=== PATIENT | female | born 1970 | race Caucasian/White ===

== ENCOUNTER 2016-10-09 15:42 | Inpatient (IN) | payer MEDICAID ==
[~2016-10-09] VITALS: Ht 165.1 cm; Wt 57.0 kg
[2016-10-09] VITALS (16 sets, daily range): BP systolic 95–118; BP diastolic 57–73; PULSE 82–90; RESP 13–22; TEMP 98.1; Ht 165.1 cm; Wt 57.0 kg
[2016-10-09] MEDS ORDERED: ONDANSETRON 4 MG INJ IV STA (16:05)
[2016-10-09] MEDS ORDERED: morphine 4 MG/ML VIAL IV STA (16:05)
[2016-10-09] MEDS ORDERED: SOD CHLORIDE 0.9% 1,000 ML IV STA (16:05)
[2016-10-09 16:20] LABS: BASOPHIL # 0.1 10^3/ul (0.0-0.1); BASOPHILS % 0.2 % (0.0-2.0); HEMATOCRIT 44.1 % (37.0-47.0); HEMOGLOBIN 15.4 g/dl (12.0-16.0); LYMPHOCYTES # 0.8 10^3/ul (0.8-2.9); LYMPHOCYTES % 3.7 % (15.0-51.0); MEAN CORPUSCULAR HEMOGLOBIN 30.4 pg (29.0-33.0); MEAN CORPUSCULAR HGB CONC 34.9 g/dl (32.0-37.0); MEAN PLATELET VOLUME 10.4 fl (7.4-10.4); MONOCYTE # 0.4 10^3/ul (0.3-0.9); NEUTROPHIL # 19.4 10^3/ul (1.6-7.5); NEUTROPHILS % 93.6 % (39.0-77.0); PLATELET COUNT 308 10^3/UL (140-415); RED BLOOD COUNT 5.07 10^6/ul (4.20-5.40); RED CELL DISTRIBUTION WIDTH 13.2 % (11.5-14.5); WHITE BLOOD COUNT 20.8 10^3/ul (4.8-10.8)
[2016-10-09 16:29] LABS: ADD UMIC YES; UR ASCORBIC ACID NEGATIVE (NEGATIVE); UR BACTERIA FEW /HPF (NONE SEEN); UR BILIRUBIN (Dip) NEGATIVE (NEGATIVE); UR BLOOD (Dip) 1+ mg/dL (NEGATIVE); UR CLARITY SLIGHTLY CLOUDY (CLEAR); UR COLOR YELLOW (YELLOW); UR GLUCOSE (Dip) NEGATIVE (NEGATIVE); UR KETONES (Dip) 2+ mg/dL (NEGATIVE); UR LEUKOCYTE ESTERASE (Dip) NEGATIVE Leu/ul (NEGATIVE); UR MUCUS MANY /HPF (NONE SEEN); UR NITRITE (Dip) NEGATIVE (NEGATIVE); UR RBC 3 /HPF (0-5); UR SPECIFIC GRAVITY (Dip) 1.025 (1.003-1.030); UR TOTAL PROTEIN (Dip) 1+ mg/dl (NEGATIVE); UR UROBILINOGEN (Dip) NEGATIVE (NEGATIVE)
[2016-10-09 16:39] LABS: ALBUMIN 4.7 g/dl (3.3-4.9); ALBUMIN/GLOBULIN RATIO 1.23; CALCIUM 9.5 mg/dl (8.4-10.2); CREATININE 0.61 mg/dl (0.44-1.00); POTASSIUM 3.5 mmol/L (3.5-5.1); TOTAL PROTEIN 8.5 g/dl (6.1-8.1)
--- NOTE | 2016-10-09 17:15 | RADRPT ---
PROCEDURE: CT Abdomen and Pelvis without contrast. CLINICAL INDICATION: Abdominal pain TECHNIQUE: CT scan of the abdomen and pelvis without contrast was performed. The patient was scann ed without intravenous contrast. Coronal and sagittal reformatted images were obtained from the axi al source images. Use of iterative reconstruction technique was employed. Images were reviewed on a high-resolution PACS workstation. images. The calculated radiation dose measures 325.28 mGy centimet ers. The CTDI measures 6.34 mGy. One or more of the following dose reduction techniques were used: - Automated exposure control. - Adjustment of the mA and/or kV according to patient size . - Use of iterative reconstruction technique. Images were reviewed on a high-resolution PACS workstation COMPARISON: None. FINDINGS: CT abdomen: The lung bases are clear. The heart size is normal, without pericardial thickening or effusion. Th e liver is normal in size and density without focal mass or intrahepatic biliary dilatation. The sp gary is normal in size and homogeneous in density. The stomach is partially collapsed, but is gross ly unremarkable. The pancreas as visualized is normal. The gallbladder and biliary tree are unrem arkable and there is no evidence for biliary dilatation. The adrenal glands are symmetric and ruben l. The kidneys are symmetrically unremarkable as well. No renal calculus or obstructive uropathy o r mass lesion is seen. The aorta is of normal caliber. There is no retroperitoneal lymphadenopathy. The tosha hepatis la on is clear. The bowel and mesentery, as visualized, are equally unremarkable. CT pelvis: The small bowel loops situated within the pelvis are unremarkable. The pelvic organs are normal. Th ere is a markedly thickened appendix with surrounding mesenteric inflammation. There are also a sma ll foci of extraluminal air at the tip of the appendix. No nodes are present in the mesentery in th e right lower quadrant. No drainable fluid collection is identified. The surrounding osseous structures are intact. Sclerotic foci are seen in the right and left ilium, presumably bone islands. In addition is for a over the IMPRESSION: 1. Evidence of acute appendicitis with findings of microperforation at the tip noting small foci of extraluminal air. No drainable fluid collection is identified. 2. Reactive mesenteric lymphadenopathy. 3. Multiple, benign-appearing sclerotic foci presumably bone islands. No further follow-up is nece ssary unless there are focal symptoms in this region or if there is history of malignancy. In this i s the case a non emergent MRI of the pelvis may be obtained for further assessment. RPTAT: PP .Wilder Hansen MD, MD Date Time Electronically viewed and signed by .Wilder Hansen MD, on 10/09/2016 17:15 .d/
--- NOTE | 2016-10-09 18:12 | ERA ---
ER Documentation Chief Complaint Date/Time DATE: 10/09/16 TIME: 18:08 Chief Complaint RT LOWER ABD PAIN X 2 DAYS WITH VOMITING , SENT BY PMD TO [facility] This 45-year-old female presents with right lower quadrant abdominal pain for 2- 3 days. She has had some episodes of vomiting. She has not been able to eat since yesterday around 7 PM. She did see her primary care doctor who sent her to the emergency room out of worry for appendicitis. Pain is described as a sharp pain. ROS All systems reviewed and are negative except as per history of present illness. Medications Home Meds No Active Prescriptions or Reported Meds Allergies Allergies: Coded Allergies: No Known Allergy (Unverified , 10/09/16) PMhx/Soc Medical and Surgical Hx: pt denies Medical Hx History of Surgery: Yes (HYSTERECTOMY) Anesthesia Reaction: No Hx Alcohol Use: No Hx Substance Use: No Hx Tobacco Use: No Smoking Status: Never smoker Physical Exam Vitals Vital Signs Date Time Temp Pulse Resp B/P Pulse Ox O2 Delivery O2 Flow Rate FiO2 10/09/16 17:03 95 22 120/70 99 Room Air 10/09/16 16:15 98.1 83 18 116/74 100 Room Air 10/09/16 15:46 99.6 92 18 127/57 100 Physical Exam Const: [] Mild distress Head: Atraumatic Eyes: Normal Conjunctiva ENT: Normal External Ears, Nose and Mouth. Neck: Full range of motion..~ No meningismus. Resp: Clear to auscultation bilaterally Cardio: Regular rate and rhythm, no murmurs Abd: Soft, moderate right lower quadrant and mid abdominal tenderness with mild voluntary guarding, non distended. Normal bowel sounds Skin: No petechiae or rashes Back: No midline or flank tenderness Ext: No cyanosis, or edema Neur: Awake and alert Psych: Normal Mood and Affect Result Diagram: 10/09/16 1600 10/09/16 1600 Results 24 hrs Laboratory Tests Test 10/09/16 16:00 White Blood Count 20.810^3/ul Red Blood Count 5.0710^6/ul Hemoglobin 15.4g/dl Hematocrit 44.1% Mean Corpuscular Volume 87.0fl Mean Corpuscular Hemoglobin 30.4pg Mean Corpuscular Hemoglobin Concent 34.9g/dl Red Cell Distribution Width 13.2% Platelet Count 02104^3/UL Mean Platelet Volume 10.4fl Neutrophils % 93.6% Lymphocytes % 3.7% Monocytes % 2.0% Eosinophils % 0.0% Basophils % 0.2% Nucleated Red Blood Cells % 0.0/100WBC Neutrophils # 19.410^3/ul Lymphocytes # 0.810^3/ul Monocytes # 0.410^3/ul Eosinophils # 0.010^3/ul Basophils # 0.110^3/ul Nucleated Red Blood Cells # 0.010^3/ul Urine Color YELLOW Urine Clarity SLIGHTLY CLOUDY Urine pH 5.0 Urine Specific [place] 1.025 Urine Ketones 2+mg/dL Urine Nitrite NEGATIVEmg/dL Urine Bilirubin NEGATIVEmg/dL Urine Urobilinogen NEGATIVEmg/dL Urine Leukocyte Esterase NEGATIVELeu/ul Urine Microscopic RBC 3/HPF Urine Microscopic WBC 2/HPF Urine Bacteria FEW/HPF Urine Mucus MANY/HPF Urine Hemoglobin 1+mg/dL Urine Glucose NEGATIVEmg/dL Urine Total Protein 1+mg/dl Sodium Level 142mmol/L Potassium Level 3.5mmol/L Chloride Level 99mmol/L Carbon Dioxide Level 24mmol/L Anion Gap 23 Blood Urea Nitrogen 12mg/dl Creatinine 0.61mg/dl Glucose Level 123mg/dl Calcium Level 9.5mg/dl Total Bilirubin 1.0mg/dl Direct Bilirubin 0.00mg/dl Indirect Bilirubin 1.0mg/dl Aspartate Amino Transf (AST/SGOT) 27IU/L Alanine Aminotransferase (ALT/SGPT) 36IU/L Alkaline Phosphatase 87IU/L Total Protein 8.5g/dl Albumin 4.7g/dl Globulin 3.80g/dl Albumin/Globulin Ratio 1.23 Lipase 32U/L Current Medications Medications (Trade) Dose Ordered Sig/Kofi Route PRN Reason Start Time Stop Time Status Last Admin Dose Admin Sodium Chloride (NS) 1,000 ml @ 1,000 mls/hr Q1H STAT IV 10/09/16 16:05 10/09/16 17:04 DC 10/09/16 16:20 Morphine Sulfate (morphine) 4 mg ONCE STAT IV 10/09/16 16:05 10/09/16 16:08 DC 10/09/16 16:20 Ondansetron HCl (Zofran Inj) 4 mg ONCE STAT IV 10/09/16 16:05 10/09/16 16:08 DC 10/09/16 16:20 Ceftriaxone Sodium 1 gm 1 gm ONCE ONCE IM 10/09/16 18:30 10/09/16 18:31 Metronidazole 100 ml @ 100 mls/hr ONCE ONCE IVPB 10/09/16 18:30 10/09/16 19:29 Sodium Chloride (NS) 1,000 ml @ 1,000 mls/hr Q1H ONCE IV 10/09/16 18:30 10/09/16 19:29 Procedures/MDM Acute appendicitis. Patient was given 2 L of fluid as well as Zofran, morphine. Rocephin and Flagyl IV also. Her pain was helped but not resolved her nausea was completely resolved. I spoke with Dr. Rm Fried, general surgeon personnel generalist manager who is in the OR and asked that the patient be sent immediately to the operating room. She is being admitted to Dr. Ray. CT abdomen pelvis interpretation: Acute appendicitis, no bowel obstruction, mild microperforation evidence, no fractures Departure Diagnosis: Primary Impression: Acute appendicitis Condition: Serious RAYMON CARUSO DO Oct 09, 2016 18:12
[2016-10-09] MEDS ORDERED: metroNIDAZOLE 500 MG/NS (PMX) 100 ML IVPB ONE (18:30)
[2016-10-09] MEDS ORDERED: ONDANSETRON 4 MG INJ IV PRN ×3 (18:30→19:30)
[2016-10-09] MEDS ORDERED: SOD CHLORIDE 0.9% 1,000 ML IV ONE (18:30)
[2016-10-09] MEDS ORDERED: ACETAMINOPHEN 325 MG TAB PO PRN ×2 (18:30→19:30)
[2016-10-09] MEDS ORDERED: CEFTRIAXONE 1 GM INJ IM ONE (18:30)
[2016-10-09] MEDS ORDERED: PROPOFOL 20 ML ONE (18:41)
[2016-10-09] MEDS ORDERED: GLYCOPYRROLATE 0.4 MG INJ ONE (18:41)
[2016-10-09] MEDS ORDERED: NEOSTIGMINE 3 MG/3 ML SYRINGE ONE (18:41)
[2016-10-09] MEDS ORDERED: CEFAZOLIN 1 GM INJ ONE (18:41)
[2016-10-09] MEDS ORDERED: ROCURONIUM 50 MG INJ ONE (18:41)
[2016-10-09] MEDS ORDERED: DEXAMETHASONE 4 MG/ML 1 ML INJ ONE (18:42)
[2016-10-09] MEDS ORDERED: FENTAnyl 50 MCG/ML VIAL ONE (18:42)
[2016-10-09] MEDS ORDERED: ONDANSETRON 4 MG INJ ONE (18:42)
[2016-10-09] MEDS ORDERED: MIDAZOLAM 1 MG/ML 2 ML INJ ONE (18:42)
--- NOTE | 2016-10-09 18:42 | OPR ---
Date/Time of Note Date/Time of Note DATE: 10/09/16 TIME: 18:41 Operative Report Procedure Description [facility] CONS[facility] DATE OF SERVICE: 10/09/2016 PLACE OF SERVICE: [facility], preoperative area ASSESSMENT AND PLAN: A very-pleasant and otherwise healthy 45-year-old lady without significant known comorbidities her past history, presenting to the emergency department at [facility] for signs and symptoms consistent with acute appendicitis as demonstrated by her history and physical, elevated white blood cell count to [address] scan findings possibly pointing to localized perforation of appendix with no drainable abscess. This is despite her relatively otherwise normal-appearing laboratory values. I counseled her regarding undergoing laparoscopic, possible open appendectomy, reviewed the operation in details including the risks, benefits and alternatives and answered all of her questions. Patient appeared to understand and wish to proceed with surgery. With above assessment, I've recommended the followin. To the operating room for above Thank you very much for having me involved in the care of this very pleasant patient and wonderful family. If you have any questions, please feel free to contact me at [phone]. Nature of presenting problem: Moderate severity Please note that, given the limited number of diagnoses or management options, the moderate amount and/or complexity of data needed to be reviewed, and moderate risk of complications and/or morbidity or mortality, this qualifies as moderate complexity type of decision-making. Disclaimer: Inadvertent spelling and grammatical errors are likely due to EHR/ dictation software use and do not reflect on the quality of delivered patient care. Also, please note that the electronic time recorded on this node does not necessarily reflect the actual time of the visit. Updated clinical summary: Patient is a very-pleasant and otherwise healthy 45-year-old lady without significant known comorbidities her past history, presenting to the emergency department at [facility] for signs and symptoms consistent with acute appendicitis as demonstrated by her history and physical, elevated white blood cell count to [address] scan findings possibly pointing to localized perforation of appendix with no drainable abscess. This is despite her relatively otherwise normal-appearing laboratory values. Comorbidities: 1. Hysterectomy for fibroids at [place] 2017 CONSULTATION REQUESTED BY: Lisa Ray MD HISTORY OF PRESENT ILLNESS: The patient is very-pleasant and otherwise healthy 45-year-old lady without significant known comorbidities her past history, presenting to the emergency department at [facility] for signs and symptoms consistent with acute appendicitis as demonstrated by her history and physical, elevated white blood cell count to [address] scan findings possibly pointing to localized perforation of appendix with no drainable abscess. This is despite her relatively otherwise normal-appearing laboratory values. Her pain started about 2 days ago. There was associated nausea and vomiting (approximately 10 episodes). She also reported having fevers. She was seen at her primary care physician's office and she was sent to the emergency room for workup regarding appendicitis. Pain was described as periumbilical with radiation to right lower quadrant. Some nausea but no significant vomiting and no blood in the stool or urine. No fevers or chills reported. No other major complaints. ALLERGIES: NO KNOWN DRUG ALLERGIES MEDICATIONS Documented in the electronic records and reviewed by me. Please see the electronic records for details, as well as details for inpatient medications which were also reviewed by me. SOCIAL HISTORY: The patient lives with family.-Tob;-ETOH;-IVDU FAMILY HISTORY: There are no significant medical, surgical or oncologic issues in the family as reported by the patient or reflected in the chart. REVIEW OF SYSTEMS: Other than mentioned above, there were no other pertinent positives or pertinent negatives in an otherwise complete 14 point review of systems. PHYSICAL EXAMINATION GENERAL: The patient appears to be a very pleasant lady of descent lying in bed, appearing stated age, and otherwise in no acute distress. BMI: 23 VITAL SIGNS: AVSS (please also see auto important data if available as well as the electronic records) HEENT: Normocephalic and atraumatic. Extraocular muscles and hearing are grossly intact bilaterally and symmetrically. Sclerae are nonicteric. Oral cavity is clear; oral mucosa appear to be pink and moist. Dentition: fair. NECK: Supple. There is no lymphadenopathy or JVD. There is no submental, submandibular or supraclavicular lymphadenopathy. CHEST: Rises symmetrically with each breath; patient is breathing comfortably. There are no audible wheezes, rales or rhonchi on the gross exam. HEART: Pulse is regular and palpable on the right wrist. Capillary refill is normal. Carotid pulses are palpable bilaterally and symmetrically in the neck. EXTREMITIES: Lower extremities contain no pitting edema around the ankles bilaterally and symmetrically. ABDOMEN: Abdomen is soft, mild to moderately tender in the right lower quadrant and nondistended. No evidence of ascites, organomegaly, caput medusae , engorged subcutaneous veins, or other abnormalities. There are no peritoneal signs or guarding. SKIN: Appears to be pink and feels warm to touch. NEUROLOGIC: Awake, alert, and follows commands appropriately. LABORATORY DATA: White blood cell count 20.8, hemoglobin 15.4, platelets 308. Electrolytes are normal. CO2 24. Creatinine 0.61. Liver function and injury parameters normal. Albumin 4.7 before resuscitation. Lipase 32. Urinalysis showed no nitrite or leukocyte Estrace. IMAGING: See electronic chart. Please note that I've personally reviewed all pertinent available images and I agree in general with their overall reported findings. CT scan abdomen and pelvis [facility] 10/09/2016 IMPRESSION: 1. Evidence of acute appendicitis with findings of microperforation at the tip noting small foci of extraluminal air. No drainable fluid collection is identified. 2. Reactive mesenteric lymphadenopathy. 3. Multiple, benign-appearing sclerotic foci presumably bone islands. No further follow-up is necessary unless there are focal symptoms in this region or if there is history of malignancy. In this is the case a non emergent MRI of the pelvis may be obtained for further assessment. VIDAL ARROYO M.D. Oct 09, 2016 18:42
[2016-10-09 18:57] LABS: INR 0.95; PROTIME 12.7 Sec (12.2-14.2)
[2016-10-09] MEDS ORDERED: PHENYLephrine (100 MCG/ML) 5ML SYG ONE (19:01)
[2016-10-09] MEDS ORDERED: SOD CHLORIDE 0.9% 1,000 ML IV SCH (19:08)
[2016-10-09] MEDS ORDERED: BUPIVACAINE 0.25%/EPI (SDV) 30 ML INJ INJ ONE (19:13)
[2016-10-09] MEDS ORDERED: KETOROLAC 30 MG INJ ONE (19:17)
[2016-10-09] MEDS ORDERED: LABETALOL HCL 20MG INJ IV PRN (19:30)
[2016-10-09] MEDS ORDERED: DIPHENHYDRAMINE 50 MG INJ IV PRN (19:30)
[2016-10-09] MEDS ORDERED: hydrALAzine 20 MG INJ IV PRN (19:30)
[2016-10-09] MEDS ORDERED: IPRATROPIUM (NEB) 0.5 MG/2.5 ML AMP HHN PRN (19:30)
[2016-10-09] MEDS ORDERED: ALBUTEROL 0.083% (NEB) 2.5 MG/3 ML AMP HHN PRN (19:30)
[2016-10-09] MEDS ORDERED: HYDROCODONE/APAP (5/325) TAB PO PRN (19:30)
[2016-10-09] MEDS ORDERED: LORAZEPAM 2 MG INJ IV PRN (19:30)
[2016-10-09] MEDS ORDERED: NITROGLYCERIN (SL) 0.4 MG TAB SL PRN (19:30)
[2016-10-09] MEDS ORDERED: NACL 0.9% 3 ML SYG IV SCH (19:30)
[2016-10-09] MEDS ORDERED: NA PHOSPHATE/BIPHOS 133 ML ENEMA PR PRN ×2 (19:30→20:00)
[2016-10-09] MEDS ORDERED: HYDROmorphONE (0.2 MG/ML) 10ML SYG IV PRN ×3 (19:30)
[2016-10-09] MEDS ORDERED: OXYCODONE/ACETAMINOPHEN (5/325) TAB PO PRN ×2 (19:30)
[2016-10-09] MEDS ORDERED: FENTAnyl 50 MCG/ML VIAL IV PRN ×3 (19:30)
[2016-10-09] MEDS ORDERED: MEPERIDINE 25 MG INJ IV PRN (19:30)
[2016-10-09] MEDS ORDERED: morphine 2 MG INJ IV PRN (19:30)
[2016-10-09] MEDS ORDERED: EPHEDrine SULFATE 50 MG/5 ML SYG IV PRN (19:30)
[2016-10-09] MEDS ORDERED: ALBUTEROL/IPRATROPIUM (NEB) 3 ML AMP HHN PRN (19:30)
[2016-10-09] MEDS ORDERED: MAGNESIUM HYDROXIDE 30ML CUP PO PRN (19:30)
[2016-10-09] MEDS ORDERED: DOCUSATE SODIUM 100 MG CAP PO PRN ×2 (19:30→20:00)
[2016-10-09] MEDS ORDERED: MIDAZOLAM 1 MG/ML 2 ML INJ IV PRN (19:30)
[2016-10-09] MEDS ORDERED: TRIMETHOBENZAMIDE 100 MG/ML VIAL IM PRN (19:30)
[2016-10-09] MEDS ORDERED: BISACODYL 10 MG SUPP PR PRN (20:00)
[2016-10-09] MEDS ORDERED: HYDROmorphONE 1 MG/ML SYG IV PRN (20:00)
--- NOTE | 2016-10-09 20:10 | OPR ---
Date/Time of Note Date/Time of Note DATE: 10/09/16 TIME: 20:10 Operative Report Procedure Description [facility]IENT [facility] PLACE OF SERVICE: [facility] DATE OF SURGERY: 10/09/2016 PREOPERATIVE DIAGNOSIS: 1. Acute appendicitis with possible perforation 2. Hysterectomy for fibroids at [place] [address] POSTOPERATIVE DIAGNOSIS: 1. Acute appendicitis with likely sealed perforation and presence of intra- abdominal pus 2. Hysterectomy for fibroids at [place] 2016 OPERATION: 1. Laparoscopic appendectomy SURGEON: Vidal Arroyo M.D. AUTISM MOTOR SPECIALIST: Hever ANESTHESIA: General endotracheal tube anesthesia ANESTHESIOLOGIST: Marco A Rendon M.D. BRIEF SUMMARY: An otherwise uncomplicated laparoscopic appendectomy was performed with findings of likely sealed perforation of appendix with presence of pus in the abdominal cavity. Updated clinical summary: Patient is a very-pleasant and otherwise healthy 45-year-old lady without significant known comorbidities her past history, presenting to the emergency department at [facility] for signs and symptoms consistent with acute appendicitis as demonstrated by her history and physical, elevated white blood cell count to [address] scan findings possibly pointing to localized perforation of appendix with no drainable abscess. This is despite her relatively otherwise normal-appearing laboratory values. Comorbidities: 1. Hysterectomy for fibroids at [place] [address] BRIEF HISTORY: The patient is a very-pleasant and otherwise healthy 45-year-old lady without significant known comorbidities her past history, presenting to the emergency department at [facility] for signs and symptoms consistent with acute appendicitis as demonstrated by her history and physical, elevated white blood cell count to [address] scan findings possibly pointing to localized perforation of appendix with no drainable abscess. This is despite her relatively otherwise normal-appearing laboratory values. I met with the patient and family (daughter) and counseled them regarding the possible options of treatment, and I strongly suggested a laparoscopic, possible open appendectomy. We reviewed the operation in detail as well as the risks, benefits , alternatives, and expected outcomes of this operation. After careful consideration of all the risks, benefits, and alternatives, the patient and family appeared to understand those risks and wished to proceed with surgery. For a detailed report of my consultation with patient and family, please refer to my separate consultation note. STATEMENT OF THE INFORMED CONSENT: The patient and family appeared to understand the risks of the operation to include, but not be limited to risk of postoperative pain and scar tissue, possible infection or bleeding requiring other interventions such as opening the wound, placement of drainage catheters, or other operative interventions; possible injury to surrounding to structures including bowel, bladder, bile duct, or blood vessels, or solid organs such as liver, kidney, or pancreas requiring other interventions or procedures; possible leakage of bowel from anastomotic sites or suture lines causing significant increase in morbidity and mortality and requiring multiple interventions including but not limited to, placement of drainage catheters, imaging studies, as well as operative interventions; possible other source of sepsis such as urinary tract infections or pneumonias, or other sources of potentially life threatening problems such as deep venous thrombus formation causing pulmonary embolism, myocardial arrhythmias and infarctions, and even . After careful consideration of all their options, the patient and family appeared to understand and wished to proceed with surgery. DESCRIPTION OF PROCEDURE: After obtaining informed consent, the patient was brought into the operating room and was placed in a normal supine position, where successful general endotracheal tube anesthesia was performed. Intravenous access was already in place and intravenous antimicrobials had been appropriately chosen and dosed prior to the operation. The patient's abdominal skin was prepped and draped from the nipple line down to the level of the upper thighs in the usual sterile fashion. We then called a surgical time-out where the patient's identification, date of , nature of the operation, allergies , presence of intravenous antimicrobials, presence of needed equipment, and any other concerns were reviewed and agreed upon by all members of the operating room team. We then started the operation by placing a 5 mm skin incision in the left lower quadrant and then introduced a 5 mm [employer] trocar into the peritoneal space, visualizing all the layers of the abdominal wall as we entered. Note that there was no indication of any injury to underlying structures with our entry into the peritoneal space. We insufflated the abdominal cavity to a maximum pressure of 15 mmHg and again inspected the area of insertion and ensured no obvious injury to underlying structures prior to inspecting the abdominal cavity and showing no obvious pus, bowel contents, or other abnormal features. We could not see the appendix very well. There was evidence of pus in the abdominal cavity. We, therefore, injected the future sites of our other trocars with 0.25% Marcaine with epinephrine and placed a 5 mm [employer] trocar into the midline suprapubic area, taking care not to injure the bladder. We also placed a 12 mm trocar in the umbilical midline area, all under direct visualization. With our instruments in place, we had excellent visualization and access to the right lower quadrant. We then identified the appendix, which was inflamed but had a normal base coming out of the cecum. There was pus in the abdominal cavity and in the pelvis that we suctioned off. The appendix appeared to be focally necrotic in the middle of the body and adherent onto the right pelvic sidewall, but no organized abscess was found around it. The base appeared to be healthy. I then went ahead and used judicious amount of cautery as well as mostly blunt dissection to circumferentially isolate the base of the appendix and then transected this using one firing of the white load of the Endo-RUTH stapler. We also repeated the firing on the mesentery of the appendix and completely disconnected the organ from the colon, delivered this out through the 12 mm trocar site inside of an EndoCatch bag without having to enlarge the fascial defect as well as without contaminating the wound. The specimen was sent to Pathology for further analysis. We then ensured adequate hemostasis and bile stasis, suctioned off any remaining purulent fluid from the pelvis and abdominal cavity, removed all our equipment including the pneumoperitoneum from the abdominal cavity prior to closing the infraumbilical fascia with 1 figure-of -eight 0 Vicryl suture on a UR-6 needle, washing the wounds with copious amounts of normal saline, injecting the initial insertion point of the trocar with 0.25% Marcaine with epinephrine, and then closing the skin using interrupted 4-0 Monocryl sutures. Light dressing was then applied. At the end of the operation, both the sponge count and needle count were reportedly correct x2. The patient tolerated the procedure without any reported complications. ESTIMATED BLOOD LOSS: Less than 10 mL. BLOOD OR BLOOD PRODUCT TRANSFUSIONS: None to my knowledge. SPECIMENS: 1. Appendix COMPLICATIONS: None. DISPOSITION: Recovery area. Disclaimer: Inadvertent spelling and grammatical errors are likely due to EHR/ dictation software use and do not reflect on the quality of delivered patient care. VIDAL ARROYO M.D. Oct 09, 2016 20:10
[2016-10-09 20:54] LABS: INR 1.09; PROTIME 14.1 Sec (12.2-14.2); PT RATIO 1.1
[2016-10-09 20:55] LABS: PARTIAL THROMBOPLASTIN TIME 27.5 Sec (25.0-35.0)
[2016-10-09] MEDS: HYDROmorphONE 1 MG/ML SYG IV PRN (22:00)
[2016-10-09] MEDS: HEPARIN 5,000 UNIT/0.5 ML VIAL SC SCH (22:04)
[2016-10-09] MEDS: D5W-0.45 NACL + KCL 20 MEQ 1,000 ML IV SCH (22:05)
[2016-10-10] MEDS: PIPER-TAZO 3.375 GM IV (PMX) 100 ML IVPB SCH ×5 (00:07→20:46)
[2016-10-10 02:07] VITALS: BP 124/68; PULSE 94; RESP 18
[2016-10-10] MEDS: HYDROmorphONE 1 MG/ML SYG IV PRN ×4 (02:47→22:31)
[2016-10-10 04:17] VITALS: BP 95/65; PULSE 74; RESP 18
--- NOTE | 2016-10-10 05:37 | HP ---
Date/Time of Note Date/Time of Note DATE: 10/10/16 TIME: 05:28 Assessment/Plan VTE Prophylaxis VTE Prophylaxis Intervention: SCD's Lines/Catheters IV [facility]from [facility]): Peripheral IV Assessment/Plan Assessment/Plan 1. Acute appendicitis with likely sealed perforation and presence of intra- abdominal pus: Status post successful laparoscopic appendectomy - patient is in stable condition and has been tolerating water intake. - will continue Zosyn for now. Will provide pain medication and antiemetics as needed. 2. Sepsis, as evidenced by leukocytosis and tachycardia: Secondary to perforated appendicitis and likely UTI from yeast infection (cottage cheese like discharge from vagina) -Continue Zosyn. I will start patient on fluconazole. Will follow up on urine culture and blood culture results. 3. Urinary retention: As a result of post surgery vs UTI - s/p in-n-out cath with over 800 cc of urine. We will monitor for now without placement of Correa catheter. 4. History of uterine fibroids: Status post JOSE several months ago. HPI/ROS Admit Date/Time Admit Date/Time Hx of Present Illness This is a 45-year-old female with a history of uterine fibroid status post total abdominal hysterectomy several months ago who presented to the emergency department with 2 days history of right-sided abdominal pain and vomiting. CT abdomen/pelvis showed acute appendicitis with microperforation. She had WBC of almost 21,000. She was taken to the OR and she is now status post laparoscopic appendectomy. Postop diagnosis is Acute appendicitis with likely sealed perforation and presence of intra-abdominal pus. After patient was brought to the floor she was feeling well with only minimal abdominal pain with movement. Later on however patient had difficulty with urination. Bladder scan showed about 600 cc of urine. We just did in-n-out cath and 800 cc of urine was obtained. Per nurse, it appears that patient has a yeast infection was cottage cheese like discharge from her vagina. Overall however patient is feeling well with minimal pain at the surgical site. She denied chest pain, shortness of breath, fever/chills nausea or vomiting. . PMH/Family/Social Social History Smoking Status: Never smoker Exam/Review of Systems Vital Signs Vitals Vital Signs Date Time Temp Pulse Resp B/P Pulse Ox O2 Delivery O2 Flow Rate FiO2 10/10/16 04:17 98.3 74 18 95/65 98 Room Air 7/22/17 20:48 2.0 Intake and Output 10/09/16 10/09/16 10/10/16 15:00 23:00 07:00 Intake Total 1500 ml 100 ml Output Total 15 ml Balance 1485 ml 100 ml Exam Constitutional: alert, oriented, well developed Head: atraumatic, normocephalic Eyes: EOMI, PERRL Respiratory: clear to auscultation, normal air movement Cardiovascular: nl pulses, regular rate and rhythm Gastrointestinal: other (minimal tenderness around surgical sites), soft, surgical scars Extremities: normal pulses Labs Result Diagram: 10/09/16 1600 10/09/16 1600 Medications Medications Current Medications Ondansetron HCl (Zofran Inj) 4 mg Q6H PRN IV NAUSEA AND/OR VOMITING; Start at 19:30 Acetaminophen (Tylenol Tab) 650 mg Q6H PRN PO PAIN LEVEL 1-3 OR FEVER; Start at 19:30 Magnesium Hydroxide (Milk Of Mag) 30 ml DAILY PRN PO CONSTIPATION; Start at 19:30 Heparin Sodium (Porcine) (Heparin (5000 Units/0.5 ml)) 5,000 unit Q12 SC Last administered on 10/09/16 22:04; Admin Dose 5,000 UNIT; Start 10/09/16 at 21:00 ; Status Future hold Lorazepam 0.5 mg 0.5 mg Q6H PRN IV ANXIETY; Start 10/09/16 at 19:30 Piperacillin Sod/ Tazobactam Sod (Zosyn 3.375gm/ 100 ml (Pmx)) 100 ml @ 200 mls /hr Q6 IVPB Last administered on 10/10/16 05:22; Admin Dose 200 MLS/HR; Start 10/10/16 at 00:00 Hydralazine HCl (Apresoline) 10 mg Q6H PRN IV ELEVATED BLOOD PRESSURE; Start at 19:30 Nitroglycerin 1 tab 1 tab Q5M PRN SL ANGINA; Start 10/09/16 at 19:30 Potassium Chloride/Dextrose/ Sod Cl (D5-1/2ns + KCl 20 Meq) 1,000 ml @ 100 mls/ hr Q10H IV Last administered on 10/09/16 22:05; Admin Dose 100 MLS/HR; Start 10/09/16 at 19:53 Acetaminophen/ Hydrocodone Bitart ([place] (5/325)) 1 tab Q4H PRN PO PAIN LEVEL 4 -7; Start 10/09/16 at 20:00 Acetaminophen/ Hydrocodone Bitart ([place] (5/325)) 2 tab Q4H PRN PO PAIN LEVEL 7 -10; Start 10/09/16 at 20:00 Hydromorphone HCl (Dilaudid) 0.5 mg Q2H PRN IV PAIN; Start 10/09/16 at 20:00 Hydromorphone HCl (Dilaudid) 1 mg Q2H PRN IV PAIN Last administered on t 02:47; Admin Dose 1 MG; Start 10/09/16 at 20:00 Docusate Sodium (Colace) 100 mg BID PRN PO CONSTIPATION; Start 10/09/16 at 20: 00 Bisacodyl (Dulcolax Supp) 10 mg BID PRN [place] CONSTIPATION; Start 10/09/16 at 20: 00 Sodium Biphosphate/ Sodium Phosphate (Fleet Enema) 133 ml BID PRN [place] CONSTIPATION; Start 10/09/16 at 20:00 Famotidine (Pepcid Iv) 20 mg DAILY IV ; Start 10/10/16 at 09:00 YAS ESTRADA MD Oct 10, 2016 05:37
[2016-10-10 05:38] LABS: INR 1.3; PARTIAL THROMBOPLASTIN TIME 27.6 Sec (25.0-35.0); PROTIME 16.3 Sec (12.2-14.2); PT RATIO 1.3
[2016-10-10 05:46] LABS: CHOL/HDL RATIO 2.7 RATIO
[2016-10-10] MEDS: D5W-0.45 NACL + KCL 20 MEQ 1,000 ML IV SCH (05:55)
[2016-10-10] MEDS ORDERED: PANTOPRAZOLE 40 MG INJ IV SCH (06:00)
[2016-10-10 06:02] LABS: ALBUMIN 2.7 g/dl (3.3-4.9); ALBUMIN/GLOBULIN RATIO 1.03; BILIRUBIN,INDIRECT 1.2 mg/dl (0-1.1); BILIRUBIN,TOTAL 1.2 mg/dl (0.2-1.3); CALCIUM 7.8 mg/dl (8.4-10.2); CREATININE 0.64 mg/dl (0.44-1.00); POTASSIUM 4.1 mmol/L (3.5-5.1); TOTAL PROTEIN 5.3 g/dl (6.1-8.1)
[2016-10-10 06:16] LABS: THYROID STIMULATING HORMONE 1.15 MIU/L (0.465-4.680)
[2016-10-10] MEDS ORDERED: SOD CHLORIDE 0.9% 250 ML IV ONE (07:00)
[2016-10-10 07:44] LABS: ABNORMAL IP MESSAGE 1; BASOPHIL # 0.1 10^3/ul (0.0-0.1); BASOPHILS % 0.2 % (0.0-2.0); HEMATOCRIT 31.3 % (37.0-47.0); HEMOGLOBIN 10.7 g/dl (12.0-16.0); LYMPHOCYTES # 0.7 10^3/ul (0.8-2.9); LYMPHOCYTES % 3.2 % (15.0-51.0); MEAN CORPUSCULAR HEMOGLOBIN 30.8 pg (29.0-33.0); MEAN CORPUSCULAR HGB CONC 34.2 g/dl (32.0-37.0); MEAN CORPUSCULAR VOLUME 90.2 fl (82.0-101.0); MEAN PLATELET VOLUME 11.3 fl (7.4-10.4); MONOCYTE # 0.2 10^3/ul (0.3-0.9); MONOCYTES % 1.1 % (0.0-11.0); NEUTROPHIL # 20.2 10^3/ul (1.6-7.5); PLATELET COUNT 237 10^3/UL (140-415); RED BLOOD COUNT 3.47 10^6/ul (4.20-5.40); RED CELL DISTRIBUTION WIDTH 13.6 % (11.5-14.5); WHITE BLOOD COUNT 21.3 10^3/ul (4.8-10.8)
[2016-10-10 07:53] LABS: NEUTROPHILS % 94.9 % (39.0-77.0); POSITIVE DIFF @See below
[2016-10-10] MEDS ORDERED: FLUCONAZOLE 200 MG/NS (PMX) 100 ML IVPB SCH (08:00)
[2016-10-10] MEDS: HEPARIN 5,000 UNIT/0.5 ML VIAL SC SCH ×2 (08:42→21:01)
[2016-10-10] MEDS ORDERED: ENOXAPARIN 40 MG/0.4 ML SYG SC SCH (09:00)
[2016-10-10] MEDS ORDERED: FAMOTIDINE 20 MG INJ IV SCH (09:00)
[2016-10-10 09:18] LABS: CALCIUM 7.8 mg/dl (8.4-10.2); CREATININE 0.65 mg/dl (0.44-1.00); MAGNESIUM 1.6 mg/dl (1.7-2.5); POTASSIUM 4.2 mmol/L (3.5-5.1)
[2016-10-10 09:44] VITALS: BP 93/50; RESP 18
--- NOTE | 2016-10-10 11:44 | PN ---
Date/Time of Note Date/Time of Note DATE: 10/10/16 TIME: 11:44 Assessment/Plan Lines/Catheters IV Catheter Type (from [facility]): Peripheral IV Correa in Place (from [facility]): No Assessment/Plan Assessment/Plan [facility] Progress Note Date of Service: 10/10/2016 Place of service: [facility] fourth floor Today's Assessment & Plan: Overall stable and doing well. No evidence for obvious postoperative complications or surgical site infections. No indication for acute surgical intervention. Given the amount of pus in the abdomen, I recommend that we keep the patient in house at least 1 more day and monitor her carefully. With above assessment, I've recommended the following for today: 1. Keep in-house 2. Increased activity 3. Increase incentive spirometry 4. Labs in a.m. 5. Regular diet 6. Possible discharge plans for tomorrow 7. Continue antimicrobials for 3 more doses Thank you again for your great care of this very pleasant patient and wonderful family. If there are any questions, please feel free to call me at [phone]. Nature of presenting problem: High severity Please note that, given the multiple number of diagnoses or management options, the moderate amount and/or complexity of data needed to be reviewed, and I risk of complications and/or morbidity or mortality, this qualifies as moderate to high complexity type of decision-making. Disclaimer: Inadvertent spelling and grammatical errors are likely due to EHR/ dictation software use and do not reflect on the quality of delivered patient care. Also, please note that the electronic time recorded on this node does not necessarily reflect the actual time of the visit. Updated clinical summary: Patient is a very-pleasant and otherwise healthy 45-year-old lady without significant known comorbidities her past history, presenting to the emergency department at [facility] for signs and symptoms consistent with acute appendicitis as demonstrated by her history and physical, elevated white blood cell count to [address] scan findings possibly pointing to localized perforation of appendix with no drainable abscess. This is despite her relatively otherwise normal-appearing laboratory values. Status post an otherwise uncomplicated laparoscopic appendectomy was performed with findings of likely sealed perforation of appendix with presence of pus in the abdominal cavity at [facility] on 10/09/2016. Comorbidities: 1. Acute appendicitis with likely sealed perforation and presence of intra- abdominal pus. Status post an otherwise uncomplicated laparoscopic appendectomy was performed with findings of likely sealed perforation of appendix with presence of pus in the abdominal cavity at [facility] on 2016. 2. Hysterectomy for fibroids at [place] [id number] Subjective: No major events or complaints other than urinary retention that required straight cathing; no major abd pain and under control with medications; no n/v/d ; no sob or cp; + flatus; - BM; + activity Objective: Vitals: See below I's & O's: See below Exam: GENERAL: On exam, the patient was lying in bed and appeared to be comfortable and in no acute distress. ABDOMEN: Soft, nontender and nondistended. Incision dressings are clean, dry and intact without any evidence of obvious underlying erythema, edema, discharge , or hernia. There are no peritoneal signs or guarding. SKIN: Skin appears to be pink and feels warm to touch. NEUROLOGIC: Patient is awake, alert, and follows commands appropriately. Labs: See below Exam/Review of Systems Vital Signs Vitals Vital Signs Date Time Temp Pulse Resp B/P Pulse Ox O2 Delivery O2 Flow Rate FiO2 10/10/16 09:44 98.2 80 18 93/50 99 10/10/16 04:17 Room Air 10/09/16 20:48 2.0 Intake and Output 10/09/16 10/09/16 10/10/16 15:00 23:00 07:00 Intake Total 1500 ml 1400 ml Output Total 15 ml 900 ml Balance 1485 ml 500 ml Results Result Diagram: 10/10/16 0444 10/10/16 0445 VIDAL ARROYO M.D. Oct 10, 2016 11:44
--- NOTE | 2016-10-10 15:28 | PN ---
Date/Time of Note Date/Time of Note DATE: 10/10/16 TIME: 15:23 Assessment/Plan VTE Prophylaxis VTE Prophylaxis Intervention: ambulation Lines/Catheters [facility] Peripheral IV Urinary Cath still in place: No Assessment/Plan Chief Complaint/Hosp Course Patient is a 45-year-old female with a no significant past medical history except for uterine fibroids status post total abdominal hysterectomy who presents for abdominal pain found to have acute appendicitis. Assessment Acute appendicitis with perforation and intra-abdominal pus Sepsis Urinary retention Lactic acidosis, resolved Leukocytosis Plan -General surgery following, status post laparoscopic appendectomy with appendiceal perforation -Continue antibiotics for now -General surgery states possible DC tomorrow Kev Saldaña DO Problems: Subjective 24 Hr Interval Summary Free Text/Dictation abdominal pain, but mild. Exam/Review of Systems Vital Signs Vitals Vital Signs Date Time Temp Pulse Resp B/P Pulse Ox O2 Delivery O2 Flow Rate FiO2 10/10/16 09:44 98.2 80 18 93/50 99 10/10/16 04:17 Room Air 10/09/16 20:48 2.0 Intake and Output 10/09/16 10/09/16 10/10/16 15:00 23:00 07:00 Intake Total 1500 ml 1400 ml Output Total 15 ml 900 ml Balance 1485 ml 500 ml Exam Physical exam General: Patient is laying in bed and answers questions appropriately Mentation: Patient is alert and oriented 4, Head: Normocephalic atraumatic Eyes: EOMI, pupils reactive to light Neck: Supple, nontender, midline Respiratory: Clear to auscultation bilaterally Cardiovascular: regular rate, no obvious murmurs Gastrointestinal: mildly tender to palpation, bowel sounds heard. Neurological: Moves all extremities spontaneously Skin: No new skin lesions Results Result Diagram: 10/10/16 0444 10/10/16 0445 Results 24 hrs Laboratory Tests Test 10/09/16 16:00 10/09/16 20:30 10/10/16 04:44 10/10/16 04:45 White Blood Count 20.8 H 21.3 H Red Blood Count 5.07 3.47 #L Hemoglobin 15.4 10.7 #L Hematocrit 44.1 31.3 #L Mean Corpuscular Volume 87.0 90.2 Mean Corpuscular Hemoglobin 30.4 30.8 Mean Corpuscular Hemoglobin Concent 34.9 34.2 Red Cell Distribution Width 13.2 13.6 Platelet Count 308 237 # Mean Platelet Volume 10.4 11.3 H Neutrophils % 93.6 H 94.9 H Lymphocytes % 3.7 L 3.2 L Monocytes % 2.0 1.1 Eosinophils % 0.0 0.0 Basophils % 0.2 0.2 Nucleated Red Blood Cells % 0.0 0.0 Neutrophils # 19.4 H 20.2 H Lymphocytes # 0.8 0.7 L Monocytes # 0.4 0.2 L Eosinophils # 0.0 0.0 Basophils # 0.1 0.1 Nucleated Red Blood Cells # 0.0 0.0 Prothrombin Time 12.7 14.1 16.3 H Prothrombin Time Ratio 1.0 1.1 1.3 INR International Normalized Ratio 0.95 1.09 1.30 Activated Partial Thromboplast Time 26.0 27.5 27.6 Urine Color YELLOW Urine Clarity SLIGHTLY CLOUDY A Urine pH 5.0 Urine Specific [place] 1.025 Urine Ketones 2+ H Urine Nitrite NEGATIVE Urine Bilirubin NEGATIVE Urine Urobilinogen NEGATIVE Urine Leukocyte Esterase NEGATIVE Urine Microscopic RBC 3 Urine Microscopic WBC 2 Urine Bacteria FEW A Urine Mucus MANY A Urine Hemoglobin 1+ H Urine Glucose NEGATIVE Urine Total Protein 1+ H Sodium Level 142 138 Potassium Level 3.5 4.2 Chloride Level 99 103 Carbon Dioxide Level 24 21 Anion Gap 23 H 18 H Blood Urea Nitrogen 12 11 Creatinine 0.61 0.65 Glucose Level 123 232 H Calcium Level 9.5 7.8 L Total Bilirubin 1.0 1.2 Direct Bilirubin 0.00 0.00 Indirect Bilirubin 1.0 1.2 H Aspartate Amino Transf (AST/SGOT) 27 32 Alanine Aminotransferase (ALT/SGPT) 36 29 Alkaline Phosphatase 87 42 # Total Protein 8.5 H 5.3 #L Albumin 4.7 2.7 #L Globulin 3.80 H 2.60 Albumin/Globulin Ratio 1.23 1.03 Lipase 32 Free Thyroxine 1.19 Hemoglobin A1c 5.1 Lactic Acid Level 2.6 *H Phosphorus Level 3.0 Magnesium Level 1.6 L B-Type Natriuretic Peptide 505 H Triglycerides Level 27 Cholesterol Level 98 L LDL Cholesterol, Calculated 57 HDL Cholesterol 36 Cholesterol/HDL Ratio 2.7 Thyroid Stimulating Hormone (TSH) 1.150 Test 10/10/16 12:16 Lactic Acid Level 1.8 Medications Medications Current Medications Ondansetron HCl (Zofran Inj) 4 mg Q6H PRN IV NAUSEA AND/OR VOMITING; Start at 19:30 Acetaminophen (Tylenol Tab) 650 mg Q6H PRN PO PAIN LEVEL 1-3 OR FEVER; Start at 19:30 Magnesium Hydroxide (Milk Of Mag) 30 ml DAILY PRN PO CONSTIPATION; Start at 19:30 Heparin Sodium (Porcine) (Heparin (5000 Units/0.5 ml)) 5,000 unit Q12 SC Last administered on 10/10/16 08:42; Admin Dose 5,000 UNIT; Start 10/09/16 at 21:00 ; Status Future hold Lorazepam (Ativan) 0.5 mg Q6H PRN IV ANXIETY; Start 10/09/16 at 19:30 Hydralazine HCl (Apresoline) 10 mg Q6H PRN IV ELEVATED BLOOD PRESSURE; Start at 19:30 Nitroglycerin (Nitroglycerin (Sl Tab) 0.4 Mg) 1 tab Q5M PRN SL ANGINA; Start at 19:30 Acetaminophen/ Hydrocodone Bitart ([place] (5/325)) 1 tab Q4H PRN PO PAIN LEVEL 4 -7; Start 10/09/16 at 20:00 Acetaminophen/ Hydrocodone Bitart ([place] (5/325)) 2 tab Q4H PRN PO PAIN LEVEL 7 -10; Start 10/09/16 at 20:00 Hydromorphone HCl (Dilaudid) 0.5 mg Q2H PRN IV PAIN; Start 10/09/16 at 20:00 Hydromorphone HCl (Dilaudid) 1 mg Q2H PRN IV PAIN Last administered on 08:41; Admin Dose 1 MG; Start 10/09/16 at 20:00 Docusate Sodium (Colace) 100 mg BID PRN PO CONSTIPATION; Start 10/09/16 at 20: 00 Bisacodyl (Dulcolax Supp) 10 mg BID PRN [place] CONSTIPATION; Start 10/09/16 at 20: 00 Sodium Biphosphate/ Sodium Phosphate (Fleet Enema) 133 ml BID PRN [place] CONSTIPATION; Start 10/09/16 at 20:00 KEV SALDAÑA Oct 10, 2016 15:28
[2016-10-10 20:58] VITALS: BP 102/61; RESP 16
[2016-10-11] MEDS: PIPER-TAZO 3.375 GM IV (PMX) 100 ML IVPB SCH ×5 (01:30→17:15)
[2016-10-11] MEDS: HYDROmorphONE 1 MG/ML SYG IV PRN ×2 (01:45→06:12)
[2016-10-11 05:22] LABS: BASOPHILS % 0.1 % (0.0-2.0); EOSINOPHILS % 0.1 % (0.0-7.0); HEMATOCRIT 24.2 % (37.0-47.0); HEMOGLOBIN 8.2 g/dl (12.0-16.0); LYMPHOCYTES # 0.9 10^3/ul (0.8-2.9); LYMPHOCYTES % 5.5 % (15.0-51.0); MEAN CORPUSCULAR HEMOGLOBIN 30.8 pg (29.0-33.0); MEAN CORPUSCULAR HGB CONC 33.9 g/dl (32.0-37.0); MONOCYTE # 0.3 10^3/ul (0.3-0.9); MONOCYTES % 1.9 % (0.0-11.0); NEUTROPHIL # 15.6 10^3/ul (1.6-7.5); NEUTROPHILS % 91.6 % (39.0-77.0); PLATELET COUNT 189 10^3/UL (140-415); RED BLOOD COUNT 2.66 10^6/ul (4.20-5.40); RED CELL DISTRIBUTION WIDTH 13.9 % (11.5-14.5)
[2016-10-11 05:36] LABS: INR 1.22; PARTIAL THROMBOPLASTIN TIME 34.7 Sec (25.0-35.0); PROTIME 15.5 Sec (12.2-14.2); PT RATIO 1.2
[2016-10-11 05:37] LABS: ALBUMIN/GLOBULIN RATIO 0.93
[2016-10-11 06:20] LABS: ALBUMIN 2.7 g/dl (3.3-4.9); BILIRUBIN,INDIRECT 0.2 mg/dl (0-1.1); BILIRUBIN,TOTAL 0.2 mg/dl (0.2-1.3); CALCIUM 8.1 mg/dl (8.4-10.2); CREATININE 0.66 mg/dl (0.44-1.00); MAGNESIUM 1.8 mg/dl (1.7-2.5); PHOSPHORUS 2.5 mg/dl (2.5-4.9); POTASSIUM 3.6 mmol/L (3.5-5.1); TOTAL PROTEIN 5.6 g/dl (6.1-8.1)
[2016-10-11 06:25] LABS: CALCIUM 8.1 mg/dl (8.4-10.2); CREATININE 0.69 mg/dl (0.44-1.00); POTASSIUM 3.7 mmol/L (3.5-5.1)
[2016-10-11] MEDS: HYDROCODONE/APAP (5/325) TAB PO PRN ×2 (08:38→16:12)
[2016-10-11] MEDS: HEPARIN 5,000 UNIT/0.5 ML VIAL SC SCH ×2 (08:39→20:27)
[2016-10-11 09:30] VITALS: BP 102/64; RESP 18
--- NOTE | 2016-10-11 13:55 | PN ---
Date/Time of Note Date/Time of Note DATE: 10/11/16 TIME: 13:52 Assessment/Plan VTE Prophylaxis VTE Prophylaxis Intervention: heparin Lines/Catheters IV [facility] (from [facility] [place] Urinary Cath still in place: No Assessment/Plan Chief Complaint/Hosp Course 1. Acute appendicitis with likely sealed perforation and presence of intra- abdominal pus. Status post laparoscopic appendectomy on 10/09/2016. Continue antimicrobials. 2. Urinary retention. Probably secondary to the effects of anesthesia. Resolved. 3. Leukocytosis. Most probably secondary to #1. Continue antibiotics including coverage for anaerobes. 4. Normocytic, normochromic anemia. Etiology unclear. Monitor H&H closely. Transfuse as needed. 5. Lactic acidosis. Probably secondary to #1. Resolved. No evidence of any septic shock. 6. Fluids, electrolytes, and nutrition. Regular diet. 7. DVT prophylaxis. Subcutaneous heparin. 8. Gastrointestinal prophylaxis. H2 receptor blockers. 9. Plan. Patient continues to have leukocytosis. Patient also had a febrile episode in the morning. Patient will definitely benefit from 1 more day of IV antibiotics before discharging the patient home. Case discussed with Dr. Tim. Problems: Subjective 24 Hr Interval Summary Free Text/Dictation Abdominal pain well controlled. Tolerating oral intake. Passing gas. No bowel movements yet. Exam/Review of Systems Vital Signs Vitals Vital Signs Date Time Temp Pulse Resp B/P Pulse Ox O2 Delivery O2 Flow Rate FiO2 10/11/16 09:30 99.5 113 18 102/64 97 10/10/16 04:17 Room Air 10/09/16 20:48 2.0 Intake and Output 10/10/16 10/10/16 10/11/16 14:59 22:59 06:59 Intake Total 100 ml 820 ml Balance 100 ml 820 ml Exam General: Adequately build 45 year-old female lying in bed in no apparent distress. HEENT: Normocephalic, atraumatic. Eyes: Anicteric sclerae, conjunctivae clear. ENT: Nasal septum midline, oral mucosa moist. Neck supple, no JVD noticed. Respiratory: Bilaterally clear breath sounds. No use of accessory muscles of respiration. No adventitious breath sounds. Cardiovascular: S1, S2 heard. No murmurs or gallops. Abdomen: Soft and nondistended. Bowel sounds positive in all 4 quadrants. Laparoscopic incision sites clean, dry, and intact. Genitourinary: Deferred. Extremities: No cyanosis, no clubbing, no edema. Peripheral pulses palpable. Neurologic: Cranial nerves II through XII grossly intact. The patient is awake, alert, and oriented. Skin: Normal skin turgor. No skin rashes. Results Result Diagram: 10/11/16 0454 10/11/16 0454 Results 24 hrs Laboratory Tests Test 10/11/16 04:54 White Blood Count 17.0 #H Red Blood Count 2.66 #L Hemoglobin 8.2 #L Hematocrit 24.2 #L Mean Corpuscular Volume 91.0 Mean Corpuscular Hemoglobin 30.8 Mean Corpuscular Hemoglobin Concent 33.9 Red Cell Distribution Width 13.9 Platelet Count 189 # Mean Platelet Volume 11.0 H Neutrophils % 91.6 H Lymphocytes % 5.5 L Monocytes % 1.9 Eosinophils % 0.1 Basophils % 0.1 Nucleated Red Blood Cells % 0.0 Neutrophils # 15.6 H Lymphocytes # 0.9 Monocytes # 0.3 Eosinophils # 0.0 Basophils # 0.0 Nucleated Red Blood Cells # 0.0 Prothrombin Time 15.5 H Prothrombin Time Ratio 1.2 INR International Normalized Ratio 1.22 Activated Partial Thromboplast Time 34.7 Sodium Level 137 Potassium Level 3.7 Chloride Level 101 Carbon Dioxide Level 26 Anion Gap 14 Blood Urea Nitrogen 10 Creatinine 0.69 Glucose Level 105 Lactic Acid Level 0.9 Calcium Level 8.1 L Phosphorus Level 2.5 Magnesium Level 1.8 Total Bilirubin 0.2 Direct Bilirubin 0.00 Indirect Bilirubin 0.2 Aspartate Amino Transf (AST/SGOT) 30 Alanine Aminotransferase (ALT/SGPT) 33 Alkaline Phosphatase 51 B-Type Natriuretic Peptide 264 H Total Protein 5.6 L Albumin 2.7 L Globulin 2.90 Albumin/Globulin Ratio 0.93 Medications Medications Current Medications Ondansetron HCl (Zofran Inj) 4 mg Q6H PRN IV NAUSEA AND/OR VOMITING; Start at 19:30 Acetaminophen (Tylenol Tab) 650 mg Q6H PRN PO PAIN LEVEL 1-3 OR FEVER; Start at 19:30 Magnesium Hydroxide (Milk Of Mag) 30 ml DAILY PRN PO CONSTIPATION; Start at 19:30 Heparin Sodium (Porcine) (Heparin (5000 Units/0.5 ml)) 5,000 unit Q12 SC Last administered on 10/11/16 08:39; Admin Dose 5,000 UNIT; Start 10/09/16 at 21:00 ; Status Future hold Lorazepam (Ativan) 0.5 mg Q6H PRN IV ANXIETY; Start 10/09/16 at 19:30 Hydralazine HCl (Apresoline) 10 mg Q6H PRN IV ELEVATED BLOOD PRESSURE; Start at 19:30 Nitroglycerin (Nitroglycerin (Sl Tab) 0.4 Mg) 1 tab Q5M PRN SL ANGINA; Start at 19:30 Acetaminophen/ Hydrocodone Bitart ([place] (5/325)) 1 tab Q4H PRN PO PAIN LEVEL 4 -7; Start 10/09/16 at 20:00 Acetaminophen/ Hydrocodone Bitart ([place] (5/325)) 2 tab Q4H PRN PO PAIN LEVEL 7 -10 Last administered on 10/11/16 08:38; Admin Dose 2 TAB; Start 10/09/16 at 20 :00 Hydromorphone HCl (Dilaudid) 0.5 mg Q2H PRN IV PAIN; Start 10/09/16 at 20:00 Hydromorphone HCl (Dilaudid) 1 mg Q2H PRN IV PAIN Last administered on 06:12; Admin Dose 1 MG; Start 10/09/16 at 20:00 Docusate Sodium (Colace) 100 mg BID PRN PO CONSTIPATION; Start 10/09/16 at 20: 00 Bisacodyl (Dulcolax Supp) 10 mg BID PRN [place] CONSTIPATION; Start 10/09/16 at 20: 00 Sodium Biphosphate/ Sodium Phosphate 133 ml 133 ml BID PRN [place] CONSTIPATION; Start 10/09/16 at 20:00 Piperacillin Sod/ Tazobactam Sod (Zosyn 3.375gm/ 100 ml (Pmx)) 100 ml @ 200 mls /hr Q6 IVPB Last administered on 10/11/16 12:48; Admin Dose 200 MLS/HR; Start 10/10/16 at 16:00 EMILY MALONE NP Oct 11, 2016 13:55
--- NOTE | 2016-10-11 14:12 | PN ---
Date/Time of Note Date/Time of Note DATE: 10/11/16 TIME: 14:08 Assessment/Plan Lines/Catheters IV Catheter Type (from Nrs): Saline Lock Correa in Place (from Nrs): No Assessment/Plan Assessment/Plan [facility] Progress Note Date of Service: 10/11/2016 Place of service: [facility] fourth floor Today's Assessment & Plan: Overall stable and doing well. No evidence for obvious postoperative complications or surgical site infections. No indication for acute surgical intervention. Ok from my standpoint for patient do d/c home if ok medically. With above assessment, I've recommended the following for today: 1. D/c home when medically stable 2. Discharge instructions: "Please call [phone] if any of fever, nausea, vomiting, discharge from wound, wound redness, increase or sudden pain, blood in stool or vomit, or any other unusual signs or symptoms. Also, please call the same number in a few days to schedule an appointment for your follow up visit. Patient may remove dressings tomorrow. Showers OK starting tomorrow. No swimming , hot tub or bath for 2 weeks. No lifting more than 25 lbs for 8 weeks." Thank you again for your great care of this very pleasant patient and wonderful family. If there are any questions, please feel free to call me at [phone]. Nature of presenting problem: High severity Please note that, given the multiple number of diagnoses or management options, the moderate amount and/or complexity of data needed to be reviewed, and I risk of complications and/or morbidity or mortality, this qualifies as moderate to high complexity type of decision-making. Disclaimer: Inadvertent spelling and grammatical errors are likely due to EHR/ dictation software use and do not reflect on the quality of delivered patient care. Also, please note that the electronic time recorded on this node does not necessarily reflect the actual time of the visit. Updated clinical summary: Patient is a very-pleasant and otherwise healthy 45-year-old lady without significant known comorbidities her past history, presenting to the emergency department at [facility] for signs and symptoms consistent with acute appendicitis as demonstrated by her history and physical, elevated white blood cell count to [address] scan findings possibly pointing to localized perforation of appendix with no drainable abscess. This is despite her relatively otherwise normal-appearing laboratory values. Status post an otherwise uncomplicated laparoscopic appendectomy was performed with findings of likely sealed perforation of appendix with presence of pus in the abdominal cavity at [facility] on 10/09/2016. Comorbidities: 1. Acute appendicitis with likely sealed perforation and presence of intra- abdominal pus. Status post an otherwise uncomplicated laparoscopic appendectomy was performed with findings of likely sealed perforation of appendix with presence of pus in the abdominal cavity at [facility] on 2016. 2. Hysterectomy for fibroids at [place] 2017 Subjective: No major events or complaints; no major abd pain and under control with medications; no n/v/d; no sob or cp; + flatus; - BM; + activity Objective: Vitals: See below I's & O's: See below Exam: GENERAL: On exam, the patient was lying in bed and appeared to be comfortable and in no acute distress. ABDOMEN: Soft, nontender and nondistended. Incision dressings DC'd and incisions are clean, dry and intact without any evidence of obvious erythema, edema, discharge, or hernia. There are no peritoneal signs or guarding. SKIN: Skin appears to be pink and feels warm to touch. NEUROLOGIC: Patient is awake, alert, and follows commands appropriately. Labs: See below Exam/Review of Systems Vital Signs Vitals Vital Signs Date Time Temp Pulse Resp B/P Pulse Ox O2 Delivery O2 Flow Rate FiO2 10/11/16 09:30 99.5 113 18 102/64 97 10/10/16 04:17 Room Air 10/09/16 20:48 2.0 Intake and Output 10/10/16 10/10/16 10/11/16 15:00 23:00 07:00 Intake Total 100 ml 820 ml Balance 100 ml 820 ml Results Result Diagram: 10/11/16 0454 10/11/16 0454 VIDAL ARROYO M.D. Oct 11, 2016 14:12
[2016-10-11 16:06] VITALS: BP 139/71; PULSE 125; RESP 20
[2016-10-11 17:19] VITALS: BP 121/72; PULSE 134; RESP 20
[2016-10-11 18:55] VITALS: BP 109/72; PULSE 118; RESP 20
[2016-10-11 19:32] VITALS: BP 107/57; RESP 18
[2016-10-11] MEDS: FAMOTIDINE 20 MG TAB PO SCH (20:22)
[2016-10-12 05:06] LABS: BASOPHILS % 0.2 % (0.0-2.0); EOSINOPHILS % 0.3 % (0.0-7.0); HEMATOCRIT 25.5 % (37.0-47.0); HEMOGLOBIN 8.6 g/dl (12.0-16.0); LYMPHOCYTES # 0.7 10^3/ul (0.8-2.9); LYMPHOCYTES % 7.4 % (15.0-51.0); MEAN CORPUSCULAR HEMOGLOBIN 30.6 pg (29.0-33.0); MEAN CORPUSCULAR HGB CONC 33.7 g/dl (32.0-37.0); MEAN CORPUSCULAR VOLUME 90.7 fl (82.0-101.0); MEAN PLATELET VOLUME 10.8 fl (7.4-10.4); MONOCYTE # 0.4 10^3/ul (0.3-0.9); MONOCYTES % 3.7 % (0.0-11.0); NEUTROPHIL # 8.7 10^3/ul (1.6-7.5); NEUTROPHILS % 87.6 % (39.0-77.0); PLATELET COUNT 215 10^3/UL (140-415); RED BLOOD COUNT 2.81 10^6/ul (4.20-5.40); RED CELL DISTRIBUTION WIDTH 13.9 % (11.5-14.5); WHITE BLOOD COUNT 9.9 10^3/ul (4.8-10.8)
[2016-10-12 05:37] LABS: CALCIUM 8.1 mg/dl (8.4-10.2); CREATININE 0.63 mg/dl (0.44-1.00); POTASSIUM 3.6 mmol/L (3.5-5.1)
[2016-10-12 05:46] LABS: CHOL/HDL RATIO 3.5 RATIO; MAGNESIUM 1.9 mg/dl (1.7-2.5); PHOSPHORUS 2.5 mg/dl (2.5-4.9)
[2016-10-12] MEDS: HYDROCODONE/APAP (5/325) TAB PO PRN ×2 (06:34→13:01)
[2016-10-12] MEDS: PIPER-TAZO 3.375 GM IV (PMX) 100 ML IVPB SCH ×3 (06:35→12:53)
[2016-10-12 08:37] VITALS: BP 117/73; RESP 18
--- NOTE | 2016-10-12 09:04 | PDOCDIS ---
Discharge Instructions DIAGNOSIS Discharge Diagnosis Acute appendicitis. Status post laparoscopic appendectomy. CONDITION Patient Condition: Stable HOME CARE INSTRUCTIONS: Diet Instructions: Regular ACTIVITY: Activity Restrictions: Slowly Increase Activity Rest between Activity Avoid heavy lifting Bathing Restrictions: Shower FOLLOW UP/APPOINTMENTS Follow-up Plan Shahriar Viera MD Specialty General Surgery Office Address [id number] [place] [phone] Office OTHER ORDERS: Other Orders: 1. Regular diet as tolerated. 2. Keep incisions clean and dry. May shower. Avoid tub baths and swimming for 2 weeks. Use mild soap and pat dry the incisions. 3. Take medications as needed for pain. 4. Call the surgeon or go to the nearest ER if you have severe abdominal pain despite pain medications. 5. Call the surgeon or go to the nearest ER if you notice any bleeding or secretions coming out of the incision sites. Also call the surgeon if you notice any blood in stool, if you have persistent fevers, or any other unusual signs or symptoms. 6. Follow-up with the surgeon Dr. Viera in 7 days for incision check. 7. Avoid heavy lifting [more than 25 pounds] for 8 weeks. SCHOOL/WORK RELEASE May return to School/Work on: Oct 18, 2016 May return to School/Work with: With Restrictions (No lifting weights heavier than 25 pounds for 8 weeks) EMILY MALONE NP Oct 12, 2016 09:04
[2016-10-12] MEDS: FAMOTIDINE 20 MG TAB PO SCH (09:05)
[2016-10-12] MEDS ORDERED: HYDR-3498 PO (09:06)
[2016-10-12] MEDS ORDERED: AMOX1TAB10 PO (09:06)
--- NOTE | 2016-10-12 09:10 | DS ---
Date/Time of Note Date/Time of Note DATE: 10/12/16 TIME: 09:09 Discharge Summary Admission/Discharge Info Admit Date/Time Oct 09, 2016 at 18:11 Discharge Date/Time Discharge Diagnosis 1. Acute appendicitis with possible sealed perforation and intra-abdominal process. Status post laparoscopic appendectomy. 2. Urinary retention. Resolved. 3. Normocytic, normochromic anemia. Patient Condition: Stable Consults 1. Shahriar Viera MD, General Surgery. Procedures DATE OF SURGERY: 10/09/2016 PREOPERATIVE DIAGNOSIS: 1. Acute appendicitis with possible perforation 2. Hysterectomy for fibroids at [place] [address] POSTOPERATIVE DIAGNOSIS: 1. Acute appendicitis with likely sealed perforation and presence of intra- abdominal pus 2. Hysterectomy for fibroids at [place] [address] OPERATION: 1. Laparoscopic appendectomy CT Scan of the Abdomen and Pelvis IMPRESSION: 1. Evidence of acute appendicitis with findings of microperforation at the tip noting small foci of extraluminal air. No drainable fluid collection is identified. 2. Reactive mesenteric lymphadenopathy. 3. Multiple, benign-appearing sclerotic foci presumably bone islands. No further follow-up is necessary unless there are focal symptoms in this region or if there is history of malignancy. In this is the case a non emergent MRI of the pelvis may be obtained for further assessment. Hx of Present Illness This is a 45-year-old female with a history of uterine fibroid status post total abdominal hysterectomy several months ago who presented to the emergency department with 2 days history of right-sided abdominal pain and vomiting. CT abdomen/pelvis showed acute appendicitis with microperforation. She had WBC of almost 21,000. She was taken to the OR and she is now status post laparoscopic appendectomy. Postop diagnosis is Acute appendicitis with likely sealed perforation and presence of intra-abdominal pus. . Hospital Course Status post appendectomy, the patient was started on a clear liquid diet and the patient's diet was advanced as tolerated to regular consistency diet without any significant gastrointestinal symptoms. The patient had some underlying urinary retention status post laparoscopic appendectomy. This resolved on its own. This could have been most probably secondary to the effects of anesthesia. As per the operating report, the patient has an acute appendicitis with likely sealed perforation and there was presence of intra- abdominal abscess. Consequently, the patient was maintained on IV antibiotics including coverage for anaerobes. The patient continued to have some fevers. The patient continued to have leukocytosis. The patient's leukocytosis has resolved. Patient has remained fever free for at least 12 hours. The patient was cleared by surgery to be discharged home on oral antibiotics. Patient was also noticed to have normocytic, normochromic anemia. The patient' s H&H remained stable. The patient had a stable, but prolonged hospital course because of the presence of persistent leukocytosis and fevers. Discharge Instructions 1. Regular diet as tolerated. 2. Keep incisions clean and dry. May shower. Avoid tub baths and swimming for 2 weeks. Use mild soap and pat dry the incisions. 3. Take medications as needed for pain. 4. Call the surgeon or go to the nearest ER if you have severe abdominal pain despite pain medications. 5. Call the surgeon or go to the nearest ER if you notice any bleeding or secretions coming out of the incision sites. Also call the surgeon if you notice any blood in stool, if you have persistent fevers, or any other unusual signs or symptoms. 6. Follow-up with the surgeon Dr. Viera in 7 days for incision check. 7. Avoid heavy lifting [more than 25 pounds] for 8 weeks. The patient verbalized understanding of her discharge instructions Case discussed with Dr. Tim. Home Meds Active Scripts Famotidine* (Pepcid*) 20 Mg Tablet, 20 MG PO BID for 10 Days, #20 TAB Prov:EMILY MALONE NP 10/12/16 Docusate Sodium* (Colace*) 100 Mg Capsule, 100 MG PO BID for 10 Days, #20 CAP Prov:EMILY MALONE NP 10/12/16 Amoxicillin/Potassium Clav (Amox-Clav 875-125 mg Tablet) 875-125 mg Tab, 1 TAB PO BID for 7 Days, #14 TAB Prov:EMILY MALONE NP 10/12/16 Hydrocodone Bit-Acetaminophen (Hydrocodone Bit-APAP) 5-325MG Tablet, 1 TAB PO Q4H Y for PAIN LEVEL 4-7, #20 TAB Prov:EMILY MALONE NP 10/12/16 Follow-up Plan Follow-up with Dr. Viera in 1 week. Primary Care Provider Care Physician No Primary Time spent on discharge: > 30 minutes Pending Labs Laboratory Tests Test 10/12/16 04:38 White Blood Count 9.910^3/ul (4.8-10.8) Red Blood Count 2.8110^6/ul (4.20-5.40) Hemoglobin 8.6g/dl (12.0-16.0) Hematocrit 25.5% (37.0-47.0) Mean Corpuscular Volume 90.7fl (82.0-101.0) Mean Corpuscular Hemoglobin 30.6pg (29.0-33.0) Mean Corpuscular Hemoglobin Concent 33.7g/dl (32.0-37.0) Red Cell Distribution Width 13.9% (11.5-14.5) Platelet Count 61820^3/UL (140-415) Mean Platelet Volume 10.8fl (7.4-10.4) Neutrophils % 87.6% (39.0-77.0) Lymphocytes % 7.4% (15.0-51.0) Monocytes % 3.7% (0.0-11.0) Eosinophils % 0.3% (0.0-7.0) Basophils % 0.2% (0.0-2.0) Nucleated Red Blood Cells % 0.0/100WBC (0.0-0.0) Neutrophils # 8.710^3/ul (1.6-7.5) Lymphocytes # 0.710^3/ul (0.8-2.9) Monocytes # 0.410^3/ul (0.3-0.9) Eosinophils # 0.010^3/ul (0.0-0.5) Basophils # 0.010^3/ul (0.0-0.1) Nucleated Red Blood Cells # 0.010^3/ul (0.0-0.0) Sodium Level 139mmol/L (135-144) Potassium Level 3.6mmol/L (3.5-5.1) Chloride Level 101mmol/L (97-110) Carbon Dioxide Level 27mmol/L (21-31) Anion Gap 15 (8-16) Blood Urea Nitrogen 5mg/dl (7-20) Creatinine 0.63mg/dl (0.44-1.00) Glucose Level 104mg/dl (70-220) Hemoglobin A1c 5.1% (0-5.9) Calcium Level 8.1mg/dl (8.4-10.2) Phosphorus Level 2.5mg/dl (2.5-4.9) Magnesium Level 1.9mg/dl (1.7-2.5) Triglycerides Level 102mg/dl (0-149) Cholesterol Level 107mg/dl (100-200) LDL Cholesterol, Calculated 57mg/dl HDL Cholesterol 30mg/dl (34-88) Cholesterol/HDL Ratio 3.5EMILY SU NP Oct 12, 2016 09:10
[2016-10-12] MEDS: HEPARIN 5,000 UNIT/0.5 ML VIAL SC SCH (09:12)
--- NOTE | 2016-10-12 10:45 | PN ---
Date/Time of Note Date/Time of Note DATE: 10/12/16 TIME: 10:43 Assessment/Plan Lines/Catheters IV Catheter Type (from Nrs): Peripheral IV Corera in Place (from Nrs): No Assessment/Plan Assessment/Plan [facility] Progress Note Date of Service: 10/12/2016 Place of service: [facility] fourth floor Today's Assessment & Plan: Overall stable and doing well. No evidence for obvious postoperative complications or surgical site infections. No indication for acute surgical intervention. WBC normalized. Some epigastric discomfort, likely from stress of the clinical picture and temporary. Can benefit from short course home antacid therapy and follow with primary care physician. Ok from my standpoint for patient do d/c home if ok medically. With above assessment, I've recommended the following for today: 1. D/c home when medically stable 2. Discharge instructions: "Please call [phone] if any of fever, nausea, vomiting, discharge from wound, wound redness, increase or sudden pain, blood in stool or vomit, or any other unusual signs or symptoms. Also, please call the same number in a few days to schedule an appointment for your follow up visit. Patient may remove dressings tomorrow. Showers OK starting tomorrow. No swimming , hot tub or bath for 2 weeks. No lifting more than 25 lbs for 8 weeks." Thank you again for your great care of this very pleasant patient and wonderful family. If there are any questions, please feel free to call me at [phone]. Nature of presenting problem: High severity Please note that, given the multiple number of diagnoses or management options, the moderate amount and/or complexity of data needed to be reviewed, and I risk of complications and/or morbidity or mortality, this qualifies as moderate to high complexity type of decision-making. Disclaimer: Inadvertent spelling and grammatical errors are likely due to EHR/ dictation software use and do not reflect on the quality of delivered patient care. Also, please note that the electronic time recorded on this node does not necessarily reflect the actual time of the visit. Updated clinical summary: Patient is a very-pleasant and otherwise healthy 45-year-old lady without significant known comorbidities her past history, presenting to the emergency department at [facility] for signs and symptoms consistent with acute appendicitis as demonstrated by her history and physical, elevated white blood cell count to [address] scan findings possibly pointing to localized perforation of appendix with no drainable abscess. This is despite her relatively otherwise normal-appearing laboratory values. Status post an otherwise uncomplicated laparoscopic appendectomy was performed with findings of likely sealed perforation of appendix with presence of pus in the abdominal cavity at [facility] on 10/09/2016. Comorbidities: 1. Acute appendicitis with likely sealed perforation and presence of intra- abdominal pus. Status post an otherwise uncomplicated laparoscopic appendectomy was performed with findings of likely sealed perforation of appendix with presence of pus in the abdominal cavity at [facility] on 2016. 2. Hysterectomy for fibroids at [place] [address] Subjective: No major events or complaints; no major abd pain and under control with medications; no n/v/d; no sob or cp; + flatus; + BM; + activity Objective: Vitals: See below I's & O's: See below Exam: GENERAL: On exam, the patient was lying in bed and appeared to be comfortable and in no acute distress. ABDOMEN: Soft, nontender and nondistended. Incisions are clean, dry and intact without any evidence of obvious erythema, edema, discharge, or hernia. There are no peritoneal signs or guarding. SKIN: Skin appears to be pink and feels warm to touch. NEUROLOGIC: Patient is awake, alert, and follows commands appropriately. Labs: See below Exam/Review of Systems Vital Signs Vitals Vital Signs Date Time Temp Pulse Resp B/P Pulse Ox O2 Delivery O2 Flow Rate FiO2 10/12/16 08:37 98.3 107 18 117/73 96 10/12/16 04:50 21 10/11/16 18:55 Room Air 10/09/16 20:48 2.0 Intake and Output 10/11/16 10/11/16 10/12/16 15:00 23:00 07:00 Intake Total 1560 ml 500 ml Balance 1560 ml 500 ml Results Result Diagram: 10/12/16 0438 10/12/16 0438 VIDAL ARROYO M.D. Oct 12, 2016 10:45
[2016-10-12] MEDS ORDERED: FAMO-96 PO (10:51)
[2016-10-12] MEDS ORDERED: DOCU-144 PO (10:51)
[2016-10-12 16:14] VITALS: BP 112/67; RESP 18
== END 2016-10-12 17:00 | disposition home or self-care (01) | DRG 339 ==
LOC: E/R 15:42 → MS1 18:07 → SDS 18:10 → MS1 18:10
PROVIDERS: ADMIT Internal Medicine; ATTEND Internal Medicine
PROC: 0DTJ4ZZ Resection of Appendix, Percutaneous Endoscopic Approach (ICD-10-PCS; principal; 2016-10-09 19:00)
DX: K35.3 Acute appendicitis with localized peritonitis (principal); E87.2 Acidosis; D64.9 Anemia, unspecified; R33.9 Retention of urine, unspecified; R59.1 Generalized enlarged lymph nodes; Z90.710 Acquired absence of both cervix and uterus
CPT/HCPCS: 36415; 74176; 80048; 80053; 80061; 81001; 83036; 83605; 83690; 83735; 83880; 84100; 84439; 84443; 85025; 85610; 85730; 88304; 96374; 96375; A4310; J0690; J1100; J1170; J1644; J1885; J2250; J2270; J2370; J2405; J2543; J2710; J3010; J3480; J7030; J7040

== ENCOUNTER 2016-10-17 10:46 | Inpatient (IN) | payer MEDICAID ==
[~2016-10-17] VITALS: Ht 157.5 cm; Wt 61.0 kg
[~2016-10-17 10:46] MED LIST: AMOX1TAB10 PO; DOCU-144 PO; FAMO-96 PO; HYDR-3498 PO
[2016-10-17] MEDS ORDERED: SOD CHLORIDE 0.9% 1,000 ML IV STA (11:05)
[2016-10-17] MEDS ORDERED: ONDANSETRON 4 MG INJ IV STA ×2 (11:05→11:56)
[2016-10-17] MEDS ORDERED: morphine 4 MG/ML VIAL IV STA (11:05)
[2016-10-17 11:53] LABS: BASOPHILS % 0.2 % (0.0-2.0); EOSINOPHILS # 0.1 10^3/ul (0.0-0.5); EOSINOPHILS % 0.5 % (0.0-7.0); HEMATOCRIT 28.4 % (37.0-47.0); HEMOGLOBIN 9.6 g/dl (12.0-16.0); LYMPHOCYTES # 1.1 10^3/ul (0.8-2.9); LYMPHOCYTES % 5.6 % (15.0-51.0); MEAN CORPUSCULAR HEMOGLOBIN 29.7 pg (29.0-33.0); MEAN CORPUSCULAR HGB CONC 33.8 g/dl (32.0-37.0); MEAN CORPUSCULAR VOLUME 87.9 fl (82.0-101.0); MONOCYTE # 0.8 10^3/ul (0.3-0.9); MONOCYTES % 3.8 % (0.0-11.0); NEUTROPHIL # 17.1 10^3/ul (1.6-7.5); NEUTROPHILS % 84.9 % (39.0-77.0); NUCLEATED RED BLOOD CELLS # 0.1 10^3/ul (0.0-0.0); NUCLEATED RED BLOOD CELLS% 0.5 /100WBC (0.0-0.0); PLATELET COUNT 543 10^3/UL (140-415); RED BLOOD COUNT 3.23 10^6/ul (4.20-5.40); RED CELL DISTRIBUTION WIDTH 13.8 % (11.5-14.5); WHITE BLOOD COUNT 20.1 10^3/ul (4.8-10.8)
[2016-10-17] MEDS ORDERED: HYDROmorphONE 1 MG/ML SYG IV STA (11:56)
[2016-10-17 12:10] LABS: ALANINE AMINOTRANSFERASE 64 IU/L (13-69); ALBUMIN 3.5 g/dl (3.3-4.9); ALBUMIN/GLOBULIN RATIO 0.92; ALKALINE PHOSPHATASE 242 IU/L (42-121); AMYLASE 116 U/L (11-123); ANION GAP 15 (8-16); ASPARTATE AMINO TRANSFERASE 45 IU/L (15-46); BILIRUBIN,INDIRECT 0.7 mg/dl (0-1.1); BILIRUBIN,TOTAL 0.7 mg/dl (0.2-1.3); BLOOD UREA NITROGEN 13 mg/dl (7-20); CALCIUM 8.6 mg/dl (8.4-10.2); CARBON DIOXIDE 29 mmol/L (21-31); CHLORIDE 97 mmol/L (97-110); CREATININE 0.64 mg/dl (0.44-1.00); GLUCOSE 110 mg/dl (70-220); POTASSIUM 3.6 mmol/L (3.5-5.1); SODIUM 137 mmol/L (135-144); TOTAL PROTEIN 7.3 g/dl (6.1-8.1)
[2016-10-17 12:17] LABS: INR 1.1; PROTIME 14.2 Sec (12.2-14.2); PT RATIO 1.1
[2016-10-17 12:22] LABS: TROPONIN-I < 0.012 ng/ml (0.00-0.12)
[2016-10-17] MEDS ORDERED: IOHEXOL 300MG/ML 30 ML BTL ONE (12:44)
[2016-10-17] MEDS ORDERED: SOD CHLORIDE 0.9% 100 ML ONE (12:44)
--- NOTE | 2016-10-17 13:17 | RADRPT ---
PROCEDURE: CT abdomen and pelvis with intravenous contrast. CLINICAL INDICATION: Abdominal pain. Recent appendectomy. TECHNIQUE: Following intravenous contrast, spiral CT of the abdomen pelvis was performed and is re constructed at 2.5 mm contiguous axial intervals from the dome of the diaphragm to the inferior pubi c rami. Computer reformatted coronal and sagittal images are included. CT D I 11 millicurie Dose 615 millicurie per centimeter COMPARISON: Preoperative CT abdomen pelvis October 09 FINDINGS: There is plate-like atelectasis at the lung bases. Small left pleural effusion is present. No alve olar infiltrate is seen and there is no pneumothorax. The liver is of normal size, contour and attenuation with no mass or intrahepatic ductal dilatation. No gallstones are present. No splenic, adrenal or pancreatic abnormalities present. Kidneys excrete contrast symmetrically. No hydronephrosis, calculus or masses present. Ureters are of normal course and caliber with no stone. No bladder mass or stone is present. No adnexal masses present. No bowel mass or obstruction is seen. The patient is post appendectomy. There are multiple abscesses now present within the peritoneal ca vity, the largest of which extends from the right lower quadrant into the right pelvis lateral to th e fundus of the bladder. This collection measures approximately 10 cm in maximum transverse diamete r. A second 8 cm collection is seen in the left ankur pelvis. There is scattered smaller collection s throughout the abdomen and pelvis. A 4 cm collection is seen along the inferomedial aspect of the right lobe of the liver. No pneumoperitoneum is present. There is phlegmonous infiltration of the fat throughout the abdomen. No aneurysm is detected. There is no adenopathy. The osseous structures are intact. IMPRESSION: Multiple abdominal and pelvic abscesses in patient status post recent appendectomy. Bibasilar atelectasis with small left pleural effusion. .Nikos Gastelum MD, MD Date Time Electronically viewed and signed by .Nikos Gastelum MD, on 10/17/2016 13:17 .A/
[2016-10-17] MEDS ORDERED: PIPER-TAZO 3.375 GM IV (PMX) 100 ML IVPB STA (13:35)
--- NOTE | 2016-10-17 13:44 | ERA ---
ER Documentation Chief Complaint Date/Time DATE: 10/17/16 TIME: 13:42 Chief Complaint DC LAST TUESDAY S/P APPE STILL AP, NOT CONSTIPATED HPI This is a very pleasant 45-year-old female with past surgical history that includes hysterectomy secondary to fibroids at [facility] in 2017 and a laparoscopic appendectomy performed at [facility] [address] Viera. The patient indicates that she has been taking [place] for analgesic control. She ran out of her [place] yesterday and since that time states that she has been having severe abdominal discomfort. She states the pain is 10 out of 10 in intensity. She has had a bowel movement and has not experienced any constipation or diarrhea and is passing gas. She denies any fever shaking or chills. She has no shortness of breath at rest or exertion. She has had a decrease in appetite due to the pain. She indicates that the pain is worse with movement and touch. ROS All systems reviewed and are negative except as per history of present illness. Medications Home Meds Active Scripts Famotidine* (Pepcid*) 20 Mg Tablet, 20 MG PO BID for 10 Days, #20 TAB Prov:EMILY MALONE NP 10/12/16 Docusate Sodium* (Colace*) 100 Mg Capsule, 100 MG PO BID for 10 Days, #20 CAP Prov:EMILY MALONE NP 10/12/16 Amoxicillin/Potassium Clav (Amox-Clav 875-125 mg Tablet) 875-125 mg Tab, 1 TAB PO BID for 7 Days, #14 TAB Prov:EMILY MALONE NP 10/12/16 Discontinued Scripts Hydrocodone Bit-Acetaminophen (Hydrocodone Bit-APAP) 5-325MG Tablet, 1 TAB PO Q4H Y for PAIN LEVEL 4-7, #20 TAB Prov:EMILY MALONE NP 10/12/16 Allergies Allergies: Coded Allergies: No Known Allergy (Unverified , 10/17/16) PMhx/Soc History of Surgery: Yes (total hysterectomy 10 mo ago, appendectomy) Anesthesia Reaction: No Hx Neurological Disorder: No Hx Respiratory Disorders: No Hx Cardiac Disorders: No Hx Psychiatric Problems: No Hx Miscellaneous Medical Probl: No Hx Alcohol Use: No Hx Substance Use: No Hx Tobacco Use: No Smoking Status: Never smoker Physical Exam Vitals Vital Signs Date Time Temp Pulse Resp B/P Pulse Ox O2 Delivery O2 Flow Rate FiO2 10/17/16 10:51 98.1 116 20 113/67 99 Physical Exam Constitutional:Well-developed. Well-nourished. Nontoxic in appearance but appeared to be in a significant amount discomfort secondary to pain HEENT:Normocephalic. Atraumatic.Pupils were equal round reactive to light. Moist mucous membranes.No tonsillar exudates. Neck: No nuchal rigidity. No lymphadenopathy. No posterior cervical spine tenderness or step-offs. Respiratory: Not using accessory muscles of respiration.Lungs were clear to auscultation bilaterally. No rhonchi. No rales. No wheezing. Cardiovascular: Regular rate regular rhythm.No murmurs. No rubs were appreciated.S1, S2 normal. Distal pulses are palpable 2+ bilaterally. GI: Abdomen was soft. Tenderness in the right lower quadrant. No ecchymosis of the abdomen and laparoscopic scars are present from previous appendectomy with no surrounding erythema warmth or tenderness. Non Distended. No pulsatile abdominal masses or bruits. No rebound. No guarding. Bowel sounds were present and normal. Muscle skeletal: Full range of motion of both the upper and lower extremities bilaterally.Normal muscle tone.No assymetrical calf tenderness or swelling. Skin: No petechia, no purpura. No lesions on the palms or the soles of the feet. No maculopapular rash. NEURO: Patient was alert, awake, orientated x3.No facial droop. Gait observed and normal with no ataxia.Speech had regular rate and rhythm. No focal neurological deficits. Result Diagram: 10/17/16 1120 10/17/16 1120 Results 24 hrs Laboratory Tests Test 10/17/16 11:20 White Blood Count 20.110^3/ul Red Blood Count 3.2310^6/ul Hemoglobin 9.6g/dl Hematocrit 28.4% Mean Corpuscular Volume 87.9fl Mean Corpuscular Hemoglobin 29.7pg Mean Corpuscular Hemoglobin Concent 33.8g/dl Red Cell Distribution Width 13.8% Platelet Count 31502^3/UL Mean Platelet Volume 10.0fl Neutrophils % 84.9% Lymphocytes % 5.6% Monocytes % 3.8% Eosinophils % 0.5% Basophils % 0.2% Nucleated Red Blood Cells % 0.5/100WBC Neutrophils # 17.110^3/ul Lymphocytes # 1.110^3/ul Monocytes # 0.810^3/ul Eosinophils # 0.110^3/ul Basophils # 0.010^3/ul Nucleated Red Blood Cells # 0.110^3/ul Prothrombin Time 14.2Sec Prothrombin Time Ratio 1.1 INR International Normalized Ratio 1.10 Activated Partial Thromboplast Time 39.0Sec Sodium Level 137mmol/L Potassium Level 3.6mmol/L Chloride Level 97mmol/L Carbon Dioxide Level 29mmol/L Anion Gap 15 Blood Urea Nitrogen 13mg/dl Creatinine 0.64mg/dl Glucose Level 110mg/dl Calcium Level 8.6mg/dl Total Bilirubin 0.7mg/dl Direct Bilirubin 0.00mg/dl Indirect Bilirubin 0.7mg/dl Aspartate Amino Transf (AST/SGOT) 45IU/L Alanine Aminotransferase (ALT/SGPT) 64IU/L Alkaline Phosphatase 242IU/L Troponin I < 0.012ng/ml Total Protein 7.3g/dl Albumin 3.5g/dl Globulin 3.80g/dl Albumin/Globulin Ratio 0.92 Amylase Level 116U/L Current Medications Medications (Trade) Dose Ordered Sig/Kofi Route PRN Reason Start Time Stop Time Status Last Admin Dose Admin Sodium Chloride (NS) 1,000 ml @ 1,000 mls/hr Q1H STAT IV 10/17/16 11:05 10/17/16 12:04 DC 10/17/16 11:15 Morphine Sulfate (morphine) 4 mg ONCE STAT IV 10/17/16 11:05 10/17/16 11:07 DC 10/17/16 11:15 Ondansetron HCl (Zofran Inj) 4 mg ONCE STAT IV 10/17/16 11:05 10/17/16 11:07 DC 10/17/16 11:15 Hydromorphone HCl (Dilaudid) 0.5 mg ONCE STAT IV 10/17/16 11:56 10/17/16 11:58 DC 10/17/16 12:09 Ondansetron HCl (Zofran Inj) 4 mg ONCE STAT IV 10/17/16 11:56 10/17/16 11:58 DC 10/17/16 12:09 IV Flush 10 ml 10 ml STK-MED ONCE .ROUTE 10/17/16 12:44 10/17/16 12:45 DC Sodium Chloride (NS) 100 ml @ ud STK-MED ONCE .ROUTE 10/17/16 12:44 10/17/16 12:45 DC Iohexol 30 ml 30 ml STK-MED ONCE .ROUTE 10/17/16 12:44 10/17/16 12:45 DC Vancomycin HCl 250 ml @ 125 mls/hr ONCE ONCE IVPB 10/17/16 14:00 10/17/16 15:59 Cancel Piperacillin Sod/ Tazobactam Sod (Zosyn 3.375gm/ 100 ml (Pmx)) 100 ml @ 200 mls/hr ONCE STAT IVPB 10/17/16 13:35 10/17/16 14:04 Ondansetron HCl (Zofran Inj) 4 mg BRIDGE ORDER PRN IV NAUSEA AND/OR VOMITING 10/17/16 14:00 10/18/16 13:59 Acetaminophen (Tylenol Tab) 650 mg ER BRIDGE PRN PO MILD PAIN/FEVER 10/17/16 14:00 10/18/16 13:59 Procedures/MDM This patient presented to the emergency department with abdominal pain and was seen and evaluated by myself. My differential diagnosis included but was not limited to abdominal aortic aneurysm, appendicitis, pancreatitis, perforated peptic ulcer, perforated viscus, Boerhaaves syndrome or visceral pain such as diverticulitis, DKA, esophagitis, hepatitis or bowel obstruction. The patient was placed on a interior decorator painting, continuous pulse oximetry, and IV access was established by nursing staff. Patient received intravenous morphine and Zofran for analgesic control 12 Lead EKG tracing ordered and reviewed by myself showed: Normal sinus rhythm of 92 bpm and no arrhythmia. TX interval normal. QRS duration normal. No ST segment elevation No ST segment depression. No changes consistent with acute ischemia. I obtained a CT scan of the abdomen with IV contrast reviewed by the radiologist myself and indicated the following: Multiple abdominal and pelvic abscesses in patient status post recent appendectomy. Bibasilar atelectasis with small left pleural effusion. There is no pneumoperitoneum. I spoke with Dr. Viera who kindly stated he will evaluate the patient. Blood cultures were obtained and the patient was started on IV Zosyn. The patient will be admitted to the hospitalist Dr. Rodriguez in serious condition with an anticipated stay of greater than 2 midnights and the patient did require further analgesic medication for her pain. Departure Diagnosis: Primary Impression: Post-operative pain Additional Impression: Postoperative intra-abdominal abscess Qualified Code: T81.4XXA - Postoperative intra-abdominal abscess, initial encounter Condition: Serious TRACIE DAWSON Oct 17, 2016 13:44
[2016-10-17] MEDS ORDERED: VANCOMYCIN 1 GM (PMX) 250 ML IVPB ONE (14:00)
[2016-10-17] MEDS ORDERED: ONDANSETRON 4 MG INJ IV PRN (14:00)
[2016-10-17] MEDS ORDERED: ACETAMINOPHEN 325 MG TAB PO PRN (14:00)
[2016-10-17 14:12] LABS: ADD UMIC YES; UR ASCORBIC ACID NEGATIVE (NEGATIVE); UR BILIRUBIN (Dip) NEGATIVE (NEGATIVE); UR BLOOD (Dip) 2+ mg/dL (NEGATIVE); UR CLARITY CLEAR (CLEAR); UR COLOR YELLOW (YELLOW); UR GLUCOSE (Dip) NEGATIVE (NEGATIVE); UR KETONES (Dip) TRACE mg/dL (NEGATIVE); UR LEUKOCYTE ESTERASE (Dip) NEGATIVE Leu/ul (NEGATIVE); UR NITRITE (Dip) NEGATIVE (NEGATIVE); UR RBC 1 /HPF (0-5); UR TOTAL PROTEIN (Dip) NEGATIVE (NEGATIVE); UR UROBILINOGEN (Dip) NEGATIVE (NEGATIVE)
[2016-10-17 15:23] VITALS: BP 116/62; RESP 18
[2016-10-17 15:50] VITALS: Ht 157.5 cm; Wt 61.0 kg
--- NOTE | 2016-10-17 16:34 | HP ---
Date/Time of Note Date/Time of Note DATE: 10/17/16 TIME: 16:19 Assessment/Plan VTE Prophylaxis VTE Prophylaxis Intervention: SCD's Assessment/Plan Chief Complaint/Hosp Course 45 yo female with h/o c section and recent perforated appendicitis s/p appendectomy and washout presneting with recurrence of intrabdominal abscesses Intrabdominal abscesses: - IV zosyn - Dr Viera from surgery on board - Plan for attempt at IR drainage tomorrow - NPO - IV maintenance fluids Anemia of inflammation SCDs for ppx Problems: HPI/ROS Admit Date/Time Admit Date/Time Oct 17, 2016 at 13:50 Hx of Present Illness 45 yo female who is s/p recent admission for appendicitis with perforation and intrabdominal abscesses s/p surgery w washout who now returns with abdominal pain over past two days. Came to ED and CT shows intrabdominal abscesses. She has received IV zoysn and pain control. HD stable. PMH/Family/Social Past Surgical History Past Surgical Hx: appendectomy Family History Significant Family History: no pertinent family hx Social History Alcohol Use: none Smoking Status: Never smoker Drug Use: none Exam/Review of Systems Vital Signs Vitals Vital Signs Date Time Temp Pulse Resp B/P Pulse Ox O2 Delivery O2 Flow Rate FiO2 10/17/16 15:23 99.6 109 18 116/62 97 10/17/16 13:58 Room Air Exam Exam Comfortable appearing s/p opiates Nontoxic AOx3, pleasant RRR Abdomen soft, tender to palpation in RLQ primarily, also some tenderness in LLQ. No rebound no edema Labs reviewed imaging with intrabdoinal abscesses Labs Result Diagram: 10/17/16 1120 10/17/16 1120 Medications Medications Current Medications Piperacillin Sod/ Tazobactam Sod (Zosyn 3.375gm/ 100 ml (Pmx)) 100 ml @ 200 mls /hr Q6 IVPB ; Start 10/17/16 at 18:00 TORY LEE MD Oct 17, 2016 16:29
[2016-10-17] MEDS ORDERED: morphine 2 MG INJ IV PRN (17:00)
[2016-10-17] MEDS ORDERED: morphine 4 MG/ML VIAL IV PRN (17:57)
[2016-10-17] MEDS ORDERED: PIPER-TAZO 3.375 GM IV (PMX) 100 ML IVPB SCH (18:00)
[2016-10-17] MEDS: SOD CHLORIDE 0.45% 1,000 ML IV SCH (18:12)
[2016-10-17] MEDS: PIPER-TAZO 3.375 GM IV (PMX) 100 ML IVPB SCH ×2 (18:17→23:20)
[2016-10-17 19:54] VITALS: BP 118/72; RESP 20
[2016-10-17] MEDS: ACETAMINOPHEN 325 MG TAB PO PRN (20:10)
[2016-10-17] MEDS: morphine 4 MG/ML VIAL IV PRN (20:14)
[2016-10-18] VITALS (7 sets, daily range): BP systolic 95–115; BP diastolic 52–67; PULSE 113–115; RESP 16–19
[2016-10-18] MEDS: morphine 4 MG/ML VIAL IV PRN ×4 (03:27→21:15)
[2016-10-18] MEDS: PIPER-TAZO 3.375 GM IV (PMX) 100 ML IVPB SCH ×3 (05:37→18:05)
[2016-10-18 06:14] LABS: ABNORMAL IP MESSAGE 1; HEMATOCRIT 26.9 % (37.0-47.0); MEAN CORPUSCULAR HEMOGLOBIN 29.6 pg (29.0-33.0); MEAN CORPUSCULAR HGB CONC 33.5 g/dl (32.0-37.0); MEAN CORPUSCULAR VOLUME 88.5 fl (82.0-101.0); NUCLEATED RED BLOOD CELLS% 0.3 /100WBC (0.0-0.0); PLATELET COUNT 594 10^3/UL (140-415); RED BLOOD COUNT 3.04 10^6/ul (4.20-5.40); RED CELL DISTRIBUTION WIDTH 14.3 % (11.5-14.5); WHITE BLOOD COUNT 25.4 10^3/ul (4.8-10.8)
[2016-10-18] MEDS: SOD CHLORIDE 0.45% 1,000 ML IV SCH ×2 (06:18→18:00)
[2016-10-18 06:19] LABS: CALCIUM 8.2 mg/dl (8.4-10.2); CREATININE 0.57 mg/dl (0.44-1.00); POTASSIUM 3.6 mmol/L (3.5-5.1)
[2016-10-18 06:23] LABS: POSITIVE DIFF @See below
[2016-10-18 08:32] LABS: ANISOCYTOSIS 1+ (0-0); GIANT THROMBO% (M) 8 % (0-0); MONOCYTES % (M) 1 % (0-11); PLATELET ESTIMATE INCREASED; POLYCHROMASIA 3+ (0-0)
[2016-10-18] MEDS: SENNA TAB PO SCH ×2 (12:00→21:10)
[2016-10-18] MEDS: DOCUSATE SODIUM 100 MG CAP PO SCH ×2 (12:00→21:10)
--- NOTE | 2016-10-18 14:34 | PN ---
Date/Time of Note Date/Time of Note DATE: 10/18/16 TIME: 14:33 Assessment/Plan VTE Prophylaxis VTE Prophylaxis Intervention: SCD's Lines/Catheters IV Catheter Type (from Nrsg): Peripheral IV Assessment/Plan Chief Complaint/Hosp Course 1. Intrabdominal abscesses: - IV zosyn - Dr Viera from surgery on board - Plan for IR drainage today - NPO - IV maintenance fluids 2. Anemia of inflammation SCDs for ppx Problems: Subjective 24 Hr Interval Summary Gastrointestinal: pain Exam/Review of Systems Vital Signs Vitals Vital Signs Date Time Temp Pulse Resp B/P Pulse Ox O2 Delivery O2 Flow Rate FiO2 10/18/16 13:46 98.3 80 16 95/52 99 10/17/16 13:58 Room Air Intake and Output 10/17/16 10/17/16 10/18/16 15:00 23:00 07:00 Intake Total 1200 ml Output Total 1000 ml Balance 200 ml Exam Constitutional: alert Respiratory: clear to auscultation Cardiovascular: regular rate and rhythm Gastrointestinal: soft, No distended Musculoskeletal: nl extremities to inspection Results Result Diagram: 10/18/16 0446 10/18/16 0446 Results 24 hrs Laboratory Tests Test 10/18/16 04:46 White Blood Count 25.4 #H Red Blood Count 3.04 L Hemoglobin 9.0 L Hematocrit 26.9 L Mean Corpuscular Volume 88.5 Mean Corpuscular Hemoglobin 29.6 Mean Corpuscular Hemoglobin Concent 33.5 Red Cell Distribution Width 14.3 Platelet Count 594 H Mean Platelet Volume 10.0 Neutrophils % Segmented Neutrophils % (Manual) 95 H Band Neutrophils % (Manual) 1 Lymphocytes % Lymphocytes % (Manual) 3 L Monocytes % Monocytes % (Manual) 1 Eosinophils % Basophils % Nucleated Red Blood Cells % 0.3 H Neutrophils # Neutrophils # (Manual) 24.2 H Band Neutrophils # 0.2 Absolute Lymphocytes (Manual) 0.7 L Lymphocytes # Monocytes # Absolute Monocytes (Manual) 0.2 L Eosinophils # Basophils # Nucleated Red Blood Cells # Thrombocytosis 8 H Platelet Estimate INCREASED Polychromasia 3+ Anisocytosis 1+ Sodium Level 139 Potassium Level 3.6 Chloride Level 100 Carbon Dioxide Level 26 Anion Gap 17 H Blood Urea Nitrogen 9 Creatinine 0.57 Glucose Level 94 Calcium Level 8.2 L Medications Medications Current Medications Piperacillin Sod/ Tazobactam Sod 100 ml @ 200 mls/hr Q6 IVPB Last administered on 10/18/16 12:10; Admin Dose 200 MLS/HR; Start 10/17/16 at 18:00 Sodium Chloride (1/2 NS) 1,000 ml @ 80 mls/hr [id number] IV Last administered on 10/18/16 06:18; Admin Dose 80 MLS/HR; Start 10/17/16 at 17:00 Morphine Sulfate (morphine) 4 mg Q4H PRN IV pain Last administered on 12:10; Admin Dose 4 MG; Start 10/17/16 at 19:50 Acetaminophen (Tylenol Tab) 650 mg Q6H PRN PO PAIN AND OR ELEVATED TEMP Last administered on 10/17/16 20:10; Admin Dose 650 MG; Start 10/17/16 at 20:00 Docusate Sodium (Colace) 100 mg BID PO ; Start 10/18/16 at 12:00 Senna 1 tab 1 tab BID PO ; Start 10/18/16 at 12:00 Sodium Chloride (NS) 1,000 ml @ 1,000 mls/hr Q1H IV ; Start 10/18/16 at 16:00; Stop 10/18/16 at 17:00 RUSH DENNY Oct 18, 2016 14:34
[2016-10-18] MEDS ORDERED: SOD CHLORIDE 0.9% 500 ML ONE (15:31)
[2016-10-18] MEDS ORDERED: MIDAZOLAM 1 MG/ML 2 ML INJ ONE (15:31)
[2016-10-18] MEDS ORDERED: LIDOCAINE 1% (MDV) 20 ML INJ ONE (15:31)
[2016-10-18] MEDS ORDERED: FENTAnyl 50 MCG/ML VIAL ONE ×2 (15:31)
--- NOTE | 2016-10-18 15:47 | PN ---
Date/Time of Note Date/Time of Note DATE: 10/18/16 TIME: 15:45 Assessment/Plan Lines/Catheters IV Catheter Type (from Nrs): Peripheral IV Assessment/Plan Assessment/Plan [facility] Progress Note Date of Service: 10/18/2016 Place of service: [facility] fourth floor Today's Assessment & Plan: Postoperative abscess. Not unexpected given intraoperative findings. Patient scheduled for percutaneous drainage. I explained this in detail to the patient' s and her and answered all of their questions to the best of my ability. Patient and family appear to understand and agreed with the plans. With above assessment, I've recommended the following for today: 1. Proceed with percutaneous drainage of intra-abdominal abscess 2. Keep in-house 3. Continue broad-spectrum antimicrobials 4. Symptom control 5. Normal saline 1 L 6. Careful reassessment with possible need for reexploration with laparoscopic washout if drainage not successful Thank you again for your great care of this very pleasant patient and wonderful family. If there are any questions, please feel free to call me at [phone]. Nature of presenting problem: High severity Please note that, given the multiple number of diagnoses or management options, the moderate amount and/or complexity of data needed to be reviewed, and I risk of complications and/or morbidity or mortality, this qualifies as moderate to high complexity type of decision-making. Disclaimer: Inadvertent spelling and grammatical errors are likely due to EHR/ dictation software use and do not reflect on the quality of delivered patient care. Also, please note that the electronic time recorded on this node does not necessarily reflect the actual time of the visit. Updated clinical summary: Patient is a very-pleasant and otherwise healthy 45-year-old lady without significant known comorbidities her past history, presenting to the emergency department at [facility] for signs and symptoms consistent with acute appendicitis as demonstrated by her history and physical, elevated white blood cell count to [address] scan findings possibly pointing to localized perforation of appendix with no drainable abscess. This is despite her relatively otherwise normal-appearing laboratory values. Status post an otherwise uncomplicated laparoscopic appendectomy was performed with findings of likely sealed perforation of appendix with presence of pus in the abdominal cavity at [facility] on 10/09/2016. Readmitted to [facility] 10/17/2016 with intraoperative abscess but no evidence of obvious bowel perforation or stool leakage. Comorbidities: 1. Acute appendicitis with likely sealed perforation and presence of intra- abdominal pus. Status post an otherwise uncomplicated laparoscopic appendectomy was performed with findings of likely sealed perforation of appendix with presence of pus in the abdominal cavity at [facility] on 2016. 2. Hysterectomy for fibroids at [facility] 2017 Subjective: No major events or complaints since readmission except for fevers; mild to moderate abd pain and under control with medications; no n/v/d; no sob or cp; also difficulty with urination; - flatus; - BM; + activity Objective: Vitals: See below I's & O's: See below Exam: GENERAL: On exam, the patient was lying in bed and appeared to be comfortable and in no acute distress. ABDOMEN: Soft, mild to moderately tender and nondistended. Incisions are clean , dry and intact without any evidence of obvious erythema, edema, discharge, or hernia. There are no peritoneal signs or guarding. SKIN: Skin appears to be pink and feels warm to touch. NEUROLOGIC: Patient is awake, alert, and follows commands appropriately. Labs: See below Exam/Review of Systems Vital Signs Vitals Vital Signs Date Time Temp Pulse Resp B/P Pulse Ox O2 Delivery O2 Flow Rate FiO2 10/18/16 13:46 98.3 80 16 95/52 99 10/17/16 13:58 Room Air Intake and Output 10/17/16 10/17/16 10/18/16 15:00 23:00 07:00 Intake Total 1200 ml Output Total 1000 ml Balance 200 ml Results Result Diagram: 10/18/16 0446 10/18/16 0446 VIDAL ARROYO M.D. Oct 18, 2016 15:47
[2016-10-18] MEDS: SOD CHLORIDE 0.9% 1,000 ML IV SCH ×2 (17:00→18:05)
--- NOTE | 2016-10-18 17:00 | RADRPT ---
PROCEDURE: CT guided abdominal abscess drainage. CLINICAL INDICATION: Abdominal and pelvic pain. Pelvic abscesses. TECHNIQUE: Informed consent was obtained. The procedure, risks, benefits, complications and alternatives were explained to the patient. Risks including bleeding and infection were explained. The patient underst ood and was willing to proceed. A procedural pause was performed. The patient's name, date of , and procedure to be performed were verified. One or more of the following dose reduction techniq ues were used: Automated exposure control, adjustment of the mA and/or kV according to patient size, use of iterative reconstruction technique. Using local anesthetic, sterile technique and CT guidance, a 19-gauge Yueh needle was advanced into the fluid collection in the right side of the pelvis superiorly. CT scan was performed confirming p osition. Purulent fluid was also aspirated confirming position. The needle from the Yueh catheter was removed, leaving the Yueh catheter in place within the fluid collection. A 0.035-inch Amplatz g uidewire was advanced through the Yueh catheter into the fluid collection. The Yueh catheter was re moved. The tract was dilated to 8-[place]. An 8.5 [place] multipurpose drainage catheter was advance d over the guidewire into the fluid collection. The guidewire was removed. Additional scanning was performed confirming position. The catheter was then sutured to the patient's skin with 2-0 silk. Approximately 145 ml of purulent fluid was aspirated. The catheter was connected to a drainage bag . A dressing was applied. Using local anesthetic, sterile technique and CT guidance, a 19-gauge Yueh needle was advanced into the fluid collection in the left side of the pelvis inferiorly. CT scan was performed confirming po sition. Purulent fluid was also aspirated confirming position. The needle from the Yueh catheter w as removed, leaving the Yueh catheter in place within the fluid collection. A 0.035-inch Amplatz gu idewire was advanced through the Yueh catheter into the fluid collection. The Yueh catheter was rem quan. The tract was dilated to 8-[place]. An 8.5 [place] multipurpose drainage catheter was advanced over the guidewire into the fluid collection. The guidewire was removed. Additional scanning was performed confirming position. The catheter was then sutured to the patient's skin with 2-0 silk. Approximately 80 ml of purulent fluid was aspirated. The catheter was connected to a drainage bag. A dressing was applied. The patient tolerated procedure well. COMPARISON: None. FINDINGS: Final images demonstrate the drainage catheters in satisfactory position within the 2 fluid collecti ons in the pelvis. IMPRESSION: 1. Successful CT guided pelvic abscess drainages. RPTAT: QQ .Albin Whitmore MD, Date Time Electronically viewed and signed by .Albin Whitmore MD, on 10/18/2016 16:59 .R/
--- NOTE | 2016-10-18 18:05 | RADRPT ---
PROCEDURE: CT guided abdominal abscess drainage. CLINICAL INDICATION: Abdominal and pelvic pain. Pelvic abscesses. TECHNIQUE: Informed consent was obtained. The procedure, risks, benefits, complications and alternatives were e xplained to the patient. Risks including bleeding and infection were explained. The patient understo od and was willing to proceed. A procedural pause was performed. The patient's name, date of , and procedure to be performed were verified. One or more of the following dose reduction techniques were used: Automated exposure control, adjustment of the mA and/or kV according to patient size, use of iterative reconstruction technique. Using local anesthetic, sterile technique and CT guidance, a 19-gauge Yueh needle was advanced into the fluid collection in the right side of the pelvis superiorly. CT scan was performed confirming po sition. Purulent fluid was also aspirated confirming position. The needle from the Yueh catheter was removed, leaving the Yueh catheter in place within the fluid collection. A 0.035-inch Amplatz guide wire was advanced through the Yueh catheter into the fluid collection. The Yueh catheter was removed . The tract was dilated to 8-[place]. An 8.5 [place] multipurpose drainage catheter was advanced over the guidewire into the fluid collection. The guidewire was removed. Additional scanning was performe d confirming position. The catheter was then sutured to the patient's skin with 2-0 silk. Approximat [place] 145 ml of purulent fluid was aspirated. The catheter was connected to a drainage bag. A dressing was applied. Using local anesthetic, sterile technique and CT guidance, a 19-gauge Yueh needle was advanced into the fluid collection in the left side of the pelvis inferiorly. CT scan was performed confirming pos ition. Purulent fluid was also aspirated confirming position. The needle from the Yueh catheter was removed, leaving the Yueh catheter in place within the fluid collection. A 0.035-inch Amplatz guidew rosemary was advanced through the Yueh catheter into the fluid collection. The Yueh catheter was removed. The tract was dilated to 8-[place]ian. An 8.5 [place]ian multipurpose drainage catheter was advanced over t he guidewire into the fluid collection. The guidewire was removed. Additional scanning was performed confirming position. The catheter was then sutured to the patient's skin with 2-0 silk. Approximate ly 80 ml of purulent fluid was aspirated. The catheter was connected to a drainage bag. A dressing w as applied. The patient tolerated procedure well. COMPARISON: None. FINDINGS: Final images demonstrate the drainage catheters in satisfactory position within the 2 fluid collecti ons in the pelvis. IMPRESSION: 1. Successful CT guided pelvic abscess drainages. RPTAT: QQ .Albin Whtimore MD, Date Time Electronically viewed and signed by .Albin Whitmore MD, on 10/18/2016 18:04 .R/
[2016-10-18] MEDS: ACETAMINOPHEN 325 MG TAB PO PRN (22:36)
[2016-10-19] MEDS: PIPER-TAZO 3.375 GM IV (PMX) 100 ML IVPB SCH ×5 (00:11→23:33)
[2016-10-19] MEDS: SOD CHLORIDE 0.45% 1,000 ML IV SCH ×2 (00:29→17:23)
[2016-10-19 02:00] VITALS: BP 105/62; RESP 18
[2016-10-19 05:39] LABS: BASOPHILS % 0.2 % (0.0-2.0); EOSINOPHILS # 0.1 10^3/ul (0.0-0.5); EOSINOPHILS % 0.2 % (0.0-7.0); HEMATOCRIT 26.3 % (37.0-47.0); HEMOGLOBIN 8.9 g/dl (12.0-16.0); LYMPHOCYTES % 4.4 % (15.0-51.0); MEAN CORPUSCULAR HEMOGLOBIN 29.7 pg (29.0-33.0); MEAN CORPUSCULAR HGB CONC 33.8 g/dl (32.0-37.0); MEAN CORPUSCULAR VOLUME 87.7 fl (82.0-101.0); MEAN PLATELET VOLUME 9.6 fl (7.4-10.4); MONOCYTE # 0.9 10^3/ul (0.3-0.9); NEUTROPHIL # 19.8 10^3/ul (1.6-7.5); NEUTROPHILS % 87.7 % (39.0-77.0); NUCLEATED RED BLOOD CELLS% 0.2 /100WBC (0.0-0.0); PLATELET COUNT 623 10^3/UL (140-415); RED CELL DISTRIBUTION WIDTH 14.3 % (11.5-14.5); WHITE BLOOD COUNT 22.5 10^3/ul (4.8-10.8)
[2016-10-19 06:42] LABS: CALCIUM 7.9 mg/dl (8.4-10.2); CREATININE 0.57 mg/dl (0.44-1.00); MAGNESIUM 2.1 mg/dl (1.7-2.5); PHOSPHORUS 3.2 mg/dl (2.5-4.9); POTASSIUM 3.8 mmol/L (3.5-5.1)
[2016-10-19 07:32] VITALS: BP 107/64; RESP 18
[2016-10-19] MEDS: SENNA TAB PO SCH ×2 (08:25→20:53)
[2016-10-19] MEDS: DOCUSATE SODIUM 100 MG CAP PO SCH ×2 (08:25→20:53)
[2016-10-19] MEDS: morphine 4 MG/ML VIAL IV PRN ×4 (08:27→23:33)
[2016-10-19 14:07] VITALS: BP 112/69; PULSE 109; RESP 16
--- NOTE | 2016-10-19 15:36 | PN ---
Date/Time of Note Date/Time of Note DATE: 10/19/16 TIME: 15:34 Assessment/Plan VTE Prophylaxis VTE Prophylaxis Intervention: SCD's Lines/Catheters IV Catheter Type (from Nrs): Peripheral IV Assessment/Plan Chief Complaint/Hosp Course 1. Intrabdominal abscesses status post IR drainage -Continue drainage - IV zosyn - Dr Viera from surgery on board - IV maintenance fluids 2. Leukocytosis secondary #1 -Antibiotics 3. Anemia of inflammation SCDs for ppx Problems: Subjective 24 Hr Interval Summary Constitutional: no complaints Exam/Review of Systems Vital Signs Vitals Vital Signs Date Time Temp Pulse Resp B/P Pulse Ox O2 Delivery O2 Flow Rate FiO2 10/19/16 14:07 99.8 109 16 112/69 98 Room Air Intake and Output 10/18/16 10/18/16 10/19/16 15:00 23:00 07:00 Intake Total 800 ml 1350 ml 920 ml Output Total 450 ml Balance 800 ml 900 ml 920 ml Exam Constitutional: alert, oriented Respiratory: clear to auscultation Cardiovascular: regular rate and rhythm Gastrointestinal: soft, No distended Musculoskeletal: nl extremities to inspection Results Result Diagram: 10/19/16 0519 10/19/16 0516 Results 24 hrs Laboratory Tests Test 10/19/16 05:16 10/19/16 05:19 Sodium Level 138 Potassium Level 3.8 Chloride Level 101 Carbon Dioxide Level 26 Anion Gap 15 Blood Urea Nitrogen 6 L Creatinine 0.57 Glucose Level 98 Calcium Level 7.9 L Phosphorus Level 3.2 Magnesium Level 2.1 White Blood Count 22.5 H Red Blood Count 3.00 L Hemoglobin 8.9 L Hematocrit 26.3 L Mean Corpuscular Volume 87.7 Mean Corpuscular Hemoglobin 29.7 Mean Corpuscular Hemoglobin Concent 33.8 Red Cell Distribution Width 14.3 Platelet Count 623 H Mean Platelet Volume 9.6 Neutrophils % 87.7 H Lymphocytes % 4.4 L Monocytes % 4.0 Eosinophils % 0.2 Basophils % 0.2 Nucleated Red Blood Cells % 0.2 H Neutrophils # 19.8 H Lymphocytes # 1.0 Monocytes # 0.9 Eosinophils # 0.1 Basophils # 0.0 Nucleated Red Blood Cells # 0.0 Medications Medications Current Medications Piperacillin Sod/ Tazobactam Sod 100 ml @ 200 mls/hr Q6 IVPB Last administered on 10/19/16 11:46; Admin Dose 200 MLS/HR; Start 10/17/16 at 18:00 Sodium Chloride (1/2 NS) 1,000 ml @ 80 mls/hr [id number] IV Last administered on 10/19/16 00:29; Admin Dose 80 MLS/HR; Start 10/17/16 at 17:00 Morphine Sulfate (morphine) 4 mg Q4H PRN IV pain Last administered on 10/19/16 13:57; Admin Dose 4 MG; Start 10/17/16 at 19:50 Acetaminophen (Tylenol Tab) 650 mg Q6H PRN PO PAIN AND OR ELEVATED TEMP Last administered on 10/18/16 22:36; Admin Dose 650 MG; Start 10/17/16 at 20:00 Docusate Sodium (Colace) 100 mg BID PO Last administered on 10/19/16 08:25; Admin Dose 100 MG; Start 10/18/16 at 12:00 Senna (Senokot) 1 tab BID PO Last administered on 10/19/16 08:25; Admin Dose 1 TAB; Start 10/18/16 at 12:00 RUSH DENNY Oct 19, 2016 15:36
--- NOTE | 2016-10-19 15:46 | PN ---
Date/Time of Note Date/Time of Note DATE: 10/19/16 TIME: 08:40 Assessment/Plan Lines/Catheters IV Catheter Type (from Nrs): Peripheral IV Assessment/Plan Assessment/Plan [facility] Progress Note Date of Service: 10/19/2016 Place of service: [facility] fourth floor Today's Assessment & Plan: Postoperative abscess, s/p perc drain (x2); improved. No indication for acute surgical intervention. I explained this in detail to the patient's and her and answered all of their questions to the best of my ability. Patient and family appear to understand and agreed with the plans. With above assessment, I've recommended the following for today: 1. Continue current cares 2. Keep in-house 3. Continue broad-spectrum antimicrobials 4. Symptom control 5. Educated patient and family regarding drain care and set up home health in anticipation of discharge with drains in place Thank you again for your great care of this very pleasant patient and wonderful family. If there are any questions, please feel free to call me at [phone]. Nature of presenting problem: High severity Please note that, given the multiple number of diagnoses or management options, the moderate amount and/or complexity of data needed to be reviewed, and I risk of complications and/or morbidity or mortality, this qualifies as moderate to high complexity type of decision-making. Disclaimer: Inadvertent spelling and grammatical errors are likely due to EHR/ dictation software use and do not reflect on the quality of delivered patient care. Also, please note that the electronic time recorded on this node does not necessarily reflect the actual time of the visit. Updated clinical summary: Patient is a very-pleasant and otherwise healthy 45-year-old lady without significant known comorbidities her past history, presenting to the emergency department at [facility] for signs and symptoms consistent with acute appendicitis as demonstrated by her history and physical, elevated white blood cell count to [address] scan findings possibly pointing to localized perforation of appendix with no drainable abscess. This is despite her relatively otherwise normal-appearing laboratory values. Status post an otherwise uncomplicated laparoscopic appendectomy was performed with findings of likely sealed perforation of appendix with presence of pus in the abdominal cavity at [facility] on 10/09/2016. Readmitted to [facility] 10/17/2016 with intraoperative abscess but no evidence of obvious bowel perforation or stool leakage. Status post drain placement (2) percutaneously to drain intra-abdominal fluid collections at [facility] 10/18/2016. Comorbidities: 1. Acute appendicitis with likely sealed perforation and presence of intra- abdominal pus. Status post an otherwise uncomplicated laparoscopic appendectomy was performed with findings of likely sealed perforation of appendix with presence of pus in the abdominal cavity at [facility] on 2016. 2. Hysterectomy for fibroids at [place] [address] Subjective: No major events or complaints other than above mentioned drain placements; serosanguineous fluid being drained; cultures pending; minimal abd pain and under control with medications; no n/v/d; no sob or cp; also difficulty with urination; + flatus; - BM; + activity Objective: Vitals: See below I's & O's: See below Exam: GENERAL: On exam, the patient was lying in bed and appeared to be comfortable and in no acute distress. ABDOMEN: Soft, mildly tender and nondistended. Incisions are clean, dry and intact without any evidence of obvious erythema, edema, discharge, or hernia. Bilateral abdominal wall drains with serosanguineous output. There are no peritoneal signs or guarding. SKIN: Skin appears to be pink and feels warm to touch. NEUROLOGIC: Patient is awake, alert, and follows commands appropriately. Labs: See below Exam/Review of Systems Vital Signs Vitals Vital Signs Date Time Temp Pulse Resp B/P Pulse Ox O2 Delivery O2 Flow Rate FiO2 10/19/16 14:07 99.8 109 16 112/69 98 Room Air Intake and Output 10/18/16 10/18/16 10/19/16 15:00 23:00 07:00 Intake Total 800 ml 1350 ml 920 ml Output Total 450 ml Balance 800 ml 900 ml 920 ml Results Result Diagram: 10/19/16 0519 10/19/16 0516 VIDAL ARROYO M.D. Oct 19, 2016 15:46
[2016-10-19 20:13] VITALS: BP 110/70; RESP 18
[2016-10-20 02:00] VITALS: BP 104/61; RESP 18
[2016-10-20] MEDS: PIPER-TAZO 3.375 GM IV (PMX) 100 ML IVPB SCH ×4 (05:42→23:52)
[2016-10-20 06:43] LABS: BASOPHILS % 0.2 % (0.0-2.0); EOSINOPHILS # 0.1 10^3/ul (0.0-0.5); EOSINOPHILS % 0.6 % (0.0-7.0); HEMATOCRIT 25.4 % (37.0-47.0); HEMOGLOBIN 8.5 g/dl (12.0-16.0); LYMPHOCYTES # 1.1 10^3/ul (0.8-2.9); MEAN CORPUSCULAR HEMOGLOBIN 29.3 pg (29.0-33.0); MEAN CORPUSCULAR HGB CONC 33.5 g/dl (32.0-37.0); MEAN CORPUSCULAR VOLUME 87.6 fl (82.0-101.0); MONOCYTE # 0.8 10^3/ul (0.3-0.9); MONOCYTES % 4.8 % (0.0-11.0); NEUTROPHIL # 14.9 10^3/ul (1.6-7.5); NEUTROPHILS % 85.8 % (39.0-77.0); NUCLEATED RED BLOOD CELLS% 0.2 /100WBC (0.0-0.0); PLATELET COUNT 684 10^3/UL (140-415); RED CELL DISTRIBUTION WIDTH 14.4 % (11.5-14.5); WHITE BLOOD COUNT 17.4 10^3/ul (4.8-10.8)
[2016-10-20 07:07] LABS: CALCIUM 7.8 mg/dl (8.4-10.2); CREATININE 0.49 mg/dl (0.44-1.00); POTASSIUM 3.3 mmol/L (3.5-5.1)
[2016-10-20] MEDS: SOD CHLORIDE 0.45% 1,000 ML IV SCH ×2 (07:30→17:40)
[2016-10-20] MEDS: DOCUSATE SODIUM 100 MG CAP PO SCH ×2 (08:37→20:11)
[2016-10-20] MEDS: SENNA TAB PO SCH ×2 (08:37→20:11)
--- NOTE | 2016-10-20 09:06 | CONS ---
Date/Time of Note Date/Time of Note DATE: 10/20/16 TIME: 09:05 Consultation Date/Type/Reason Admit Date/Time Oct 17, 2016 at 13:50 Date of Consultation: Oct 20, 2016 Type of Consultation: ID Reason for Consultation Antibiotic management Constitutional: no complaints Gastrointestinal: pain Past Surgical History Past Surgical Hx: appendectomy Social History Alcohol Use: none Smoking Status: Never smoker Drug Use: none Exam/Review of Systems Vital Signs Vitals Vital Signs Date Time Temp Pulse Resp B/P Pulse Ox O2 Delivery O2 Flow Rate FiO2 10/20/16 02:00 99.3 104 18 104/61 97 10/19/16 14:07 Room Air Intake and Output 10/19/16 10/19/16 10/20/16 15:00 23:00 07:00 Intake Total 1560 ml 950 ml Output Total 80 ml Balance 1480 ml 950 ml Results Result Diagram: 10/20/16 0537 10/20/16 0536 Results 24 hrs Laboratory Tests Test 10/20/16 05:36 10/20/16 05:37 Sodium Level 138 Potassium Level 3.3 L Chloride Level 101 Carbon Dioxide Level 26 Anion Gap 14 Blood Urea Nitrogen 6 L Creatinine 0.49 Glucose Level 102 Calcium Level 7.8 L White Blood Count 17.4 #H Red Blood Count 2.90 L Hemoglobin 8.5 L Hematocrit 25.4 L Mean Corpuscular Volume 87.6 Mean Corpuscular Hemoglobin 29.3 Mean Corpuscular Hemoglobin Concent 33.5 Red Cell Distribution Width 14.4 Platelet Count 684 H Mean Platelet Volume 10.0 Neutrophils % 85.8 H Lymphocytes % 6.0 L Monocytes % 4.8 Eosinophils % 0.6 Basophils % 0.2 Nucleated Red Blood Cells % 0.2 H Neutrophils # 14.9 H Lymphocytes # 1.1 Monocytes # 0.8 Eosinophils # 0.1 Basophils # 0.0 Nucleated Red Blood Cells # 0.0 Medications Medications Current Medications Piperacillin Sod/ Tazobactam Sod 100 ml @ 200 mls/hr Q6 IVPB Last administered on 10/20/16 05:42; Admin Dose 200 MLS/HR; Start 10/17/16 at 18:00 Sodium Chloride (1/2 NS) 1,000 ml @ 80 mls/hr [id number] IV Last administered on 10/19/16 17:23; Admin Dose 80 MLS/HR; Start 10/17/16 at 17:00 Morphine Sulfate (morphine) 4 mg Q4H PRN IV pain Last administered on 10/19/16 23:33; Admin Dose 4 MG; Start 10/17/16 at 19:50 Acetaminophen (Tylenol Tab) 650 mg Q6H PRN PO PAIN AND OR ELEVATED TEMP Last administered on 10/18/16 22:36; Admin Dose 650 MG; Start 10/17/16 at 20:00 Docusate Sodium (Colace) 100 mg BID PO Last administered on 10/20/16 08:37; Admin Dose 100 MG; Start 10/18/16 at 12:00 Senna (Senokot) 1 tab BID PO Last administered on 10/20/16 08:37; Admin Dose 1 TAB; Start 10/18/16 at 12:00 HANK SPENCE MD Oct 20, 2016 09:06
[2016-10-20 09:13] VITALS: BP 102/62; RESP 18
[2016-10-20] MEDS ORDERED: POTASSIUM CHLORIDE (SR) 20 MEQ TAB PO STA (09:42)
[2016-10-20] MEDS: morphine 4 MG/ML VIAL IV PRN ×3 (12:09→22:31)
--- NOTE | 2016-10-20 13:06 | CONS ---
DATE OF ADMISSION: 10/17/2016 DATE OF CONSULTATION: 10/20/2016 REASON FOR CONSULTATION: Antibiotic management. HISTORY OF PRESENT ILLNESS: Huyen Morse is a 45-year-old female, with recent admission for appendicitis with perforation and intra-abdominal abscess. Status post surgery with washout. She now returns with abdominal pain over the past few days. She came to the emergency room. CT scan shows intra-abdominal abscesses. She was placed on Zosyn and pain control. PAST MEDICAL HISTORY: Status post appendectomy. PAST SURGICAL HISTORY: As outlined. FAMILY HISTORY: Noncontributory. SOCIAL HISTORY: She does not smoke, drink, or abuse drugs. ALLERGIES: NONE TO PENICILLIN, SULFA, OR FOODS. MEDICATION: Per chart review. REVIEW OF SYSTEMS: As per HPI. HOSPITAL COURSE: The patient has a postoperative abscess. I have recommended percutaneous drainage of intra-abdominal abscess by Dr. Viera. Careful reassessment with possible need for re- exploration with laparoscopic washout if drainage is not successful. On 10/19/2016, the patient had postoperative abscess status post percutaneous drainage x2. No indication for acute surgical intervention. Patient is currently on Zosyn. The urine culture is growing E coli 10,000-20,000 colony-forming units of yeast. The E coli from the wound is sensitive to cefotaxime and to Levaquin. FAMILY HISTORY: Noncontributory. PHYSICAL EXAMINATION: GENERAL APPEARANCE: Patient is a pleasant female, alert, responsive, in no acute distress. VITAL SIGNS: Vital signs are stable. She is afebrile. SKIN: Skin without generalized rash. HEENT: HEENT within normal limits. NECK: Neck is supple. Lymph nodes not palpable. LUNGS: Decreased breath sounds at the bases. HEART: Without murmur or gallop. ABDOMEN: Abdomen is soft. It is slightly tender. She has an a catheter in place in the right lower quadrant. EXTREMITIES: Extremities without cyanosis, clubbing, or edema. RECTAL AND GENITAL: Deferred. NEUROLOGIC: No focal neurological abnormalities. IMPRESSION: Huyen Morse is a 45-year-old female, status post perforated appendix. Once she is slightly more stable, we can switch her over either to ceftriaxone or even to Levaquin, and then arrange for her to go home. I will dictate my findings to the hospitalist and to Dr. Viera. Dictated By: Lonnie Grijalva MD JD/kalyn/janice /Document#: [id number]
--- NOTE | 2016-10-20 14:10 | PN ---
Date/Time of Note Date/Time of Note DATE: 10/20/16 TIME: 14:08 Assessment/Plan VTE Prophylaxis VTE Prophylaxis Intervention: SCD's Lines/Catheters IV Catheter Type (from Nrs): Peripheral IV Assessment/Plan Chief Complaint/Hosp Course 1. Intrabdominal abscesses status post IR drainage -Continue drainage - IV zosyn - Dr Viera from surgery on board - ID consultation appreciated 2. Leukocytosis secondary #1-improved -Antibiotics 3. Anemia of inflammation SCDs for ppx Discharge planning: Anticipate DC home in 1-2 days, case hardener to arrange for home health, patient may need IV antibiotics upon discharge Problems: Subjective 24 Hr Interval Summary Constitutional: no complaints Exam/Review of Systems Vital Signs Vitals Vital Signs Date Time Temp Pulse Resp B/P Pulse Ox O2 Delivery O2 Flow Rate FiO2 10/20/16 09:13 97.3 81 18 102/62 97 10/19/16 14:07 Room Air Intake and Output 10/19/16 10/19/16 10/20/16 15:00 23:00 07:00 Intake Total 1560 ml 950 ml Output Total 80 ml Balance 1480 ml 950 ml Exam Constitutional: alert Respiratory: clear to auscultation Cardiovascular: regular rate and rhythm Gastrointestinal: soft, No distended Musculoskeletal: nl extremities to inspection Results Result Diagram: 10/20/16 0537 10/20/16 0536 Results 24 hrs Laboratory Tests Test 10/20/16 05:36 10/20/16 05:37 Sodium Level 138 Potassium Level 3.3 L Chloride Level 101 Carbon Dioxide Level 26 Anion Gap 14 Blood Urea Nitrogen 6 L Creatinine 0.49 Glucose Level 102 Calcium Level 7.8 L White Blood Count 17.4 #H Red Blood Count 2.90 L Hemoglobin 8.5 L Hematocrit 25.4 L Mean Corpuscular Volume 87.6 Mean Corpuscular Hemoglobin 29.3 Mean Corpuscular Hemoglobin Concent 33.5 Red Cell Distribution Width 14.4 Platelet Count 684 H Mean Platelet Volume 10.0 Neutrophils % 85.8 H Lymphocytes % 6.0 L Monocytes % 4.8 Eosinophils % 0.6 Basophils % 0.2 Nucleated Red Blood Cells % 0.2 H Neutrophils # 14.9 H Lymphocytes # 1.1 Monocytes # 0.8 Eosinophils # 0.1 Basophils # 0.0 Nucleated Red Blood Cells # 0.0 Medications Medications Current Medications Piperacillin Sod/ Tazobactam Sod 100 ml @ 200 mls/hr Q6 IVPB Last administered on 10/20/16 12:08; Admin Dose 200 MLS/HR; Start 10/17/16 at 18:00 Sodium Chloride (1/2 NS) 1,000 ml @ 80 mls/hr [id number] IV Last administered on 10/19/16 17:23; Admin Dose 80 MLS/HR; Start 10/17/16 at 17:00 Morphine Sulfate (morphine) 4 mg Q4H PRN IV pain Last administered on 10/20/16 12:09; Admin Dose 4 MG; Start 10/17/16 at 19:50 Acetaminophen (Tylenol Tab) 650 mg Q6H PRN PO PAIN AND OR ELEVATED TEMP Last administered on 10/18/16 22:36; Admin Dose 650 MG; Start 10/17/16 at 20:00 Docusate Sodium (Colace) 100 mg BID PO Last administered on 10/20/16 08:37; Admin Dose 100 MG; Start 10/18/16 at 12:00 Senna (Senokot) 1 tab BID PO Last administered on 10/20/16 08:37; Admin Dose 1 TAB; Start 10/18/16 at 12:00 RUSH DENNY Oct 20, 2016 14:10
[2016-10-20 15:30] VITALS: BP 101/58; RESP 18
--- NOTE | 2016-10-20 21:33 | PN ---
Date/Time of Note Date/Time of Note DATE: 10/20/16 TIME: 21:32 Assessment/Plan Lines/Catheters IV Catheter Type (from Nrs): Peripheral IV Assessment/Plan Assessment/Plan [facility] Progress Note Date of Service: 10/20/2016 Place of service: [facility] fourth floor Today's Assessment & Plan: Postoperative abscess, s/p perc drain (x2); improved. No indication for acute surgical intervention. I explained this in detail to the patient and answered all of her questions to the best of my ability. Patient appeared to understand and agreed with the plans. With above assessment, I've recommended the following for today: 1. Continue current cares 2. Keep in-house 3. Continue broad-spectrum antimicrobials 4. Symptom control 5. Educated patient and family regarding drain care and set up home health in anticipation of discharge with drains in place Thank you again for your great care of this very pleasant patient and wonderful family. If there are any questions, please feel free to call me at [phone]. Nature of presenting problem: High severity Please note that, given the multiple number of diagnoses or management options, the moderate amount and/or complexity of data needed to be reviewed, and I risk of complications and/or morbidity or mortality, this qualifies as moderate to high complexity type of decision-making. Disclaimer: Inadvertent spelling and grammatical errors are likely due to EHR/ dictation software use and do not reflect on the quality of delivered patient care. Also, please note that the electronic time recorded on this node does not necessarily reflect the actual time of the visit. Updated clinical summary: Patient is a very-pleasant and otherwise healthy 45-year-old lady without significant known comorbidities her past history, presenting to the emergency department at [facility] for signs and symptoms consistent with acute appendicitis as demonstrated by her history and physical, elevated white blood cell count to [address] scan findings possibly pointing to localized perforation of appendix with no drainable abscess. This is despite her relatively otherwise normal-appearing laboratory values. Status post an otherwise uncomplicated laparoscopic appendectomy was performed with findings of likely sealed perforation of appendix with presence of pus in the abdominal cavity at [facility] on 10/09/2016. Readmitted to [facility] 10/17/2016 with intraoperative abscess but no evidence of obvious bowel perforation or stool leakage. Status post drain placement (2) percutaneously to drain intra-abdominal fluid collections at [facility] 10/18/2016. Comorbidities: 1. Acute appendicitis with likely sealed perforation and presence of intra- abdominal pus. Status post an otherwise uncomplicated laparoscopic appendectomy was performed with findings of likely sealed perforation of appendix with presence of pus in the abdominal cavity at [facility] on 2016. 2. Hysterectomy for fibroids at [place] [address] Subjective: No major events or complaints; reported feeling better; serosanguineous fluid being drained; minimal abd pain and under control with medications; no n/v/d; no sob or cp; also difficulty with urination; + flatus; - BM; + activity Objective: Vitals: See below I's & O's: See below Exam: GENERAL: On exam, the patient was lying in bed and appeared to be comfortable and in no acute distress. ABDOMEN: Soft, mildly tender and nondistended. Incisions are clean, dry and intact without any evidence of obvious erythema, edema, discharge, or hernia. Bilateral abdominal wall drains with serosanguineous output. There are no peritoneal signs or guarding. SKIN: Skin appears to be pink and feels warm to touch. NEUROLOGIC: Patient is awake, alert, and follows commands appropriately. Labs: See below Exam/Review of Systems Vital Signs Vitals Vital Signs Date Time Temp Pulse Resp B/P Pulse Ox O2 Delivery O2 Flow Rate FiO2 10/21/16 07:25 98.3 84 16 110/67 97 10/19/16 14:07 Room Air Intake and Output 10/20/16 10/20/16 10/21/16 15:00 23:00 07:00 Intake Total 270 ml 260 ml 1340 ml Output Total 80 ml Balance 270 ml 180 ml 1340 ml Results Result Diagram: 10/21/16 0511 10/21/16 0511 VIDAL ARROYO M.D. Oct 20, 2016 21:33
[2016-10-21 01:21] VITALS: BP 107/69; RESP 18
[2016-10-21] MEDS: morphine 4 MG/ML VIAL IV PRN ×3 (04:46→22:34)
[2016-10-21] MEDS: PIPER-TAZO 3.375 GM IV (PMX) 100 ML IVPB SCH ×3 (05:29→17:28)
[2016-10-21 05:42] LABS: BASOPHIL # 0.1 10^3/ul (0.0-0.1); BASOPHILS % 0.3 % (0.0-2.0); EOSINOPHILS # 0.2 10^3/ul (0.0-0.5); EOSINOPHILS % 1.1 % (0.0-7.0); HEMATOCRIT 26.7 % (37.0-47.0); HEMOGLOBIN 8.6 g/dl (12.0-16.0); LYMPHOCYTES # 1.2 10^3/ul (0.8-2.9); LYMPHOCYTES % 7.6 % (15.0-51.0); MEAN CORPUSCULAR HEMOGLOBIN 28.6 pg (29.0-33.0); MEAN CORPUSCULAR HGB CONC 32.2 g/dl (32.0-37.0); MEAN CORPUSCULAR VOLUME 88.7 fl (82.0-101.0); MEAN PLATELET VOLUME 9.7 fl (7.4-10.4); MONOCYTE # 0.8 10^3/ul (0.3-0.9); MONOCYTES % 5.1 % (0.0-11.0); NEUTROPHIL # 13.2 10^3/ul (1.6-7.5); NUCLEATED RED BLOOD CELLS # 0.1 10^3/ul (0.0-0.0); NUCLEATED RED BLOOD CELLS% 0.6 /100WBC (0.0-0.0); PLATELET COUNT 795 10^3/UL (140-415); RED BLOOD COUNT 3.01 10^6/ul (4.20-5.40); RED CELL DISTRIBUTION WIDTH 14.8 % (11.5-14.5); WHITE BLOOD COUNT 16.1 10^3/ul (4.8-10.8)
[2016-10-21 06:19] LABS: CALCIUM 8.1 mg/dl (8.4-10.2); CREATININE 0.52 mg/dl (0.44-1.00); POTASSIUM 3.9 mmol/L (3.5-5.1)
[2016-10-21 07:25] VITALS: BP 110/67; RESP 16
[2016-10-21] MEDS: DOCUSATE SODIUM 100 MG CAP PO SCH ×2 (08:37→20:27)
[2016-10-21] MEDS: SENNA TAB PO SCH ×2 (08:37→20:26)
[2016-10-21] MEDS: SOD CHLORIDE 0.45% 1,000 ML IV SCH ×2 (08:38→21:00)
--- NOTE | 2016-10-21 13:36 | PN ---
Date/Time of Note Date/Time of Note DATE: 10/21/16 TIME: 13:33 Assessment/Plan Lines/Catheters IV Catheter Type (from Nrsg): Peripheral IV Assessment/Plan Assessment/Plan [facility] Progress Note Date of Service: 10/21/2016 Place of service: [facility] fourth floor Today's Assessment & Plan: Overall has remained stable and continuing to improve with postoperative abscess , s/p perc drain (x2). No indication for acute surgical intervention. Patient can likely be discharged home the next 24-48 hours on oral antimicrobials and close outpatient follow-up. I have also written for change of accordion bags to TIFFANIE bulbs for ease of care. Patient will need training on drain care as well as family and he would be very helpful for home health to get set up to assist with her care at home. Patient's urinary symptoms should further be investigated. Cultures so far only show Joann glabrata (10/17/2016). No indication for acute surgical intervention at the moment. I explained this in detail to the patient and answered all of her questions to the best of my ability. Patient appeared to understand and agreed with the plans. With above assessment, I've recommended the following for today: 1. Continue current cares 2. Keep in-house, but set up discharge for possibly 24-48 hours from a with home health 3. Continue broad-spectrum antimicrobials 4. Symptom control 5. Educated patient and family regarding drain care and set up home health in anticipation of discharge with drains in place 6. Further investigation of urinary symptoms and possible need for adjustment of antimicrobial therapy 7. Change accordion bag to TIFFANIE bulbs Thank you again for your great care of this very pleasant patient and wonderful family. If there are any questions, please feel free to call me at [phone]. Nature of presenting problem: High severity Please note that, given the multiple number of diagnoses or management options, the moderate amount and/or complexity of data needed to be reviewed, and I risk of complications and/or morbidity or mortality, this qualifies as moderate to high complexity type of decision-making. Disclaimer: Inadvertent spelling and grammatical errors are likely due to EHR/ dictation software use and do not reflect on the quality of delivered patient care. Also, please note that the electronic time recorded on this node does not necessarily reflect the actual time of the visit. Updated clinical summary: Patient is a very-pleasant and otherwise healthy 45-year-old lady without significant known comorbidities her past history, presenting to the emergency department at [facility] for signs and symptoms consistent with acute appendicitis as demonstrated by her history and physical, elevated white blood cell count to [address] scan findings possibly pointing to localized perforation of appendix with no drainable abscess. This is despite her relatively otherwise normal-appearing laboratory values. Status post an otherwise uncomplicated laparoscopic appendectomy was performed with findings of likely sealed perforation of appendix with presence of pus in the abdominal cavity at [facility] on 10/09/2016. Readmitted to [facility] 10/17/2016 with intraoperative abscess but no evidence of obvious bowel perforation or stool leakage. Status post drain placement (2) percutaneously to drain intra-abdominal fluid collections at [facility] 10/18/2016. Comorbidities: 1. Acute appendicitis with likely sealed perforation and presence of intra- abdominal pus. Status post an otherwise uncomplicated laparoscopic appendectomy was performed with findings of likely sealed perforation of appendix with presence of pus in the abdominal cavity at [facility] on 2016. 2. Hysterectomy for fibroids at [place] [address] Subjective: No major events or complaints; reported feeling better; serosanguineous fluid being drained; minimal abd pain and under control with medications; mild twinges in bilateral groin areas; also complaining of pain immediately prior to urination; no n/v/d; no sob or cp; also difficulty with urination; + flatus; + BM; + activity Objective: Vitals: See below I's & O's: See below Exam: GENERAL: On exam, the patient was lying in bed and appeared to be comfortable and in no acute distress. ABDOMEN: Soft, mildly tender and nondistended. Incisions are clean, dry and intact without any evidence of obvious erythema, edema, discharge, or hernia. Bilateral abdominal wall drains with serosanguineous output. There are no peritoneal signs or guarding. SKIN: Skin appears to be pink and feels warm to touch. NEUROLOGIC: Patient is awake, alert, and follows commands appropriately. Labs: See below Exam/Review of Systems Vital Signs Vitals Vital Signs Date Time Temp Pulse Resp B/P Pulse Ox O2 Delivery O2 Flow Rate FiO2 10/21/16 07:25 98.3 84 16 110/67 97 10/19/16 14:07 Room Air Intake and Output 10/20/16 10/20/16 10/21/16 15:00 23:00 07:00 Intake Total 270 ml 260 ml 1340 ml Output Total 80 ml Balance 270 ml 180 ml 1340 ml Results Result Diagram: 10/21/16 0511 10/21/16 0511 IVDAL ARROYO M.D. Oct 21, 2016 13:36
--- NOTE | 2016-10-21 14:41 | PN ---
Date/Time of Note Date/Time of Note DATE: 10/21/16 TIME: 14:40 Assessment/Plan VTE Prophylaxis VTE Prophylaxis Intervention: SCD's Lines/Catheters IV Catheter Type (from Nrs): Peripheral IV Assessment/Plan Chief Complaint/Hosp Course 1. Intrabdominal abscesses status post IR drainage - Continue drainage - IV zosyn - Dr Viera from surgery on board, plan for repeat CT abdomen today - ID consultation appreciated 2. Leukocytosis secondary #1-improved -Antibiotics 3. Anemia of inflammation SCDs for ppx Discharge planning: Anticipate DC home in 1-2 days, director case management to arrange for home health, patient may need IV antibiotics upon discharge Problems: Subjective 24 Hr Interval Summary Constitutional: no complaints Exam/Review of Systems Vital Signs Vitals Vital Signs Date Time Temp Pulse Resp B/P Pulse Ox O2 Delivery O2 Flow Rate FiO2 10/21/16 07:25 98.3 84 16 110/67 97 10/19/16 14:07 Room Air Intake and Output 10/20/16 10/20/16 10/21/16 15:00 23:00 07:00 Intake Total 270 ml 260 ml 1340 ml Output Total 80 ml Balance 270 ml 180 ml 1340 ml Exam Constitutional: alert, oriented Respiratory: clear to auscultation Cardiovascular: regular rate and rhythm Gastrointestinal: soft, No distended Musculoskeletal: nl extremities to inspection Results Result Diagram: 10/21/16 0511 10/21/16 0511 Results 24 hrs Laboratory Tests Test 10/21/16 05:11 White Blood Count 16.1 H Red Blood Count 3.01 L Hemoglobin 8.6 L Hematocrit 26.7 L Mean Corpuscular Volume 88.7 Mean Corpuscular Hemoglobin 28.6 L Mean Corpuscular Hemoglobin Concent 32.2 Red Cell Distribution Width 14.8 H Platelet Count 795 H Mean Platelet Volume 9.7 Neutrophils % 82.0 H Lymphocytes % 7.6 L Monocytes % 5.1 Eosinophils % 1.1 Basophils % 0.3 Nucleated Red Blood Cells % 0.6 H Neutrophils # 13.2 H Lymphocytes # 1.2 Monocytes # 0.8 Eosinophils # 0.2 Basophils # 0.1 Nucleated Red Blood Cells # 0.1 H Sodium Level 139 Potassium Level 3.9 Chloride Level 103 Carbon Dioxide Level 25 Anion Gap 15 Blood Urea Nitrogen 7 Creatinine 0.52 Glucose Level 109 Calcium Level 8.1 L Magnesium Level 2.0 Medications Medications Current Medications Piperacillin Sod/ Tazobactam Sod 100 ml @ 200 mls/hr Q6 IVPB Last administered on 10/21/16 12:16; Admin Dose 200 MLS/HR; Start 10/17/16 at 18:00 Sodium Chloride (1/2 NS) 1,000 ml @ 80 mls/hr [id number] IV Last administered on 10/21/16 08:38; Admin Dose 80 MLS/HR; Start 10/17/16 at 17:00 Morphine Sulfate (morphine) 4 mg Q4H PRN IV pain Last administered on 10/21/16 13:30; Admin Dose 4 MG; Start 10/17/16 at 19:50 Acetaminophen (Tylenol Tab) 650 mg Q6H PRN PO PAIN AND OR ELEVATED TEMP Last administered on 10/18/16 22:36; Admin Dose 650 MG; Start 10/17/16 at 20:00 Docusate Sodium (Colace) 100 mg BID PO Last administered on 10/21/16 08:37; Admin Dose 100 MG; Start 10/18/16 at 12:00 Senna (Senokot) 1 tab BID PO Last administered on 10/21/16 08:37; Admin Dose 1 TAB; Start 10/18/16 at 12:00 RUSH DENNY Oct 21, 2016 14:41
[2016-10-21 14:49] VITALS: BP 110/71; RESP 16
[2016-10-21] MEDS ORDERED: CASPOFUNGIN 70 MG in SOD CHLORIDE 0.9% 250 ML IVPB ONE (16:30)
--- NOTE | 2016-10-21 17:05 | CONS ---
Date/Time of Note Date/Time of Note DATE: 10/21/16 TIME: 16:31 Assessment/Plan Assessment/Plan Chief Complaint/Hosp Course ID PROGRESS NOTE CURRENT ABX: Zosyn #4 24 HOUR INTERVAL SUMMARY * Feeling better, no F/C/N/V/D * MICRO 10/18/16 CT drainage ABD abscess * (+)Bacteroides Fragilis * (+)E.coli WOUND CULTURE Final Organism 1 ESCHERICHIA COLI QUANTITY 3+ E COLI M.I.C. RX --------- --- AMPICILLIN >=32 R CEFAZOLIN R CEFOTAXIME S CIPROFLOXACIN 0.5 S GENTAMICIN <=1 S LEVOFLOXACIN 1 S TOBRAMYCIN <=1 S TRIMETHOPRIM/SULFAMETHOXAZOLE >=320 R Exam Constitutional: alert, oriented, well developed Head: atraumatic, normocephalic Eyes: EOMI, PERRL Respiratory: clear to auscultation, normal air movement Cardiovascular: nl pulses, regular rate and rhythm Gastrointestinal: (+)ABD drains intact Extremities: normal pulses Neurological: nl mental status, nl speech, nl strength ID ASSESSMENT 45 yo F admit with: 1. Sepsis 10/17 with fever 103.0 +tachycardia (HR 122-13), leukocytosis 2/2 => # 2 & #3 => RESOLVING * Afebrile x >72H * VSS * WBC down to 16.1 from 25.4 2. Intra-ABD abscess -> s/p CT Guided drainage on 10/18/16 * MICRO 10/18/16 CT drainage ABD abscess * (+)Bacteroides Fragilis * (+)E.coli WOUND CULTURE Final Organism 1 ESCHERICHIA COLI QUANTITY 3+ E COLI M.I.C. RX --------- --- AMPICILLIN >=32 R CEFAZOLIN R CEFOTAXIME S CIPROFLOXACIN 0.5 S GENTAMICIN <=1 S LEVOFLOXACIN 1 S TOBRAMYCIN <=1 S TRIMETHOPRIM/SULFAMETHOXAZOLE >=320 R 3. UTI vs early UTI -> Low colony count * 10/17/16 URINE CULTURE Final Organism 1 COLTEN GLABRATA COLONY COUNT 10,000 - 20,000 CFU/ml 4. s/p Hysterectomy for fibroids at [place] 2016 5. Hx of recent cute appendicitis with likely sealed perforation and presence of intra-abdominal pus. * s/p Lap-Apply & wash out 10/09/2016 CURRENT ABX: Zosyn #4 + Start Cancidas #1 for 2 days only ID RECOMMENDATIONS 1. Discharge planning: Anticipate DC home in 1-2 days, counseling case manager to arrange for home health, patient may need IV antibiotics upon discharge * Short course Cancidas to cover concer C.Glabrata low colony count UTI * May DC Cancidas after day #2 dose tomorrow 2. When cleared for DC home; patient may DC home 10/22/16 on PO ABX below: * Avelox 400mg PO daily x 10 days * Flagyl 250mg PO TID x 10 days REFERENCES 1. FDA Approves Avelox for Abdominal Infections https://www.[employer]/infectiousdisease/publichealth/2237 * The indication covers abscesses caused by E. coli, Bacteroides fragilis, Streptococcus anginosus, Enterococcus faecalis, Proteus mirabilis, Clostridium perfringens, Bacteroides thetaiotaomicron, or Peptostreptococcus species, 2.Bacteroides species http://www.antimicrobe.org/b85.asp * Metronidazole: Nitroimidazoles, including metronidazole, have a high degree of activity against Bacteroides, with MIC90 values < 1 g/ml (73). They are bactericidal and penetrate well into abscesses frequently making them the ideal candidates in therapy. . Problems: Consultation Date/Type/Reason Admit Date/Time Oct 17, 2016 at 13:50 Initial Consult Date 10/20/16 Type of Consultation: ID Exam/Review of Systems Vital Signs Vitals Vital Signs Date Time Temp Pulse Resp B/P Pulse Ox O2 Delivery O2 Flow Rate FiO2 10/21/16 14:49 98.7 83 16 110/71 99 10/19/16 14:07 Room Air Intake and Output 10/20/16 10/20/16 10/21/16 15:00 23:00 07:00 Intake Total 270 ml 260 ml 1340 ml Output Total 80 ml Balance 270 ml 180 ml 1340 ml Results Result Diagram: 10/21/16 0511 10/21/16 0511 Results 24 hrs Laboratory Tests Test 10/21/16 05:11 White Blood Count 16.1 H Red Blood Count 3.01 L Hemoglobin 8.6 L Hematocrit 26.7 L Mean Corpuscular Volume 88.7 Mean Corpuscular Hemoglobin 28.6 L Mean Corpuscular Hemoglobin Concent 32.2 Red Cell Distribution Width 14.8 H Platelet Count 795 H Mean Platelet Volume 9.7 Neutrophils % 82.0 H Lymphocytes % 7.6 L Monocytes % 5.1 Eosinophils % 1.1 Basophils % 0.3 Nucleated Red Blood Cells % 0.6 H Neutrophils # 13.2 H Lymphocytes # 1.2 Monocytes # 0.8 Eosinophils # 0.2 Basophils # 0.1 Nucleated Red Blood Cells # 0.1 H Sodium Level 139 Potassium Level 3.9 Chloride Level 103 Carbon Dioxide Level 25 Anion Gap 15 Blood Urea Nitrogen 7 Creatinine 0.52 Glucose Level 109 Calcium Level 8.1 L Magnesium Level 2.0 Medications Medications Current Medications Piperacillin Sod/ Tazobactam Sod 100 ml @ 200 mls/hr Q6 IVPB Last administered on 10/21/16 12:16; Admin Dose 200 MLS/HR; Start 10/17/16 at 18:00 Sodium Chloride (1/2 NS) 1,000 ml @ 80 mls/hr [id number] IV Last administered on 10/21/16 08:38; Admin Dose 80 MLS/HR; Start 10/17/16 at 17:00 Morphine Sulfate (morphine) 4 mg Q4H PRN IV pain Last administered on 10/21/16 13:30; Admin Dose 4 MG; Start 10/17/16 at 19:50 Acetaminophen (Tylenol Tab) 650 mg Q6H PRN PO PAIN AND OR ELEVATED TEMP Last administered on 10/18/16 22:36; Admin Dose 650 MG; Start 10/17/16 at 20:00 Docusate Sodium (Colace) 100 mg BID PO Last administered on 10/21/16 08:37; Admin Dose 100 MG; Start 10/18/16 at 12:00 Senna (Senokot) 1 tab BID PO Last administered on 10/21/16 08:37; Admin Dose 1 TAB; Start 10/18/16 at 12:00 JESUS LANGFORD NP Oct 21, 2016 16:42
[2016-10-21 19:56] VITALS: BP 100/58; RESP 18
[2016-10-22] MEDS: SOD CHLORIDE 0.45% 1,000 ML IV SCH ×3 (00:09→17:46)
[2016-10-22] MEDS: PIPER-TAZO 3.375 GM IV (PMX) 100 ML IVPB SCH ×4 (00:09→17:47)
[2016-10-22 02:10] VITALS: BP 109/68; RESP 18
[2016-10-22] MEDS: morphine 4 MG/ML VIAL IV PRN ×2 (03:43→18:52)
[2016-10-22 05:46] LABS: BASOPHILS % 0.2 % (0.0-2.0); EOSINOPHILS # 0.2 10^3/ul (0.0-0.5); EOSINOPHILS % 1.6 % (0.0-7.0); HEMOGLOBIN 8.9 g/dl (12.0-16.0); LYMPHOCYTES # 1.3 10^3/ul (0.8-2.9); LYMPHOCYTES % 9.9 % (15.0-51.0); MEAN CORPUSCULAR HEMOGLOBIN 28.7 pg (29.0-33.0); MEAN CORPUSCULAR HGB CONC 31.8 g/dl (32.0-37.0); MEAN CORPUSCULAR VOLUME 90.3 fl (82.0-101.0); MEAN PLATELET VOLUME 9.7 fl (7.4-10.4); MONOCYTE # 0.8 10^3/ul (0.3-0.9); MONOCYTES % 5.8 % (0.0-11.0); NEUTROPHIL # 10.2 10^3/ul (1.6-7.5); NUCLEATED RED BLOOD CELLS # 0.1 10^3/ul (0.0-0.0); NUCLEATED RED BLOOD CELLS% 0.7 /100WBC (0.0-0.0); PLATELET COUNT 801 10^3/UL (140-415); RED CELL DISTRIBUTION WIDTH 14.7 % (11.5-14.5)
[2016-10-22 06:04] LABS: POSITIVE DIFF @See below
[2016-10-22 06:09] LABS: CALCIUM 8.2 mg/dl (8.4-10.2); CREATININE 0.51 mg/dl (0.44-1.00); POTASSIUM 3.6 mmol/L (3.5-5.1)
[2016-10-22 07:27] VITALS: BP 110/68; RESP 16; RESP 18
[2016-10-22] MEDS: SENNA TAB PO SCH ×2 (08:38→20:27)
[2016-10-22] MEDS: DOCUSATE SODIUM 100 MG CAP PO SCH ×2 (08:38→20:27)
[2016-10-22] MEDS ORDERED: CASPOFUNGIN 70 MG in SOD CHLORIDE 0.9% 250 ML IVPB ONE (11:00)
--- NOTE | 2016-10-22 11:10 | PN ---
Date/Time of Note Date/Time of Note DATE: 10/22/16 TIME: 11:08 Assessment/Plan Lines/Catheters IV Catheter Type (from Nrsg): Peripheral IV Assessment/Plan Assessment/Plan [facility] Progress Note Date of Service: 10/22/2016 Place of service: [facility] fourth floor Today's Assessment & Plan: Overall has remained stable and continuing to improve with postoperative abscess , s/p perc drain (x2). No indication for acute surgical intervention. Still with some pain in the right lower quadrant and not able to discharge home. Patient can likely be discharged home the next 24-48 hours on oral antimicrobials and close outpatient follow-up. Patient will need training on drain care as well as family and he would be very helpful for home health to get set up to assist with her care at home. No indication for acute surgical intervention at the moment. I explained this in detail to the patient and answered all of her questions to the best of my ability. Patient appeared to understand and agreed with the plans. With above assessment, I've recommended the following for today: 1. Continue current cares 2. Keep in-house, but set up discharge for possibly 24-48 hours from a with home health 3. Continue broad-spectrum antimicrobials 4. Symptom control 5. Educated patient and family regarding drain care and set up home health in anticipation of discharge with drains in place Thank you again for your great care of this very pleasant patient and wonderful family. If there are any questions, please feel free to call me at [phone]. Nature of presenting problem: High severity Please note that, given the multiple number of diagnoses or management options, the moderate amount and/or complexity of data needed to be reviewed, and I risk of complications and/or morbidity or mortality, this qualifies as moderate to high complexity type of decision-making. Disclaimer: Inadvertent spelling and grammatical errors are likely due to EHR/ dictation software use and do not reflect on the quality of delivered patient care. Also, please note that the electronic time recorded on this node does not necessarily reflect the actual time of the visit. Updated clinical summary: Patient is a very-pleasant and otherwise healthy 45-year-old lady without significant known comorbidities her past history, presenting to the emergency department at [facility] for signs and symptoms consistent with acute appendicitis as demonstrated by her history and physical, elevated white blood cell count to [address] scan findings possibly pointing to localized perforation of appendix with no drainable abscess. This is despite her relatively otherwise normal-appearing laboratory values. Status post an otherwise uncomplicated laparoscopic appendectomy was performed with findings of likely sealed perforation of appendix with presence of pus in the abdominal cavity at [facility] on 10/09/2016. Readmitted to [facility] 10/17/2016 with intraoperative abscess but no evidence of obvious bowel perforation or stool leakage. Status post drain placement (2) percutaneously to drain intra-abdominal fluid collections at [facility] 10/18/2016. Comorbidities: 1. Acute appendicitis with likely sealed perforation and presence of intra- abdominal pus. Status post an otherwise uncomplicated laparoscopic appendectomy was performed with findings of likely sealed perforation of appendix with presence of pus in the abdominal cavity at [facility] on 2016. 2. Hysterectomy for fibroids at [place] [address] Subjective: No major events or complaints; reported feeling better; serosanguineous fluid being drained; minimal abd pain and under control with medications; no n/v/d; no sob or cp; also difficulty with urination; + flatus; + BM; + activity Objective: Vitals: See below I's & O's: See below Exam: GENERAL: On exam, the patient was lying in bed and appeared to be comfortable and in no acute distress. ABDOMEN: Soft, mildly tender and nondistended. Incisions are clean, dry and intact without any evidence of obvious erythema, edema, discharge, or hernia. Bilateral abdominal wall drains with serosanguineous output. There are no peritoneal signs or guarding. SKIN: Skin appears to be pink and feels warm to touch. NEUROLOGIC: Patient is awake, alert, and follows commands appropriately. Labs: See below Exam/Review of Systems Vital Signs Vitals Vital Signs Date Time Temp Pulse Resp B/P Pulse Ox O2 Delivery O2 Flow Rate FiO2 10/22/16 07:27 98.1 88 16 110/68 100 10/19/16 14:07 Room Air Intake and Output 10/21/16 10/21/16 10/22/16 15:00 23:00 07:00 Intake Total 300 ml 2046 ml 1344 ml Output Total 40 ml 50 ml Balance 300 ml 2006 ml 1294 ml Results Result Diagram: 10/22/16 0503 10/22/16 0503 VIDAL ARROYO M.D. Oct 22, 2016 11:10
[2016-10-22 15:58] VITALS: BP 115/71; RESP 16
[2016-10-22] MEDS ORDERED: CASPOFUNGIN 50 MG in SOD CHLORIDE 0.9% 250 ML IVPB SCH ×2 (16:30→18:00)
--- NOTE | 2016-10-22 16:43 | CONS ---
Date/Time of Note Date/Time of Note DATE: 10/22/16 TIME: 16:27 Assessment/Plan Assessment/Plan Chief Complaint/Hosp Course ID PROGRESS NOTE CURRENT ABX: Zosyn #5 +Cancidas #2 24 HOUR INTERVAL SUMMARY * A/A/O -> taking pos, passing gas, endorses pain in the RLEQ near drain site - - 2 drains present w/serosanguinous drainage * No fevers w/Tmax 13.0, WBC downtrend to 13.0 today, near normalization * I discussed with her plan to change to PO ABX in next 24-48H vs PICC Line and IV ABX, she prefers PO ABX * MICRO 10/18/16 CT drainage ABD abscess * (+)Bacteroides Fragilis * (+)E.coli WOUND CULTURE Final Organism 1 ESCHERICHIA COLI QUANTITY 3+ E COLI M.I.C. RX --------- --- AMPICILLIN >=32 R CEFAZOLIN R CEFOTAXIME S CIPROFLOXACIN 0.5 S GENTAMICIN <=1 S LEVOFLOXACIN 1 S TOBRAMYCIN <=1 S TRIMETHOPRIM/SULFAMETHOXAZOLE >=320 R Exam Constitutional: alert, oriented, well developed Head: atraumatic, normocephalic Eyes: EOMI, PERRL Respiratory: clear to auscultation, normal air movement Cardiovascular: nl pulses, regular rate and rhythm Gastrointestinal: (+)ABD drains intact x2 Extremities: normal pulses Neurological: nl mental status, nl speech, nl strength ID ASSESSMENT 45 yo F admit with: 1. Sepsis 10/17 with fever 103.0 +tachycardia (HR 122-13), leukocytosis 2/2 => # 2 & #3 => RESOLVING * Afebrile x >72H * VSS * WBC down to 16.1 from 25.4 2. Intra-ABD abscess -> s/p CT Guided drainage on 10/18/16 * MICRO 10/18/16 CT drainage ABD abscess * (+)Bacteroides Fragilis * (+)E.coli WOUND CULTURE Final Organism 1 ESCHERICHIA COLI QUANTITY 3+ E COLI M.I.C. RX --------- --- AMPICILLIN >=32 R CEFAZOLIN R CEFOTAXIME S CIPROFLOXACIN 0.5 S GENTAMICIN <=1 S LEVOFLOXACIN 1 S TOBRAMYCIN <=1 S TRIMETHOPRIM/SULFAMETHOXAZOLE >=320 R 3. UTI vs early UTI -> Low colony count * 10/17/16 URINE CULTURE Final Organism 1 COLTEN GLABRATA COLONY COUNT 10,000 - 20,000 CFU/ml 4. s/p Hysterectomy for fibroids at [facility] 2017 5. Hx of recent cute appendicitis with likely sealed perforation and presence of intra-abdominal pus. * s/p Lap-Apply & wash out 10/09/2016 CURRENT ABX: Zosyn #5 + Start Cancidas #2 = last day today ID RECOMMENDATIONS 1. Discharge planning: Anticipate DC home in 1-2 days per notes: * I discussed with her plan to change to PO ABX in next 24-48H vs PICC Line and IV ABX, she prefers PO ABX * Lengthy patient education @ bedside today including: * Side effect of ABX such as oral/dillan yeast infection redness, itching; ABX associated diarrhea -> report any sxs to provider. * Take ABX daily as Rx complete full course, f/u with OP surgery, primary for evaluation on/before end of ABX. * Flagyl common side effects include metallic taste in mouth, dyspepsia -- take with food such as bread. 2. When cleared for DC home; patient may DC home on PO ABX below: * Avelox 400mg PO daily x 10 days * Flagyl 250mg PO TID x 10 days REFERENCES 1. FDA Approves Avelox for Abdominal Infections https://www.[employer]/infectiousdisease/publichealth/2237 * The indication covers abscesses caused by E. coli, Bacteroides fragilis, Streptococcus anginosus, Enterococcus faecalis, Proteus mirabilis, Clostridium perfringens, Bacteroides thetaiotaomicron, or Peptostreptococcus species, 2.Bacteroides species http://www.antimicrobe.org/b85.asp * Metronidazole: Nitroimidazoles, including metronidazole, have a high degree of activity against Bacteroides, with MIC90 values < 1 g/ml (73). They are bactericidal and penetrate well into abscesses frequently making them the ideal candidates in therapy. . Problems: Consultation Date/Type/Reason Admit Date/Time Oct 17, 2016 at 13:50 Initial Consult Date 10/20/16 Type of Consultation: ID Exam/Review of Systems Vital Signs Vitals Vital Signs Date Time Temp Pulse Resp B/P Pulse Ox O2 Delivery O2 Flow Rate FiO2 10/22/16 15:58 99.0 88 16 115/71 97 10/19/16 14:07 Room Air Intake and Output 10/21/16 10/21/16 10/22/16 15:00 23:00 07:00 Intake Total 300 ml 2046 ml 1344 ml Output Total 40 ml 50 ml Balance 300 ml 2006 ml 1294 ml Results Result Diagram: 10/22/16 0503 10/22/16 0503 Results 24 hrs Laboratory Tests Test 10/22/16 05:03 White Blood Count 13.0 H Red Blood Count 3.10 L Hemoglobin 8.9 L Hematocrit 28.0 L Mean Corpuscular Volume 90.3 Mean Corpuscular Hemoglobin 28.7 L Mean Corpuscular Hemoglobin Concent 31.8 L Red Cell Distribution Width 14.7 H Platelet Count 801 H Mean Platelet Volume 9.7 Neutrophils % 78.0 H Lymphocytes % 9.9 L Monocytes % 5.8 Eosinophils % 1.6 Basophils % 0.2 Nucleated Red Blood Cells % 0.7 H Neutrophils # 10.2 H Lymphocytes # 1.3 Monocytes # 0.8 Eosinophils # 0.2 Basophils # 0.0 Nucleated Red Blood Cells # 0.1 H Sodium Level 139 Potassium Level 3.6 Chloride Level 100 Carbon Dioxide Level 25 Anion Gap 18 H Blood Urea Nitrogen 6 L Creatinine 0.51 Glucose Level 100 Calcium Level 8.2 L Medications Medications Current Medications Piperacillin Sod/ Tazobactam Sod 100 ml @ 200 mls/hr Q6 IVPB Last administered on 10/22/16 12:12; Admin Dose 200 MLS/HR; Start 10/17/16 at 18:00 Sodium Chloride (1/2 NS) 1,000 ml @ 80 mls/hr [id number] IV Last administered on 10/22/16 00:09; Admin Dose 80 MLS/HR; Start 10/17/16 at 17:00 Morphine Sulfate (morphine) 4 mg Q4H PRN IV pain Last administered on 10/22/16 03:43; Admin Dose 4 MG; Start 10/17/16 at 19:50 Acetaminophen (Tylenol Tab) 650 mg Q6H PRN PO PAIN AND OR ELEVATED TEMP Last administered on 10/18/16 22:36; Admin Dose 650 MG; Start 10/17/16 at 20:00 Docusate Sodium (Colace) 100 mg BID PO Last administered on 10/22/16 08:38; Admin Dose 100 MG; Start 10/18/16 at 12:00 Senna 1 tab 1 tab BID PO Last administered on 10/22/16 08:38; Admin Dose 1 TAB ; Start 10/18/16 at 12:00 Caspofungin/ Sodium Chloride (Cancidas/NS) 250 ml @ 250 mls/hr Q24H IVPB ; Start 10/22/16 at 18:00; Stop 10/22/16 at 18:59 JESUS LANGFORD NP Oct 22, 2016 16:43
--- NOTE | 2016-10-22 18:07 | PN ---
Date/Time of Note Date/Time of Note DATE: 10/22/16 TIME: 18:05 Assessment/Plan VTE Prophylaxis VTE Prophylaxis Intervention: SCD's Lines/Catheters IV Catheter Type (from Nrs): Peripheral IV Assessment/Plan Chief Complaint/Hosp Course 1. Intrabdominal abscesses status post IR drainage - Continue drainage - IV zosyn - Dr Viera from surgery on board, plan for repeat CT abdomen today - ID consultation appreciated 2. Leukocytosis secondary #1-improved -Antibiotics 3. Anemia of inflammation SCDs for ppx Discharge planning: Anticipate DC home tomorrow with p.o. antibiotics, bottle caser to arrange for home health Problems: Subjective 24 Hr Interval Summary Constitutional: no complaints Exam/Review of Systems Vital Signs Vitals Vital Signs Date Time Temp Pulse Resp B/P Pulse Ox O2 Delivery O2 Flow Rate FiO2 10/22/16 15:58 99.0 88 16 115/71 97 10/19/16 14:07 Room Air Intake and Output 10/21/16 10/21/16 10/22/16 15:00 23:00 07:00 Intake Total 300 ml 2046 ml 1344 ml Output Total 40 ml 50 ml Balance 300 ml 2006 ml 1294 ml Exam Constitutional: alert Respiratory: clear to auscultation Cardiovascular: regular rate and rhythm Gastrointestinal: soft, No distended Musculoskeletal: nl extremities to inspection Results Result Diagram: 10/22/16 0503 10/22/16 0503 Results 24 hrs Laboratory Tests Test 10/22/16 05:03 White Blood Count 13.0 H Red Blood Count 3.10 L Hemoglobin 8.9 L Hematocrit 28.0 L Mean Corpuscular Volume 90.3 Mean Corpuscular Hemoglobin 28.7 L Mean Corpuscular Hemoglobin Concent 31.8 L Red Cell Distribution Width 14.7 H Platelet Count 801 H Mean Platelet Volume 9.7 Neutrophils % 78.0 H Lymphocytes % 9.9 L Monocytes % 5.8 Eosinophils % 1.6 Basophils % 0.2 Nucleated Red Blood Cells % 0.7 H Neutrophils # 10.2 H Lymphocytes # 1.3 Monocytes # 0.8 Eosinophils # 0.2 Basophils # 0.0 Nucleated Red Blood Cells # 0.1 H Sodium Level 139 Potassium Level 3.6 Chloride Level 100 Carbon Dioxide Level 25 Anion Gap 18 H Blood Urea Nitrogen 6 L Creatinine 0.51 Glucose Level 100 Calcium Level 8.2 L Medications Medications Current Medications Piperacillin Sod/ Tazobactam Sod 100 ml @ 200 mls/hr Q6 IVPB Last administered on 10/22/16 17:47; Admin Dose 200 MLS/HR; Start 10/17/16 at 18:00 Sodium Chloride (1/2 NS) 1,000 ml @ 80 mls/hr [id number] IV Last administered on 10/22/16 17:46; Admin Dose 80 MLS/HR; Start 10/17/16 at 17:00 Morphine Sulfate (morphine) 4 mg Q4H PRN IV pain Last administered on 10/22/16 03:43; Admin Dose 4 MG; Start 10/17/16 at 19:50 Acetaminophen (Tylenol Tab) 650 mg Q6H PRN PO PAIN AND OR ELEVATED TEMP Last administered on 10/18/16 22:36; Admin Dose 650 MG; Start 10/17/16 at 20:00 Docusate Sodium (Colace) 100 mg BID PO Last administered on 10/22/16 08:38; Admin Dose 100 MG; Start 10/18/16 at 12:00 Senna 1 tab 1 tab BID PO Last administered on 10/22/16 08:38; Admin Dose 1 TAB ; Start 10/18/16 at 12:00 Caspofungin/ Sodium Chloride (Cancidas/NS) 250 ml @ 250 mls/hr Q24H IVPB ; Start 10/22/16 at 18:00; Stop 10/22/16 at 18:59 RUSH DENNY Oct 22, 2016 18:07
[2016-10-22 19:59] VITALS: BP 97/58; RESP 20
[2016-10-23] MEDS: PIPER-TAZO 3.375 GM IV (PMX) 100 ML IVPB SCH ×4 (00:03→17:55)
[2016-10-23 02:51] VITALS: BP 109/60; RESP 18
[2016-10-23] MEDS: morphine 4 MG/ML VIAL IV PRN ×3 (06:02→21:14)
[2016-10-23 06:46] LABS: BASOPHIL # 0.1 10^3/ul (0.0-0.1); BASOPHILS % 0.4 % (0.0-2.0); EOSINOPHILS # 0.2 10^3/ul (0.0-0.5); EOSINOPHILS % 1.3 % (0.0-7.0); HEMATOCRIT 27.3 % (37.0-47.0); HEMOGLOBIN 8.7 g/dl (12.0-16.0); LYMPHOCYTES # 1.2 10^3/ul (0.8-2.9); LYMPHOCYTES % 8.9 % (15.0-51.0); MEAN CORPUSCULAR HEMOGLOBIN 28.5 pg (29.0-33.0); MEAN CORPUSCULAR HGB CONC 31.9 g/dl (32.0-37.0); MEAN CORPUSCULAR VOLUME 89.5 fl (82.0-101.0); MEAN PLATELET VOLUME 9.7 fl (7.4-10.4); MONOCYTE # 0.7 10^3/ul (0.3-0.9); MONOCYTES % 5.2 % (0.0-11.0); NEUTROPHIL # 10.6 10^3/ul (1.6-7.5); NEUTROPHILS % 80.5 % (39.0-77.0); NUCLEATED RED BLOOD CELLS # 0.1 10^3/ul (0.0-0.0); NUCLEATED RED BLOOD CELLS% 0.7 /100WBC (0.0-0.0); PLATELET COUNT 816 10^3/UL (140-415); RED BLOOD COUNT 3.05 10^6/ul (4.20-5.40); RED CELL DISTRIBUTION WIDTH 14.9 % (11.5-14.5); WHITE BLOOD COUNT 13.2 10^3/ul (4.8-10.8)
[2016-10-23 07:13] LABS: CALCIUM 8.3 mg/dl (8.4-10.2); CREATININE 0.52 mg/dl (0.44-1.00); POTASSIUM 3.7 mmol/L (3.5-5.1)
[2016-10-23 07:59] VITALS: BP 101/65; RESP 18
[2016-10-23] MEDS: DOCUSATE SODIUM 100 MG CAP PO SCH ×2 (08:17→20:38)
[2016-10-23] MEDS: SENNA TAB PO SCH ×2 (08:17→20:38)
[2016-10-23] MEDS: SOD CHLORIDE 0.45% 1,000 ML IV SCH (11:30)
--- NOTE | 2016-10-23 13:17 | PN ---
Date/Time of Note Date/Time of Note DATE: 10/23/16 TIME: 13:16 Assessment/Plan VTE Prophylaxis VTE Prophylaxis Intervention: SCD's Lines/Catheters IV Catheter Type (from [facility]): Peripheral IV Assessment/Plan Chief Complaint/Hosp Course 1. Intrabdominal abscesses status post IR drainage - Continue drainage - IV zosyn - Dr Viera from surgery on board, plan for repeat CT abdomen today - ID consultation appreciated 2. Leukocytosis secondary #1-improved but still persists -Antibiotics 3. Anemia of inflammation SCDs for ppx Discharge planning: WBC still elevated, anticipate DC home tomorrow with p.o. antibiotics, continuous pillowcase cutter to arrange for home health Problems: Subjective 24 Hr Interval Summary Constitutional: no complaints Exam/Review of Systems Vital Signs Vitals Vital Signs Date Time Temp Pulse Resp B/P Pulse Ox O2 Delivery O2 Flow Rate FiO2 10/23/16 07:59 98.6 81 18 101/65 98 10/19/16 14:07 Room Air Intake and Output 10/22/16 10/22/16 10/23/16 15:00 23:00 07:00 Intake Total 2420 ml 1200 ml Output Total 15 ml 5 ml Balance 2405 ml 1195 ml Exam Constitutional: alert, oriented Respiratory: clear to auscultation Cardiovascular: regular rate and rhythm Gastrointestinal: soft, No distended Musculoskeletal: nl extremities to inspection Results Result Diagram: 10/23/16 0541 10/23/16 0541 Results 24 hrs Laboratory Tests Test 10/23/16 05:41 White Blood Count 13.2 H Red Blood Count 3.05 L Hemoglobin 8.7 L Hematocrit 27.3 L Mean Corpuscular Volume 89.5 Mean Corpuscular Hemoglobin 28.5 L Mean Corpuscular Hemoglobin Concent 31.9 L Red Cell Distribution Width 14.9 H Platelet Count 816 H Mean Platelet Volume 9.7 Neutrophils % 80.5 H Lymphocytes % 8.9 L Monocytes % 5.2 Eosinophils % 1.3 Basophils % 0.4 Nucleated Red Blood Cells % 0.7 H Neutrophils # 10.6 H Lymphocytes # 1.2 Monocytes # 0.7 Eosinophils # 0.2 Basophils # 0.1 Nucleated Red Blood Cells # 0.1 H Sodium Level 140 Potassium Level 3.7 Chloride Level 103 Carbon Dioxide Level 24 Anion Gap 17 H Blood Urea Nitrogen 6 L Creatinine 0.52 Glucose Level 104 Calcium Level 8.3 L Magnesium Level 2.0 Medications Medications Current Medications Piperacillin Sod/ Tazobactam Sod 100 ml @ 200 mls/hr Q6 IVPB Last administered on 10/23/16 11:29; Admin Dose 200 MLS/HR; Start 10/17/16 at 18:00 Sodium Chloride (1/2 NS) 1,000 ml @ 80 mls/hr [id number] IV Last administered on 10/23/16 11:30; Admin Dose 80 MLS/HR; Start 10/17/16 at 17:00 Morphine Sulfate (morphine) 4 mg Q4H PRN IV pain Last administered on 10/23/16 06:02; Admin Dose 4 MG; Start 10/17/16 at 19:50 Acetaminophen (Tylenol Tab) 650 mg Q6H PRN PO PAIN AND OR ELEVATED TEMP Last administered on 10/18/16 22:36; Admin Dose 650 MG; Start 10/17/16 at 20:00 Docusate Sodium (Colace) 100 mg BID PO Last administered on 10/23/16 08:17; Admin Dose 100 MG; Start 10/18/16 at 12:00 Senna (Senokot) 1 tab BID PO Last administered on 10/23/16 08:17; Admin Dose 1 TAB; Start 10/18/16 at 12:00 RUSH DENNY Oct 23, 2016 13:17
[2016-10-23 16:27] VITALS: BP 110/71; RESP 20
--- NOTE | 2016-10-23 19:25 | CONS ---
Date/Time of Note Date/Time of Note DATE: 10/23/16 TIME: 19:22 Assessment/Plan Assessment/Plan Chief Complaint/Hosp Course ID PROGRESS NOTE CURRENT ABX: Zosyn #56 +Cancidas #2 = completed 24 HOUR INTERVAL SUMMARY * She is doing OK, still weak, both drains still w/serosangunous drainage, taking small amt pos * Case d/w Dr. Anthony & Dr. Viera -- they want to keep observing * Yesterday she agreed to PO ABX in next 24-48H vs PICC Line and IV ABX, she prefers PO ABX * MICRO 10/18/16 CT drainage ABD abscess * (+)Bacteroides Fragilis * (+)E.coli WOUND CULTURE Final Organism 1 ESCHERICHIA COLI QUANTITY 3+ E COLI M.I.C. RX --------- --- AMPICILLIN >=32 R CEFAZOLIN R CEFOTAXIME S CIPROFLOXACIN 0.5 S GENTAMICIN <=1 S LEVOFLOXACIN 1 S TOBRAMYCIN <=1 S TRIMETHOPRIM/SULFAMETHOXAZOLE >=320 R Exam Constitutional: alert, oriented, well developed Head: atraumatic, normocephalic Eyes: EOMI, PERRL Respiratory: clear to auscultation, normal air movement Cardiovascular: nl pulses, regular rate and rhythm Gastrointestinal: (+)ABD drains intact x2 Extremities: normal pulses Neurological: nl mental status, nl speech, nl strength ID ASSESSMENT 45 yo F admit with: 1. Sepsis 10/17 with fever 103.0 +tachycardia (HR 122-13), leukocytosis 2/2 => # 2 & #3 => RESOLVING * Afebrile x >72H * VSS * WBC down to 16.1 from 25.4 2. Intra-ABD abscess -> s/p CT Guided drainage on 10/18/16 * MICRO 10/18/16 CT drainage ABD abscess * (+)Bacteroides Fragilis * (+)E.coli WOUND CULTURE Final Organism 1 ESCHERICHIA COLI QUANTITY 3+ E COLI M.I.C. RX --------- --- AMPICILLIN >=32 R CEFAZOLIN R CEFOTAXIME S CIPROFLOXACIN 0.5 S GENTAMICIN <=1 S LEVOFLOXACIN 1 S TOBRAMYCIN <=1 S TRIMETHOPRIM/SULFAMETHOXAZOLE >=320 R 3. UTI vs early UTI -> Low colony count * 10/17/16 URINE CULTURE Final Organism 1 COLTEN GLABRATA COLONY COUNT 10,000 - 20,000 CFU/ml 4. s/p Hysterectomy for fibroids at [facility] 2017 5. Hx of recent cute appendicitis with likely sealed perforation and presence of intra-abdominal pus. * s/p Lap-Apply & wash out 10/09/2016 CURRENT ABX: Zosyn #5 + Start Cancidas #2 = last day today ID RECOMMENDATIONS 1. Discharge planning: Anticipate DC home in 1-2 days == discussed w/Dr. Viera & Dr. Anthony keep her overnight and observe 2. When cleared for DC home; patient may DC home on PO ABX below: * Avelox 400mg PO daily x 10 days * Flagyl 250mg PO TID x 10 days REFERENCES 1. FDA Approves Avelox for Abdominal Infections https://www.[employer]/infectiousdisease/publichealth/2237 * The indication covers abscesses caused by E. coli, Bacteroides fragilis, Streptococcus anginosus, Enterococcus faecalis, Proteus mirabilis, Clostridium perfringens, Bacteroides thetaiotaomicron, or Peptostreptococcus species, 2.Bacteroides species http://www.antimicrobe.org/b85.asp * Metronidazole: Nitroimidazoles, including metronidazole, have a high degree of activity against Bacteroides, with MIC90 values < 1 g/ml (73). They are bactericidal and penetrate well into abscesses frequently making them the ideal candidates in therapy. . Problems: Consultation Date/Type/Reason Admit Date/Time Oct 17, 2016 at 13:50 Initial Consult Date 10/20/16 Type of Consultation: ID Exam/Review of Systems Vital Signs Vitals Vital Signs Date Time Temp Pulse Resp B/P Pulse Ox O2 Delivery O2 Flow Rate FiO2 10/23/16 16:27 98.6 84 20 110/71 99 10/19/16 14:07 Room Air Intake and Output 10/22/16 10/22/16 10/23/16 15:00 23:00 07:00 Intake Total 2420 ml 1200 ml Output Total 15 ml 5 ml Balance 2405 ml 1195 ml Results Result Diagram: 10/23/16 0541 10/23/16 0541 Results 24 hrs Laboratory Tests Test 10/23/16 05:41 White Blood Count 13.2 H Red Blood Count 3.05 L Hemoglobin 8.7 L Hematocrit 27.3 L Mean Corpuscular Volume 89.5 Mean Corpuscular Hemoglobin 28.5 L Mean Corpuscular Hemoglobin Concent 31.9 L Red Cell Distribution Width 14.9 H Platelet Count 816 H Mean Platelet Volume 9.7 Neutrophils % 80.5 H Lymphocytes % 8.9 L Monocytes % 5.2 Eosinophils % 1.3 Basophils % 0.4 Nucleated Red Blood Cells % 0.7 H Neutrophils # 10.6 H Lymphocytes # 1.2 Monocytes # 0.7 Eosinophils # 0.2 Basophils # 0.1 Nucleated Red Blood Cells # 0.1 H Sodium Level 140 Potassium Level 3.7 Chloride Level 103 Carbon Dioxide Level 24 Anion Gap 17 H Blood Urea Nitrogen 6 L Creatinine 0.52 Glucose Level 104 Calcium Level 8.3 L Magnesium Level 2.0 Medications Medications Current Medications Piperacillin Sod/ Tazobactam Sod (Zosyn 3.375gm/ 100 ml (Pmx)) 100 ml @ 200 mls /hr Q6 IVPB Last administered on 10/23/16 17:55; Admin Dose 200 MLS/HR; Start 10/17/16 at 18:00 Morphine Sulfate (morphine) 4 mg Q4H PRN IV pain Last administered on 10/23/16 13:30; Admin Dose 4 MG; Start 10/17/16 at 19:50 Acetaminophen (Tylenol Tab) 650 mg Q6H PRN PO PAIN AND OR ELEVATED TEMP Last administered on 10/18/16 22:36; Admin Dose 650 MG; Start 10/17/16 at 20:00 Docusate Sodium (Colace) 100 mg BID PO Last administered on 10/23/16 08:17; Admin Dose 100 MG; Start 10/18/16 at 12:00 Senna (Senokot) 1 tab BID PO Last administered on 10/23/16 08:17; Admin Dose 1 TAB; Start 10/18/16 at 12:00 JESUS LANGFORD NP Oct 23, 2016 19:25
[2016-10-23 19:54] VITALS: BP 110/67; RESP 19
--- NOTE | 2016-10-23 21:31 | PN ---
Date/Time of Note Date/Time of Note DATE: 10/23/16 TIME: 21:21 Assessment/Plan Lines/Catheters IV C[facility]ter Type (from [facility]): [place] Assessment/Plan Assessment/Plan [facility] Progress Note Date of Service: 10/23/2016 Place of service: [facility] fourth floor Today's Assessment & Plan: Overall has remained stable and continuing to improve with postoperative abscess , s/p perc drain (x2). No indication for acute surgical intervention. Given persisting abdominal discomfort and slight elevation of WBC and high risk of further issues with infection, I recommended one more day inhouse. No indication for acute surgical intervention at the moment. I explained this in detail to the patient and answered all of her questions to the best of my ability. Patient appeared to understand and agreed with the plans. With above assessment, I've recommended the following for today: 1. Continue current cares 2. Keep in-house one more day, but set up discharge for possibly 24-48 hours from now with home health 3. Continue broad-spectrum antimicrobials 4. Symptom control 5. Educated patient and family regarding drain care and set up home health in anticipation of discharge with drains in place Thank you again for your great care of this very pleasant patient and wonderful family. If there are any questions, please feel free to call me at [phone]. Nature of presenting problem: High severity Please note that, given the multiple number of diagnoses or management options, the moderate amount and/or complexity of data needed to be reviewed, and I risk of complications and/or morbidity or mortality, this qualifies as moderate to high complexity type of decision-making. Disclaimer: Inadvertent spelling and grammatical errors are likely due to EHR/ dictation software use and do not reflect on the quality of delivered patient care. Also, please note that the electronic time recorded on this node does not necessarily reflect the actual time of the visit. Updated clinical summary: Patient is a very-pleasant and otherwise healthy 45-year-old lady without significant known comorbidities her past history, presenting to the emergency department at [facility] for signs and symptoms consistent with acute appendicitis as demonstrated by her history and physical, elevated white blood cell count to [address] scan findings possibly pointing to localized perforation of appendix with no drainable abscess. This is despite her relatively otherwise normal-appearing laboratory values. Status post an otherwise uncomplicated laparoscopic appendectomy was performed with findings of likely sealed perforation of appendix with presence of pus in the abdominal cavity at [facility] on 10/09/2016. Readmitted to [facility] 10/17/2016 with intraoperative abscess but no evidence of obvious bowel perforation or stool leakage. Status post drain placement (2) percutaneously to drain intra-abdominal fluid collections at [facility] 10/18/2016. Comorbidities: 1. Acute appendicitis with likely sealed perforation and presence of intra- abdominal pus. Status post an otherwise uncomplicated laparoscopic appendectomy was performed with findings of likely sealed perforation of appendix with presence of pus in the abdominal cavity at [facility] on 2016. 2. Hysterectomy for fibroids at [place] [id number] Subjective: No major events or complaints; reported feeling better; serosanguineous fluid being drained; minimal abd pain, but still with discomfort in the RLQ; appears under control with medications; no n/v/d; no sob or cp; also difficulty with urination; + flatus; + BM; + activity Objective: Vitals: See below I's & O's: See below Exam: GENERAL: On exam, the patient was lying in bed and appeared to be comfortable and in no acute distress. ABDOMEN: Soft, mildly tender and nondistended. Incisions are clean, dry and intact without any evidence of obvious erythema, edema, discharge, or hernia. Bilateral abdominal wall drains with serosanguineous output. There are no peritoneal signs or guarding. SKIN: Skin appears to be pink and feels warm to touch. NEUROLOGIC: Patient is awake, alert, and follows commands appropriately. Labs: See below Exam/Review of Systems Vital Signs Vitals Vital Signs Date Time Temp Pulse Resp B/P Pulse Ox O2 Delivery O2 Flow Rate FiO2 10/23/16 19:54 98.1 79 19 110/67 98 10/19/16 14:07 Room Air Intake and Output 10/22/16 10/22/16 10/23/16 15:00 23:00 07:00 Intake Total 2420 ml 1200 ml Output Total 15 ml 5 ml Balance 2405 ml 1195 ml Results Result Diagram: 10/23/16 0541 10/23/16 0541 VIDAL ARROYO M.D. Oct 23, 2016 21:31
[2016-10-24] MEDS: PIPER-TAZO 3.375 GM IV (PMX) 100 ML IVPB SCH ×4 (00:19→18:40)
[2016-10-24 02:24] VITALS: BP 110/66; RESP 20
[2016-10-24 05:34] LABS: BASOPHILS % 0.4 % (0.0-2.0); EOSINOPHILS # 0.2 10^3/ul (0.0-0.5); EOSINOPHILS % 1.6 % (0.0-7.0); HEMATOCRIT 28.1 % (37.0-47.0); HEMOGLOBIN 8.8 g/dl (12.0-16.0); LYMPHOCYTES % 9.1 % (15.0-51.0); MEAN CORPUSCULAR HEMOGLOBIN 27.8 pg (29.0-33.0); MEAN CORPUSCULAR HGB CONC 31.3 g/dl (32.0-37.0); MEAN CORPUSCULAR VOLUME 88.9 fl (82.0-101.0); MEAN PLATELET VOLUME 9.6 fl (7.4-10.4); MONOCYTE # 0.7 10^3/ul (0.3-0.9); MONOCYTES % 5.8 % (0.0-11.0); NEUTROPHIL # 8.9 10^3/ul (1.6-7.5); NEUTROPHILS % 78.5 % (39.0-77.0); NUCLEATED RED BLOOD CELLS # 0.1 10^3/ul (0.0-0.0); NUCLEATED RED BLOOD CELLS% 0.6 /100WBC (0.0-0.0); PLATELET COUNT 803 10^3/UL (140-415); RED BLOOD COUNT 3.16 10^6/ul (4.20-5.40); RED CELL DISTRIBUTION WIDTH 15.3 % (11.5-14.5); WHITE BLOOD COUNT 11.3 10^3/ul (4.8-10.8)
[2016-10-24 07:27] LABS: CALCIUM 8.2 mg/dl (8.4-10.2); CREATININE 0.47 mg/dl (0.44-1.00); POTASSIUM 3.6 mmol/L (3.5-5.1)
[2016-10-24 08:31] VITALS: BP 109/70; RESP 16
[2016-10-24] MEDS: DOCUSATE SODIUM 100 MG CAP PO SCH ×2 (09:00→21:03)
[2016-10-24] MEDS: SENNA TAB PO SCH ×2 (09:00→21:03)
--- NOTE | 2016-10-24 12:01 | PN ---
Date/Time of Note Date/Time of Note DATE: 10/24/16 TIME: 12:00 Assessment/Plan VTE Prophylaxis VTE Prophylaxis Intervention: SCD's Lines/Catheters IV C[facility]ter Type (from [facility]): Saline Lock Assessment/Plan Chief Complaint/Hosp Course 1. Intrabdominal abscesses status post IR drainage - Continue drainage - IV zosyn - Dr Viera from surgery on board, plan for repeat CT abdomen today - ID consultation appreciated 2. Leukocytosis secondary #1-improved but still persists -Antibiotics 3. Anemia of inflammation SCDs for ppx Discharge planning: WBC still elevated but improving, anticipate DC home tomorrow with p.o. antibiotics if leukocytosis resolved, telephonic case manager to arrange for home health Problems: Subjective 24 Hr Interval Summary Constitutional: no complaints Exam/Review of Systems Vital Signs Vitals Vital Signs Date Time Temp Pulse Resp B/P Pulse Ox O2 Delivery O2 Flow Rate FiO2 10/24/16 08:31 99.0 94 16 109/70 96 Intake and Output 10/23/16 10/23/16 10/24/16 15:00 23:00 07:00 Intake Total 180 ml 100 ml 200 ml Output Total 22 ml 13 ml Balance 180 ml 78 ml 187 ml Exam Constitutional: alert, oriented Respiratory: clear to auscultation Cardiovascular: regular rate and rhythm Gastrointestinal: soft, No distended Musculoskeletal: nl extremities to inspection Results Result Diagram: 10/24/16 0445 10/24/16 0445 Results 24 hrs Laboratory Tests Test 10/24/16 04:45 White Blood Count 11.3 H Red Blood Count 3.16 L Hemoglobin 8.8 L Hematocrit 28.1 L Mean Corpuscular Volume 88.9 Mean Corpuscular Hemoglobin 27.8 L Mean Corpuscular Hemoglobin Concent 31.3 L Red Cell Distribution Width 15.3 H Platelet Count 803 H Mean Platelet Volume 9.6 Neutrophils % 78.5 H Lymphocytes % 9.1 L Monocytes % 5.8 Eosinophils % 1.6 Basophils % 0.4 Nucleated Red Blood Cells % 0.6 H Neutrophils # 8.9 H Lymphocytes # 1.0 Monocytes # 0.7 Eosinophils # 0.2 Basophils # 0.0 Nucleated Red Blood Cells # 0.1 H Sodium Level 139 Potassium Level 3.6 Chloride Level 101 Carbon Dioxide Level 25 Anion Gap 17 H Blood Urea Nitrogen 5 L Creatinine 0.47 Glucose Level 96 Calcium Level 8.2 L Medications Medications Current Medications Piperacillin Sod/ Tazobactam Sod (Zosyn 3.375gm/ 100 ml (Pmx)) 100 ml @ 200 mls /hr Q6 IVPB Last administered on 10/24/16 05:31; Admin Dose 200 MLS/HR; Start 10/17/16 at 18:00 Morphine Sulfate (morphine) 4 mg Q4H PRN IV pain Last administered on 10/23/16 21:14; Admin Dose 4 MG; Start 10/17/16 at 19:50 Acetaminophen (Tylenol Tab) 650 mg Q6H PRN PO PAIN AND OR ELEVATED TEMP Last administered on 10/18/16 22:36; Admin Dose 650 MG; Start 10/17/16 at 20:00 Docusate Sodium (Colace) 100 mg BID PO Last administered on 10/23/16 20:38; Admin Dose 100 MG; Start 10/18/16 at 12:00 Senna (Senokot) 1 tab BID PO Last administered on 10/23/16 20:38; Admin Dose 1 TAB; Start 10/18/16 at 12:00 RUSH DENNY Oct 24, 2016 12:01
--- NOTE | 2016-10-24 15:36 | CONS ---
Date/Time of Note Date/Time of Note DATE: 10/24/16 TIME: 15:31 Assessment/Plan Assessment/Plan Chief Complaint/Hosp Course ID PROGRESS NOTE CURRENT ABX: Zosyn #7 s/p Cancidas #2 => dc 10/23 24 HOUR INTERVAL SUMMARY * A/A/O -- family visiting, still weak, feeling better, drains in place w/ serosanguinous drainage, * Tmax 99.0, WBC down to 11.3 -- Taking PO's * MICRO 10/18/16 CT drainage ABD abscess * (+)Bacteroides Fragilis * (+)E.coli WOUND CULTURE Final Exam Constitutional: alert, oriented, well developed Head: atraumatic, normocephalic Eyes: EOMI, PERRL Respiratory: clear to auscultation, normal air movement Cardiovascular: nl pulses, regular rate and rhythm Gastrointestinal: (+)ABD drains intact x2 Extremities: normal pulses Neurological: nl mental status, nl speech, nl strength ID ASSESSMENT 45 yo F admit with: 1. Sepsis 10/17 with fever 103.0 +tachycardia (HR 122-13), leukocytosis 2/2 => # 2 & #3 => RESOLVING * Afebrile x >72H * VSS * WBC down to 11.3 from 25.4 2. Intra-ABD abscess -> s/p CT Guided drainage on 10/18/16 * MICRO 10/18/16 CT drainage ABD abscess * (+)Bacteroides Fragilis * (+)E.coli WOUND CULTURE Final Organism 1 ESCHERICHIA COLI QUANTITY 3+ E COLI M.I.C. RX --------- --- AMPICILLIN >=32 R CEFAZOLIN R CEFOTAXIME S CIPROFLOXACIN 0.5 S GENTAMICIN <=1 S LEVOFLOXACIN 1 S TOBRAMYCIN <=1 S TRIMETHOPRIM/SULFAMETHOXAZOLE >=320 R 3. UTI vs early UTI -> Low colony count * 10/17/16 URINE CULTURE Final Organism 1 COLTEN GLABRATA COLONY COUNT 10,000 - 20,000 CFU/ml 4. s/p Hysterectomy for fibroids at [facility] 2016 5. Hx of recent cute appendicitis with likely sealed perforation and presence of intra-abdominal pus. * s/p Lap-Apply & wash out 10/09/2016 CURRENT ABX: Zosyn #7 s/p Cancidas #2 ID RECOMMENDATIONS 1. Discharge planning: Anticipate DC home in 1-2 days == discussed w/Dr. Viera & Dr. Anthony keep her overnight and observe 2. When cleared for DC home; patient may DC home on PO ABX below: * Avelox 400mg PO daily x 10 days * Flagyl 250mg PO TID x 10 days REFERENCES 1. FDA Approves Avelox for Abdominal Infections https://www.UBIKOD/infectiousdisease/publichealth/2237 * The indication covers abscesses caused by E. coli, Bacteroides fragilis, Streptococcus anginosus, Enterococcus faecalis, Proteus mirabilis, Clostridium perfringens, Bacteroides thetaiotaomicron, or Peptostreptococcus species, 2.Bacteroides species http://www.antimicrobe.org/b85.asp * Metronidazole: Nitroimidazoles, including metronidazole, have a high degree of activity against Bacteroides, with MIC90 values < 1 g/ml (73). They are bactericidal and penetrate well into abscesses frequently making them the ideal candidates in therapy. . Problems: Consultation Date/Type/Reason Admit Date/Time Oct 17, 2016 at 13:50 Initial Consult Date 10/20/16 Type of Consultation: ID Exam/Review of Systems Vital Signs Vitals Vital Signs Date Time Temp Pulse Resp B/P Pulse Ox O2 Delivery O2 Flow Rate FiO2 10/24/16 08:31 99.0 94 16 109/70 96 Intake and Output 10/23/16 10/23/16 10/24/16 15:00 23:00 07:00 Intake Total 180 ml 100 ml 200 ml Output Total 22 ml 13 ml Balance 180 ml 78 ml 187 ml Results Result Diagram: 10/24/16 0445 10/24/16 0445 Results 24 hrs Laboratory Tests Test 10/24/16 04:45 White Blood Count 11.3 H Red Blood Count 3.16 L Hemoglobin 8.8 L Hematocrit 28.1 L Mean Corpuscular Volume 88.9 Mean Corpuscular Hemoglobin 27.8 L Mean Corpuscular Hemoglobin Concent 31.3 L Red Cell Distribution Width 15.3 H Platelet Count 803 H Mean Platelet Volume 9.6 Neutrophils % 78.5 H Lymphocytes % 9.1 L Monocytes % 5.8 Eosinophils % 1.6 Basophils % 0.4 Nucleated Red Blood Cells % 0.6 H Neutrophils # 8.9 H Lymphocytes # 1.0 Monocytes # 0.7 Eosinophils # 0.2 Basophils # 0.0 Nucleated Red Blood Cells # 0.1 H Sodium Level 139 Potassium Level 3.6 Chloride Level 101 Carbon Dioxide Level 25 Anion Gap 17 H Blood Urea Nitrogen 5 L Creatinine 0.47 Glucose Level 96 Calcium Level 8.2 L Medications Medications Current Medications Piperacillin Sod/ Tazobactam Sod (Zosyn 3.375gm/ 100 ml (Pmx)) 100 ml @ 200 mls /hr Q6 IVPB Last administered on 10/24/16 12:27; Admin Dose 200 MLS/HR; Start 10/17/16 at 18:00 Morphine Sulfate (morphine) 4 mg Q4H PRN IV pain Last administered on 10/23/16 21:14; Admin Dose 4 MG; Start 10/17/16 at 19:50 Acetaminophen (Tylenol Tab) 650 mg Q6H PRN PO PAIN AND OR ELEVATED TEMP Last administered on 10/18/16 22:36; Admin Dose 650 MG; Start 10/17/16 at 20:00 Docusate Sodium (Colace) 100 mg BID PO Last administered on 10/23/16 20:38; Admin Dose 100 MG; Start 10/18/16 at 12:00 Senna (Senokot) 1 tab BID PO Last administered on 10/23/16 20:38; Admin Dose 1 TAB; Start 10/18/16 at 12:00 JESUS LANGFORD NP Oct 24, 2016 15:35
[2016-10-24] MEDS: morphine 4 MG/ML VIAL IV PRN (15:55)
[2016-10-24 16:11] VITALS: BP 120/69; RESP 16
--- NOTE | 2016-10-24 16:58 | PN ---
Date/Time of Note Date/Time of Note DATE: 10/24/16 TIME: 16:57 Assessment/Plan Lines/Catheters IV Catheter Type (from [facility]): Saline Lock Assessment/Plan Assessment/Plan [facility] Progress Note Date of Service: 10/24/2016 Place of service: [facility] fourth floor Today's Assessment & Plan: Overall has remained stable and continuing to improve with postoperative abscess , s/p perc drain (x2). No indication for acute surgical intervention. White blood cell count still not completely normal and there is still that of discomfort in the right lower quadrant. Drain outputs appeared to be benign. No indication for acute surgical intervention at the moment. Agree that the patient would benefit from 1 more day in the hospital. I explained this in detail to the patient and answered all of her questions to the best of my ability. Patient appeared to understand and agreed with the plans. With above assessment, I've recommended the following for today: 1. Continue current cares 2. Keep in-house one more day, but set up discharge for possibly 24-48 hours from now with home health 3. Continue broad-spectrum antimicrobials 4. Symptom control 5. Educated patient and family regarding drain care and set up home health in anticipation of discharge with drains in place Thank you again for your great care of this very pleasant patient and wonderful family. If there are any questions, please feel free to call me at [phone]. Nature of presenting problem: High severity Please note that, given the multiple number of diagnoses or management options, the moderate amount and/or complexity of data needed to be reviewed, and I risk of complications and/or morbidity or mortality, this qualifies as moderate to high complexity type of decision-making. Disclaimer: Inadvertent spelling and grammatical errors are likely due to EHR/ dictation software use and do not reflect on the quality of delivered patient care. Also, please note that the electronic time recorded on this node does not necessarily reflect the actual time of the visit. Updated clinical summary: Patient is a very-pleasant and otherwise healthy 45-year-old lady without significant known comorbidities her past history, presenting to the emergency department at [facility] for signs and symptoms consistent with acute appendicitis as demonstrated by her history and physical, elevated white blood cell count to [address] scan findings possibly pointing to localized perforation of appendix with no drainable abscess. This is despite her relatively otherwise normal-appearing laboratory values. Status post an otherwise uncomplicated laparoscopic appendectomy was performed with findings of likely sealed perforation of appendix with presence of pus in the abdominal cavity at [facility] on 10/09/2016. Readmitted to [facility] 10/17/2016 with intraoperative abscess but no evidence of obvious bowel perforation or stool leakage. Status post drain placement (2) percutaneously to drain intra-abdominal fluid collections at [facility] 10/18/2016. Comorbidities: 1. Acute appendicitis with likely sealed perforation and presence of intra- abdominal pus. Status post an otherwise uncomplicated laparoscopic appendectomy was performed with findings of likely sealed perforation of appendix with presence of pus in the abdominal cavity at [facility] on 2016. 2. Hysterectomy for fibroids at [place] [id number] Subjective: No major events or complaints; reported feeling better; serosanguineous fluid being drained; minimal abd pain, but still with discomfort in the RLQ; appears under control with medications; no n/v/d; no sob or cp; also difficulty with urination; + flatus; + BM; + activity; took a shower today Objective: Vitals: See below I's & O's: See below Exam: GENERAL: On exam, the patient was lying in bed and appeared to be comfortable and in no acute distress. ABDOMEN: Soft, mildly tender and nondistended. Incisions are clean, dry and intact without any evidence of obvious erythema, edema, discharge, or hernia. Bilateral abdominal wall drains with serosanguineous trending towards more serous output. There are no peritoneal signs or guarding. SKIN: Skin appears to be pink and feels warm to touch. NEUROLOGIC: Patient is awake, alert, and follows commands appropriately. Labs: See below Exam/Review of Systems Vital Signs Vitals Vital Signs Date Time Temp Pulse Resp B/P Pulse Ox O2 Delivery O2 Flow Rate FiO2 10/24/16 16:11 99.2 94 16 120/69 98 Intake and Output 10/23/16 10/23/16 10/24/16 15:00 23:00 07:00 Intake Total 180 ml 100 ml 200 ml Output Total 22 ml 13 ml Balance 180 ml 78 ml 187 ml Results Result Diagram: 10/24/16 0445 10/24/16 0445 VIDAL ARROYO M.D. Oct 24, 2016 16:58
[2016-10-24 19:18] VITALS: BP 104/68; RESP 20
[2016-10-25] MEDS: PIPER-TAZO 3.375 GM IV (PMX) 100 ML IVPB SCH ×3 (00:14→13:14)
[2016-10-25 01:49] VITALS: BP 108/64; RESP 20
[2016-10-25 05:55] LABS: BASOPHIL # 0.1 10^3/ul (0.0-0.1); BASOPHILS % 0.6 % (0.0-2.0); EOSINOPHILS # 0.2 10^3/ul (0.0-0.5); HEMATOCRIT 30.2 % (37.0-47.0); HEMOGLOBIN 9.5 g/dl (12.0-16.0); LYMPHOCYTES % 11.8 % (15.0-51.0); MEAN CORPUSCULAR HEMOGLOBIN 28.1 pg (29.0-33.0); MEAN CORPUSCULAR HGB CONC 31.5 g/dl (32.0-37.0); MEAN CORPUSCULAR VOLUME 89.3 fl (82.0-101.0); MEAN PLATELET VOLUME 9.6 fl (7.4-10.4); MONOCYTE # 0.6 10^3/ul (0.3-0.9); MONOCYTES % 6.9 % (0.0-11.0); NEUTROPHIL # 6.6 10^3/ul (1.6-7.5); NEUTROPHILS % 74.6 % (39.0-77.0); NUCLEATED RED BLOOD CELLS # 0.1 10^3/ul (0.0-0.0); NUCLEATED RED BLOOD CELLS% 0.6 /100WBC (0.0-0.0); PLATELET COUNT 859 10^3/UL (140-415); RED BLOOD COUNT 3.38 10^6/ul (4.20-5.40); RED CELL DISTRIBUTION WIDTH 15.4 % (11.5-14.5); WHITE BLOOD COUNT 8.8 10^3/ul (4.8-10.8)
[2016-10-25 08:17] VITALS: BP 104/70; RESP 18
[2016-10-25] MEDS: SENNA TAB PO SCH (08:36)
[2016-10-25] MEDS: DOCUSATE SODIUM 100 MG CAP PO SCH (08:36)
--- NOTE | 2016-10-25 10:11 | PDOCDIS ---
Discharge Instructions DIAGNOSIS Discharge Diagnosis Intra-abdominal abscess. Status post drainage. CONDITION Patient Condition: Stable HOME CARE INSTRUCTIONS: Special Diet: REGULAR FOLLOW UP/APPOINTMENTS Follow-up Plan Shahriar Viera MD [facility] General Surgery Office Address [address] [place] [address] [place], [place] [id number] Office OTHER ORDERS: Other Orders: 1. Take pain medications as needed. Complete the course of antibiotics. 2. Empty the drains as instructed. 3. Regular diet as tolerated. 4. Follow-up with Dr. Viera in [address] Viera or go to the nearest emergency room if you continue to have significant abdominal pain despite taking pain medications, if you have persistent fevers, persistent nausea and vomiting, or any other unusual signs/ symptoms. 6. Activities as tolerated. Protect the drains from getting wet. EMILY MALONE NP Oct 25, 2016 10:11
[2016-10-25] MEDS ORDERED: METR250T19 PO (10:29)
[2016-10-25] MEDS ORDERED: MOXI400T PO (10:29)
[2016-10-25] MEDS ORDERED: TRAM50TA2 PO (10:33)
[2016-10-25 12:10] LABS: CALCIUM 8.7 mg/dl (8.4-10.2); CREATININE 0.5 mg/dl (0.44-1.00)
[2016-10-25 13:34] VITALS: BP 106/59; RESP 18
--- NOTE | 2016-10-25 14:01 | DS ---
Date/Time of Note Date/Time of Note DATE: 10/25/16 TIME: 14:00 Discharge Summary Admission/Discharge Info Admit Date/Time Oct 17, 2016 at 13:50 Discharge Date/Time Discharge Diagnosis 1. Intra-abdominal abscesses. Status post drainage. 2. Sepsis secondary to intra-abdominal abscess along with urinary tract infection. 3. Recent acute appendicitis with likely sealed perforation and presence of intra-abdominal pus status post laparoscopic appendectomy on 10/09/2016. 4. History of fibroids. Status post hysterectomy. Patient Condition: Stable Consults 1. Shahriar Viear MD, General Surgery. 2. Lonnie Grijalva MD, Infectious Diseases. Procedures CT guided abdominal and pelvic abscess drainage on 10/18/2016. CT Abdomen and Pelvis IMPRESSION: Multiple abdominal and pelvic abscesses in patient status post recent appendectomy. Hx of Present Illness This is a 45-year-old female who underwent a laparoscopic appendectomy on 10/09/2016 and she was admitted to [facility] because of acute appendicitis. Operative findings showed acute appendicitis with likely sealed perforation and presence of intra-abdominal pus. The patient was discharged home on 10/12/2016 on oral antibiotics, to be followed up with outpatient general surgery. The patient came back to the emergency room on 10/17 because of abdominal pain. The patient was noticed to have leukocytosis. The patient underwent an abdominal CT scan in the emergency room that showed multiple abdominal and pelvic abscesses. Provided the patient's history of present illness and the diagnostic findings, a clinical decision was made to admit the patient inpatient setting to have her further evaluated. Hospital Course The patient was admitted to inpatient medical surgical floor. The patient's surgeon was consulted. An infectious disease consult was also obtained. The patient underwent a CT-guided drainage of her abdominal and pelvic abscesses on 10/18/2016. The patient's pelvic and abdominal abscess showed E. coli and Bacteroides fragilis. The patient was septic secondary to underlying intra- abdominal abscess as well as urinary tract infection. The patient had no evidence of any septic shock. The patient was maintained on antimicrobials as per infectious diseases. The patient continued to have persistent leukocytosis and the patient was maintained on IV antibiotics before switching her to oral once the patient's WBC was within normal limits. The patient continues to have bilateral lower abdominal drains. This is being emptied as per the recommendations of general surgery. The patient was instructed on the use of these drains and emptying the drains. Home health was arranged for helping the patient with draining these drainage bags. The patient has remained afebrile for more than 24 hours. The patient was cleared by general surgery and infectious diseases to be discharged home. Discharge Instructions 1. Take pain medications as needed. Complete the course of antibiotics. 2. Empty the drains as instructed. 3. Regular diet as tolerated. 4. Follow-up with Dr. Viera in [address] Viera or go to the nearest emergency room if you continue to have significant abdominal pain despite taking pain medications, if you have persistent fevers, persistent nausea and vomiting, or any other unusual signs/ symptoms. 6. Activities as tolerated. Protect the drains from getting wet. The patient verbalized understanding of her discharge instructions. At this time I would like to thank all the consultants for seeing the patient and providing clinical recommendations. Case discussed with Dr. Flannery. Home Meds Active Scripts Tramadol HCl (Tramadol HCl) 50 Mg Tablet, 50 MG PO Q6H Y for PAIN, #14 TAB Prov:EMILY MALONE NP 10/25/16 Metronidazole* (Metronidazole*) 250 Mg Tablet, 250 MG PO Q8 for 10 Days, #30 TAB Prov:EMILY MALONE NP 10/25/16 Moxifloxacin Hcl* (Avelox*) 400 Mg Tablet, 400 MG PO DAILY for 10 Days, #10 TAB Prov:EMILY MALONE NP 10/25/16 Famotidine* (Pepcid*) 20 Mg Tablet, 20 MG PO BID for 10 Days, #20 TAB Prov:EMILY MALONE NP 10/12/16 Docusate Sodium* (Colace*) 100 Mg Capsule, 100 MG PO BID for 10 Days, #20 CAP Prov:EMILY MALONE NP 10/12/16 Discontinued Scripts Amoxicillin/Potassium Clav (Amox-Clav 875-125 mg Tablet) 875-125 mg Tab, 1 TAB PO BID for 7 Days, #14 TAB Prov:EMILY MALONE NP 10/12/16 Follow-up Plan Follow-up with Dr. Viera in 1 week. Primary Care Provider Not On Staff Doctor Time spent on discharge: > 30 minutes Pending Labs Laboratory Tests Test 10/25/16 05:06 White Blood Count 8.810^3/ul (4.8-10.8) Red Blood Count 3.3810^6/ul (4.20-5.40) Hemoglobin 9.5g/dl (12.0-16.0) Hematocrit 30.2% (37.0-47.0) Mean Corpuscular Volume 89.3fl (82.0-101.0) Mean Corpuscular Hemoglobin 28.1pg (29.0-33.0) Mean Corpuscular Hemoglobin Concent 31.5g/dl (32.0-37.0) Red Cell Distribution Width 15.4% (11.5-14.5) Platelet Count 21059^3/UL (140-415) Mean Platelet Volume 9.6fl (7.4-10.4) Neutrophils % 74.6% (39.0-77.0) Lymphocytes % 11.8% (15.0-51.0) Monocytes % 6.9% (0.0-11.0) Eosinophils % 2.0% (0.0-7.0) Basophils % 0.6% (0.0-2.0) Nucleated Red Blood Cells % 0.6/100WBC (0.0-0.0) Neutrophils # 6.610^3/ul (1.6-7.5) Lymphocytes # 1.010^3/ul (0.8-2.9) Monocytes # 0.610^3/ul (0.3-0.9) Eosinophils # 0.210^3/ul (0.0-0.5) Basophils # 0.110^3/ul (0.0-0.1) Nucleated Red Blood Cells # 0.110^3/ul (0.0-0.0) Sodium Level 140mmol/L (135-144) Potassium Level 5.0mmol/L (3.5-5.1) Chloride Level 102mmol/L (97-110) Carbon Dioxide Level 24mmol/L (21-31) Anion Gap 19 (8-16) Blood Urea Nitrogen 6mg/dl (7-20) Creatinine 0.50mg/dl (0.44-1.00) Glucose Level 90mg/dl (70-220) Calcium Level 8.7mg/dl (8.4-10.2) EMILY MALONE NP Oct 25, 2016 14:01 Carbon Dioxide Level 24mmol/L (21-31) Anion Gap 19 (8-16) Blood Urea Nitrogen 6mg/dl (7-20) Creatinine 0.50mg/dl (0.44-1.00) Glucose Level 90mg/dl (70-220) Calcium Level 8.7mg/dl (8.4-10.2) EMILY MALONE [employer] Oct 25, 2016 14:01
[2016-10-25] MEDS: ACETAMINOPHEN 325 MG TAB PO PRN (16:34)
== END 2016-10-25 17:15 | disposition home health service (06) | DRG 862 ==
LOC: E/R 10:46 → MS2 13:50
PROVIDERS: ADMIT Internal Medicine; ATTEND Internal Medicine
PROC: 0W9J30Z Drainage of Pelvic Cavity with Drainage Device, Percutaneous Approach (ICD-10-PCS; principal; 2016-10-18)
DX: T81.4XXA Infection following a procedure, initial encounter (principal); A41.9 Sepsis, unspecified organism; K65.1 Peritoneal abscess; N39.0 Urinary tract infection, site not specified; D64.89 Other specified anemias; Z90.710 Acquired absence of both cervix and uterus; Y83.6 Removal of other organ (partial) (total) as the cause of abnormal reaction of the patient, or of later complication, without mention of misadventure at the time of the procedure
CPT/HCPCS: 74177; 75989; 77012; 80048; 80053; 81001; 82150; 83735; 84100; 84484; 85025; 85610; 85730; 86850; 86900; 86901; 87040; 87070; 87075; 87086; 93005; 96374; 96375; 96376; J1170; J2250; J2270; J2405; J2543; J3010; J7030; J7040; J7050; Q9967

== ENCOUNTER 2016-11-01 13:32 | Outpatient (CLI) | payer MEDICAID ==
[~2016-11-01] VITALS: Ht 157.5 cm; Wt 53.2 kg
[~2016-11-01 13:32] MED LIST changes: -AMOX1TAB10 PO; -HYDR-3498 PO; +METR250T19 PO; +MOXI400T PO; +TRAM50TA2 PO
[2016-11-01 13:50] VITALS: BP 118/71; PULSE 106; RESP 18; Ht 157.5 cm; Wt 53.2 kg
--- NOTE | 2016-11-01 14:19 | PN ---
Date/Time of Note Date/Time of Note DATE: 11/01/16 TIME: 14:13 Assessment/Plan Assessment/Plan Assessment/Plan [facility] Progress Note Date of Service: 11/01/2016 Place of service: [facility] fourth floor Today's Assessment & Plan: Overall has remained stable and improved. D/c'd drains since minimal output and patient doing well, and since risks of leaving in outweighed risk of taking them out. Explained to patient who appeared to understand and agreed. With above assessment, I've recommended the following for today: 1. F/u with us in one week Thank you again for your great care of this very pleasant patient and wonderful family. If there are any questions, please feel free to call me at [phone]. Nature of presenting problem: High severity Please note that, given the multiple number of diagnoses or management options, the moderate amount and/or complexity of data needed to be reviewed, and I risk of complications and/or morbidity or mortality, this qualifies as moderate to high complexity type of decision-making. Disclaimer: Inadvertent spelling and grammatical errors are likely due to EHR/ dictation software use and do not reflect on the quality of delivered patient care. Also, please note that the electronic time recorded on this node does not necessarily reflect the actual time of the visit. Updated clinical summary: Patient is a very-pleasant and otherwise healthy 45-year-old lady without significant known comorbidities her past history, presenting to the emergency department at [facility] for signs and symptoms consistent with acute appendicitis as demonstrated by her history and physical, elevated white blood cell count to [address] scan findings possibly pointing to localized perforation of appendix with no drainable abscess. This is despite her relatively otherwise normal-appearing laboratory values. Status post an otherwise uncomplicated laparoscopic appendectomy was performed with findings of likely sealed perforation of appendix with presence of pus in the abdominal cavity at [facility] on 10/09/2016. Readmitted to [facility] 10/17/2016 with intraoperative abscess but no evidence of obvious bowel perforation or stool leakage. Status post drain placement (2) percutaneously to drain intra-abdominal fluid collections at [facility] 10/18/2016. Comorbidities: 1. Acute appendicitis with likely sealed perforation and presence of intra- abdominal pus. Status post an otherwise uncomplicated laparoscopic appendectomy was performed with findings of likely sealed perforation of appendix with presence of pus in the abdominal cavity at [facility] on 2016. 2. Hysterectomy for fibroids at [place] [address] Subjective: No major events or complaints since d/c home; reported feeling better; serosanguineous fluid being drained and minimal outputs; minimal abd pain, but still with discomfort in the RLQ; appears under control with medications; no n/v /d; no sob or cp; also no difficulty with urination; + flatus; + BM; + activity Objective: Vitals: See below Exam: GENERAL: On exam, the patient was lying in bed and appeared to be comfortable and in no acute distress. ABDOMEN: Soft, mildly tender and nondistended. Incisions are clean, dry and intact without any evidence of obvious erythema, edema, discharge, or hernia. Bilateral abdominal wall drains with serosanguineous trending towards more serous output. I d/c'd both at bedside without difficulty. There are no peritoneal signs or guarding. SKIN: Skin appears to be pink and feels warm to touch. NEUROLOGIC: Patient is awake, alert, and follows commands appropriately. Exam/Review of Systems Vital Signs Vitals Vital Signs Date Time Temp Pulse Resp B/P Pulse Ox O2 Delivery O2 Flow Rate FiO2 11/01/16 13:50 98.0 106 18 118/71 98 Room Air VIDAL ARROYO M.D. Nov 01, 2016 14:18
== END 2016-11-01 17:00 | disposition home or self-care (01) ==
LOC: HPC 13:32
PROVIDERS: ATTEND Transplant Surgery
DX: K35.80 Unspecified acute appendicitis (principal)
CPT/HCPCS: G0463

== ENCOUNTER 2016-11-10 11:21 | Outpatient (CLI) | payer MEDICAID ==
[~2016-11-10] VITALS: Ht 157.5 cm; Wt 56.4 kg
[~2016-11-10 11:21] MED LIST changes: +AMOX1TAB10 PO; +HYDR-3498 PO
[2016-11-10 12:05] VITALS: BP 118/84; PULSE 74; RESP 16; Ht 157.5 cm; Wt 56.4 kg
--- NOTE | 2016-11-10 12:30 | PN ---
Date/Time of Note Date/Time of Note DATE: 11/10/16 TIME: 12:28 Assessment/Plan Assessment/Plan Assessment/Plan [facility] Progress Note Date of Service: 11/10/2016 Place of service: [facility] fourth floor Today's Assessment & Plan: Overall has remained stable and improved. No further issues with drain sites ( one ED visit; d/c home without intervention). No further interventions from my standpoint. Explained to patient who appeared to understand and agreed. With above assessment, I've recommended the following for today: 1. F/u with with PCP 2. F/u with us prn Thank you again for your great care of this very pleasant patient and wonderful family. If there are any questions, please feel free to call me at [phone]. Nature of presenting problem: High severity Please note that, given the multiple number of diagnoses or management options, the moderate amount and/or complexity of data needed to be reviewed, and I risk of complications and/or morbidity or mortality, this qualifies as moderate to high complexity type of decision-making. Disclaimer: Inadvertent spelling and grammatical errors are likely due to EHR/ dictation software use and do not reflect on the quality of delivered patient care. Also, please note that the electronic time recorded on this node does not necessarily reflect the actual time of the visit. Updated clinical summary: Patient is a very-pleasant and otherwise healthy 45-year-old lady without significant known comorbidities her past history, presenting to the emergency department at [facility] for signs and symptoms consistent with acute appendicitis as demonstrated by her history and physical, elevated white blood cell count to [address] scan findings possibly pointing to localized perforation of appendix with no drainable abscess. This is despite her relatively otherwise normal-appearing laboratory values. Status post an otherwise uncomplicated laparoscopic appendectomy was performed with findings of likely sealed perforation of appendix with presence of pus in the abdominal cavity at [facility] on 10/09/2016. Readmitted to [facility] 10/17/2016 with intraoperative abscess but no evidence of obvious bowel perforation or stool leakage. Status post drain placement (2) percutaneously to drain intra-abdominal fluid collections at [facility] 10/18/2016. Comorbidities: 1. Acute appendicitis with likely sealed perforation and presence of intra- abdominal pus. Status post an otherwise uncomplicated laparoscopic appendectomy was performed with findings of likely sealed perforation of appendix with presence of pus in the abdominal cavity at [facility] on 2016. 2. Hysterectomy for fibroids at [place] [address] Subjective: No major events or complaints since d/c home; reported feeling better; no abd pain; no n/v/d; no sob or cp; also no difficulty with urination; + flatus; + BM ; + activity Objective: Vitals: See below Exam: GENERAL: On exam, the patient was lying in bed and appeared to be comfortable and in no acute distress. ABDOMEN: Soft, mildly tender and nondistended. Incisions are clean, dry and intact without any evidence of obvious erythema, edema, discharge, or hernia. Bilateral abdominal wall drains sites clean and intact. There are no peritoneal signs or guarding. SKIN: Skin appears to be pink and feels warm to touch. NEUROLOGIC: Patient is awake, alert, and follows commands appropriately. Exam/Review of Systems Vital Signs Vitals Vital Signs Date Time Temp Pulse Resp B/P Pulse Ox O2 Delivery O2 Flow Rate FiO2 11/10/16 12:05 98.2 74 16 118/84 99 Room Air VIDAL ARROYO M.D. Nov 10, 2016 12:30
== END 2016-11-10 17:00 | disposition home or self-care (01) ==
LOC: HPC 11:21
PROVIDERS: ATTEND Transplant Surgery
DX: K35.80 Unspecified acute appendicitis (principal); Z90.710 Acquired absence of both cervix and uterus
CPT/HCPCS: G0463